=== PATIENT | female | born 1985 | race Caucasian/White ===

== ENCOUNTER 2018-10-04 11:02 | Outpatient (REF) | payer MEDICAID, SELFPAY ==
--- NOTE | 2018-10-04 10:30 | PAPFT_PTH ---
PATIENT: Wilfredo Niño LOC: DAVID U#:[id number] AGE/SX: 33/F ROOM: RE10/04/[address]: EDUAR Acosta : 1985 BED: DIS: 10/04/2018 SPEC #: [id number] RECD: 10/04/18 13:09 STATUS: PEDRO LUIS JAMES #: [id number] TEO: 10/04/18 10:[address]: Lanie Gates DEPT: [facility] Cytology RECD BY: Sheryl Nicolas ENTERED: 10/04/18 13:09 SP TYPE: PAPFT OTHR DR: Miseal Khan MD Tissues: 1 - CX/ENDOCX FOR PAP SMEARS Procedures: PAP THIN PREP/UVM Screening HPV DNA PROBE Comments: [id number]
[2018-10-05 13:07] LABS: Chlamydia Result Negative; GC Result Negative; Specimen Description CERVIX
== END 2018-10-04 11:22 ==
LOC: LBN 11:02
PROVIDERS: PCP Pediatrics; Visit Provider Nurse Practitioner Family
DX: Z11.3 Encounter for screening for infections with a predominantly sexual mode of transmission (principal); Z12.4 Encounter for screening for malignant neoplasm of cervix; Z11.51 Encounter for screening for human papillomavirus (HPV)
CPT/HCPCS: 87491; 87591; 88142; 87624

== ENCOUNTER 2020-03-25 15:12 | Outpatient (REF) | payer MEDICAID, SELFPAY ==
[2020-03-26 15:38] LABS: Chlamydia Result Negative (Negative); GC Result Negative (Negative)
== END 2020-03-25 15:32 ==
LOC: LBN 15:12
PROVIDERS: PCP Pediatrics; Visit Provider Nurse Practitioner Family
DX: Z11.3 Encounter for screening for infections with a predominantly sexual mode of transmission (principal)
CPT/HCPCS: 87491; 87591

== ENCOUNTER 2021-01-01 16:00 | Outpatient (REF) | payer MEDICAID, SELFPAY ==
--- NOTE | 2021-01-01 15:45 | VUL_PTH ---
PATIENT: Wilfredo Niño LOC: N U#:[id number] AGE/SX: 35/F ROOM: RE01/01/[address]: Lynn Cedeño DO : 1985 BED: DIS: 01/01/2021 SPEC #: [id number] RECD: 01/01/21 16:24 STATUS: PEDRO LUIS REFernando #: [id number] TEO: 01/01/21 15:[address]: Lynn Cedeño DEPT: Surgical Specimen RECD BY: Sheryl Nicolas Tissues: 1 - VULVA BIOPSY Procedures: GROSS AND MICRO LEVEL 4 SPECIAL STAIN 1 Comments: [id number]
== END 2021-01-01 16:01 | disposition home or self-care (01) ==
LOC: LBN 16:00
PROVIDERS: Visit Provider Obstetrics & Gynecology
DX: N90.3 Dysplasia of vulva, unspecified (principal); D28.0 Benign neoplasm of vulva
CPT/HCPCS: 88305; 88312

== ENCOUNTER 2021-01-23 02:50 | Outpatient (CLI) | payer MEDICAID, SELFPAY ==
[2021-01-23 08:01] LABS: Abs Immature Grans 0.02 10^3/uL (0.0-0.06); Absolute Basophil Count 0.05 10^3/uL (0.0-0.2); Absolute Eosinophil Count 0.06 10^3/uL (0.0-0.7); Absolute Lymphocyte Count 1.75 10^3/uL (1.2-3.4); Absolute Monocyte Count 0.45 10^3/uL (0.1-0.8); Absolute Neutrophil Count 3.25 10^3/uL (1.2-6.7); Basophils % 0.9; Eosinophils % 1.1; HGB 8.4 g/dL (11.2-15.7); Immature Grans % 0.4; Lymphocytes % 31.4; MCH 21.2 pg (27.0-33.0); MCV 73.2 fL (80-95); MPV 9.4 fL (8.0-11.0); Monocytes % 8.1; Neutrophils % 58.1; Nucleated RBC 0 %; Platelet Count 280 10^3/uL (130-400); RBC 3.96 10^6/uL (3.93-5.22); RDW 17.1 % (11.7-14.6); RDW-SD 45.3 fL; WBC 5.58 10^3/uL (4.4-10.8)
[2021-01-23 08:06] LABS: ESR 23 mm/hr (0-20)
[2021-01-23 08:21] LABS: Diff Comment RBC Morph Reviewed; Hypochromasia 2+; Microcytosis 2+
[2021-01-23 09:20] LABS: ALT 26 U/L (14-59); AST 22 U/L (15-37); Albumin 3.9 g/dL (3.4-5.0); Alkaline Phosphatase 46 U/L (46-116); Anion Gap 9.1 mmol/L (3-11); BUN 7 mg/dL (7-18); Bilirubin, Total 0.5 mg/dL (0.2-1.0); CO2 25.9 mmol/L (21.0-32.0); CREATININE 0.7 mg/dL (0.55-1.02); Calcium 8.8 mg/dL (8.5-10.1); Chloride 104 mmol/L (98-107); Glucose 84 mg/dL (74-106); Sodium 139 mmol/L (136-145); Total Protein 7.7 g/dL (6.4-8.2)
[2021-01-23 09:22] LABS: C-Reactive Protein < 0.05 mg/dL (0.0-0.3)
[2021-01-24 12:34] LABS: HSV Type 1 Ab, IgG Negative (Negative); HSV Type 2 Ab, IgG Negative (Negative)
[2021-01-25 09:54] LABS: HBs Antibody, Quant 3.5 mIU/mL (See Note); Hepatitis B Surface Ab Negative (See Note)
[2021-01-25 10:16] LABS: Hepatitis B Surface Ag Negative (Negative)
[2021-01-25 11:03] LABS: Hepatitis C Ab w Rflx HCV PCR Negative (Negative)
[2021-01-27 15:13] LABS: TB Interpretation Negative (Negative)
== END 2021-01-23 02:51 | disposition home or self-care (01) ==
LOC: LBO 02:50
PROVIDERS: Nurse Practitioner Adult Health; Visit Provider Obstetrics & Gynecology
DX: K60.1 Chronic anal fissure (principal); Z11.59 Encounter for screening for other viral diseases
CPT/HCPCS: 36415; 80053; 85652; 86706; 86803; 87340; 85025; 86140; 86480; 86695; 86696

== ENCOUNTER 2021-03-06 02:31 | Outpatient (CLI) | payer MEDICAID, SELFPAY ==
[2021-03-07 10:39] LABS: Hep B Core Antibody Negative (Negative)
[2021-03-12 16:25] LABS: 6-Methylmercaptopurine ribosid 6.88 nmol/mL/h (5.04-9.57)
== END 2021-03-06 02:32 | disposition home or self-care (01) ==
LOC: LBO 02:31
PROVIDERS: Visit Provider Internal Medicine Gastroenterology
DX: K50.118 Crohn's disease of large intestine with other complication (principal)
CPT/HCPCS: 36415; 82657; 86704

== ENCOUNTER 2021-05-02 01:29 | Outpatient (CLI) | payer MEDICAID, SELFPAY ==
--- NOTE | 2021-05-02 06:30 | DI.US_ITS ---
Exam(s) US PELVIS EXAM: US PELVIS CLINICAL HISTORY: check fibroids,D25.9. TECHNIQUE: Transabdominal pelvic ultrasound was performed using standard protocol. The patient elec tito to forego the transvaginal portion of the examination. FINDINGS: KIDNEYS: Kidneys are symmetric in size. No evidence of renal calculi. No evidence of hydronephrosis. No renal mass or cyst identified. UTERUS: Position: Anteverted. Size: 9.2 long by 8.2 AP by 8.8 transverse cm Endometrium: 0.8 cm. Normal for patient's menstrual status. Myometrium: 3 discrete intramural uterine fibroids are visualized. The largest is in the left aspect of the body and measures 2.5 x 5 x 5.6 cm. The smallest is in the fundus and measures 1.8 x 2.1 cm. There is a 3 x 3 cm fibroid in the right aspect of the uterine fundus. Cervix: Unremarkable. OVARIES: Right: 3.6 x 2.7 x 2 cm Cyst or mass: Small functional cysts are present. Left: 4.8 x 2.2 x 2 cm Cyst or mass: Small functional cysts are present. DOPPLER: Color: Symmetric and uniform flow to both ovaries. No hyperemia. Duplex: Normal ovarian arterial waveforms visualized. CUL-DE-SAC: Free fluid: None. Other: None. IMPRESSION: 1. Normal sonographic appearance of the kidneys. 2. Fibroid uterus. The largest measures 5.6 cm in maximum diameter. 3. Unremarkable bilateral ovaries. DATA REPOSITORY:
== END 2021-05-02 01:49 ==
PROVIDERS: Visit Provider Obstetrics & Gynecology
DX: D25.1 Intramural leiomyoma of uterus (principal)
CPT/HCPCS: 76856

== ENCOUNTER 2021-05-08 01:27 | Outpatient (RCR) | payer MEDICAID, SELFPAY ==
[2021-05-08] VITALS (7 sets, daily range): BP systolic 123–147; BP diastolic 76–89; PULSE 63–76; RESP 16–18; TEMP 36.6–37.1; O2SAT 100
[2021-05-08] MEDS: Loratidine 10 MG TAB PO (08:02)
[2021-05-08] MEDS: Acetaminophen 325 MG TAB PO (08:02)
[2021-05-08] MEDS: inFLIXimab 300 MG in Normal Saline 250 ML 125 MG IVPB (08:39)
[2021-05-08] MEDS: Normal Saline Flush 10 ML SYR IVP (08:39)
== END 2021-05-19 23:59 | disposition home or self-care (01) ==
LOC: INF 01:27
PROVIDERS: Visit Provider Internal Medicine
DX: K50.90 Crohn's disease, unspecified, without complications (principal)
CPT/HCPCS: 96365; 96366; 96413; 96415; J1745

== ENCOUNTER 2021-06-19 03:01 | Outpatient (RCR) | payer MEDICAID, SELFPAY ==
[2021-05-20 00:16] VITALS: BP 123/76; PULSE 68; RESP 16; TEMP 37.1
[2021-05-22] VITALS (8 sets, daily range): BP systolic 113–139; BP diastolic 67–84; PULSE 58–70; RESP 16; TEMP 36.3–37; O2SAT 99–100
[2021-05-22] MEDS: Loratidine 10 MG TAB PO (07:49)
[2021-05-22] MEDS: Normal Saline Flush 10 ML SYR IVP (07:50)
[2021-05-22] MEDS: Acetaminophen 325 MG TAB PO (07:50)
[2021-05-22] MEDS: inFLIXimab 300 MG in Normal Saline 250 ML 125 MG IVPB (08:08)
[2021-05-22 08:10] LABS: Abs Immature Grans 0.01 10^3/uL (0.0-0.06); Absolute Basophil Count 0.04 10^3/uL (0.0-0.2); Absolute Eosinophil Count 0.07 10^3/uL (0.0-0.7); Absolute Lymphocyte Count 1.84 10^3/uL (1.2-3.4); Absolute Monocyte Count 0.28 10^3/uL (0.1-0.8); Absolute Neutrophil Count 2.82 10^3/uL (1.2-6.7); Basophils % 0.8; Eosinophils % 1.4; HCT 35.7 % (36.0-46.0); HGB 11.1 g/dL (11.2-15.7); Immature Grans % 0.2; Lymphocytes % 36.4; MCH 28.8 pg (27.0-33.0); MCHC 31.1 % (32.0-36.0); MCV 92.5 fL (80-95); MPV 9.5 fL (8.0-11.0); Monocytes % 5.5; Neutrophils % 55.7; Nucleated RBC 0 %; Platelet Count 243 10^3/uL (130-400); RBC 3.86 10^6/uL (3.93-5.22); RDW-SD 43.2 fL; WBC 5.06 10^3/uL (4.4-10.8)
[2021-05-22 08:25] LABS: ALT 22 U/L (14-59); AST 21 U/L (15-37); Albumin 3.8 g/dL (3.4-5.0); Alkaline Phosphatase 36 U/L (46-116); Bilirubin, Direct 0.3 mg/dL (0.0-0.2); Bilirubin, Total 1.1 mg/dL (0.2-1.0); Total Protein 7.5 g/dL (6.4-8.2)
[2021-05-22 08:27] LABS: C-Reactive Protein < 0.05 mg/dL (0.0-0.3)
[2021-06-19] MEDS: Acetaminophen 325 MG TAB PO (08:00)
[2021-06-19] MEDS: Loratidine 10 MG TAB PO (08:01)
[2021-06-19] MEDS: Normal Saline Flush 10 ML SYR IVP (08:01)
[2021-06-19 08:15] VITALS: BP 124/81; PULSE 74; RESP 16; TEMP 37; O2SAT 100
[2021-06-19] MEDS: inFLIXimab 300 MG in Normal Saline 250 ML 125 MG IVPB (08:19)
[2021-06-19 08:40] VITALS: BP 120/78; PULSE 68; RESP 16; TEMP 36.8; O2SAT 99
[2021-06-19 08:58] VITALS: BP 125/76; PULSE 67; RESP 16; TEMP 36.6; O2SAT 100
[2021-06-19 09:12] VITALS: BP 130/82; PULSE 65; RESP 16; TEMP 36.7; O2SAT 100
[2021-06-19 09:44] VITALS: BP 118/67; PULSE 66; RESP 16; TEMP 36.7; O2SAT 100
[2021-06-19 10:16] VITALS: BP 121/73; PULSE 64; RESP 16; TEMP 36.7; O2SAT 97
== END 2021-06-19 23:59 | disposition home or self-care (01) ==
LOC: INF 03:01
PROVIDERS: Internal Medicine Gastroenterology; Visit Provider Internal Medicine
DX: K50.018 Crohn's disease of small intestine with other complication (principal); K50.119 Crohn's disease of large intestine with unspecified complications
CPT/HCPCS: 36415; 80076; 96365; 96366; 96413; 96415; 85025; 86140; J1745

== ENCOUNTER 2021-08-29 01:04 | Outpatient (RCR) | payer MEDICAID, SELFPAY ==
[2021-08-20 00:11] VITALS: BP 121/73; PULSE 64; RESP 16; TEMP 36.7
[2021-08-29] MEDS: Acetaminophen 325 MG TAB PO (08:40)
[2021-08-29] MEDS: Loratidine 10 MG TAB PO (08:40)
[2021-08-29 08:50] VITALS: BP 132/63; PULSE 66; RESP 14; TEMP 36.5; O2SAT 100
[2021-08-29 09:01] LABS: Abs Immature Grans 0.01 10^3/uL (0.0-0.06); Absolute Basophil Count 0.05 10^3/uL (0.0-0.2); Absolute Eosinophil Count 0.07 10^3/uL (0.0-0.7); Absolute Lymphocyte Count 1.03 10^3/uL (1.2-3.4); Absolute Monocyte Count 0.36 10^3/uL (0.1-0.8); Absolute Neutrophil Count 3.58 10^3/uL (1.2-6.7); Eosinophils % 1.4; HCT 31.4 % (36.0-46.0); Immature Grans % 0.2; Lymphocytes % 20.2; MCH 29.2 pg (27.0-33.0); MCHC 31.8 % (32.0-36.0); MCV 92 fL (80-95); MPV 9.5 fL (8.0-11.0); Monocytes % 7.1; Neutrophils % 70.1; Platelet Count 330 10^3/uL (130-400); RBC 3.43 10^6/uL (3.93-5.22); RDW 14.1 % (11.7-14.6); RDW-SD 46.8 fL
[2021-08-29 09:23] LABS: ALT 39 U/L (14-59); AST 47 U/L (15-37); Alkaline Phosphatase 42 U/L (46-116); Bilirubin, Direct 0.2 mg/dL (0.0-0.2); Bilirubin, Total 0.8 mg/dL (0.2-1.0); C-Reactive Protein 0.06 mg/dL (0.0-0.3); Total Protein 7.4 g/dL (6.4-8.2)
[2021-08-29] MEDS: inFLIXimab 300 MG in Normal Saline 250 ML 125 MG IVPB (09:30)
[2021-08-29 09:45] VITALS: BP 124/81; PULSE 69; RESP 16; TEMP 36.6; O2SAT 100
[2021-08-29] MEDS: Normal Saline Flush 10 ML SYR IVP (09:46)
[2021-08-29 10:05] VITALS: BP 121/76; PULSE 67; RESP 14; TEMP 36.5; O2SAT 100
[2021-08-29 10:15] VITALS: BP 120/73; PULSE 57; RESP 16; TEMP 36.5; O2SAT 100
[2021-08-29 10:30] VITALS: BP 134/80; PULSE 72; RESP 16; TEMP 36.8; O2SAT 99
[2021-08-29 11:00] VITALS: BP 128/80; PULSE 7; RESP 16; TEMP 36.6; O2SAT 99
== END 2021-09-18 23:59 | disposition home or self-care (01) ==
LOC: INF 01:04
PROVIDERS: Visit Provider Internal Medicine
DX: K50.018 Crohn's disease of small intestine with other complication (principal); K50.119 Crohn's disease of large intestine with unspecified complications
CPT/HCPCS: 36415; 80076; 96365; 96366; 96413; 96415; 85025; 86140; J1745

== ENCOUNTER 2021-09-25 04:14 | Outpatient (CLI) | payer MEDICAID, SELFPAY ==
[2021-09-25 10:14] LABS: Absolute Basophil Count 0.04 10^3/uL (0.0-0.2); Absolute Eosinophil Count 0.05 10^3/uL (0.0-0.7); Absolute Lymphocyte Count 1.64 10^3/uL (1.2-3.4); Absolute Monocyte Count 0.39 10^3/uL (0.1-0.8); Absolute Neutrophil Count 1.36 10^3/uL (1.2-6.7); Basophils % 1.1; Eosinophils % 1.4; HGB 11.2 g/dL (11.2-15.7); Lymphocytes % 47.1; MCH 29.2 pg (27.0-33.0); MCHC 32.9 % (32.0-36.0); MCV 89 fL (80-95); MPV 8.8 fL (8.0-11.0); Monocytes % 11.2; Neutrophils % 39.2; Platelet Count 317 10^3/uL (130-400); RBC 3.84 10^6/uL (3.93-5.22); RDW 13.5 % (11.7-14.6); RDW-SD 44.2 fL; WBC 3.48 10^3/uL (4.4-10.8)
[2021-09-25 10:34] LABS: ALT 28 U/L (14-59); AST 22 U/L (15-37); Albumin 3.9 g/dL (3.4-5.0); Alkaline Phosphatase 36 U/L (46-116); Bilirubin, Direct 0.2 mg/dL (0.0-0.2); Bilirubin, Total 0.5 mg/dL (0.2-1.0); Total Protein 7.5 g/dL (6.4-8.2)
[2021-09-25 10:35] LABS: C-Reactive Protein < 0.05 mg/dL (0.0-0.3)
[2021-09-25 10:44] LABS: Iron 23 ug/dL (50-170); Total Iron Binding Capacity 338 ug/dL (250-450); Transferrin Sat 7 % (15-50)
[2021-09-25 11:11] LABS: Ferritin 13 ng/mL (8-252); Vitamin B12 390 pg/mL (193-986)
[2021-09-27 23:50] LABS: Infliximab 33 mcg/mL (<=5.0)
== END 2021-09-25 04:15 | disposition home or self-care (01) ==
LOC: LBO 04:14
PROVIDERS: Visit Provider Internal Medicine Gastroenterology
DX: K50.018 Crohn's disease of small intestine with other complication (principal); K50.119 Crohn's disease of large intestine with unspecified complications; D64.9 Anemia, unspecified
CPT/HCPCS: 36415; 80076; 82397; 82657; 82607; 82728; 83540; 83550; 85025; 86140

== ENCOUNTER 2021-10-16 02:46 | Outpatient (RCR) | payer MEDICAID, SELFPAY ==
[2021-09-19 00:17] VITALS: BP 128/80; PULSE 7; RESP 16; TEMP 36.6
[2021-10-16] VITALS (7 sets, daily range): BP systolic 111–124; BP diastolic 69–78; PULSE 57–71; RESP 16; TEMP 36.5–36.8; O2SAT 100
[2021-10-16] MEDS: Acetaminophen 325 MG TAB 650 MG PO (08:12)
[2021-10-16] MEDS: diphenhydrAMINE 25 MG CAP PO (08:12)
[2021-10-16] MEDS: Normal Saline Flush 10 ML SYR IVP (08:43)
[2021-10-16] MEDS: inFLIXimab 600 MG in Normal Saline 250 ML 125 MG IVPB (08:43)
== END 2021-10-19 23:59 | disposition home or self-care (01) ==
LOC: INF 02:46
PROVIDERS: Visit Provider Internal Medicine
DX: K50.90 Crohn's disease, unspecified, without complications (principal)
CPT/HCPCS: 96365; 96366; 96413; 96415; J1745

== ENCOUNTER 2021-12-26 01:14 | Outpatient (RCR) | payer MEDICAID, SELFPAY ==
[2021-12-20 00:02] VITALS: BP 114/72; PULSE 62; RESP 16; TEMP 36.5
[2021-12-26] VITALS (7 sets, daily range): BP systolic 117–150; BP diastolic 70–88; PULSE 56–78; RESP 16; TEMP 36.5–36.8; O2SAT 99–100
[2021-12-26] MEDS: Acetaminophen 325 MG TAB PO (07:54)
[2021-12-26] MEDS: Loratidine 10 MG TAB PO (07:54)
[2021-12-26] MEDS: Normal Saline Flush 10 ML SYR IVP (07:55)
[2021-12-26 08:21] LABS: Abs Immature Grans 0.01 10^3/uL (0.0-0.06); Absolute Basophil Count 0.05 10^3/uL (0.0-0.2); Absolute Eosinophil Count 0.09 10^3/uL (0.0-0.7); Absolute Lymphocyte Count 1.49 10^3/uL (1.2-3.4); Absolute Monocyte Count 0.38 10^3/uL (0.1-0.8); Basophils % 1.3; Eosinophils % 2.4; HCT 35.7 % (36.0-46.0); HGB 11.2 g/dL (11.2-15.7); Immature Grans % 0.3; Lymphocytes % 40.1; MCHC 31.4 % (32.0-36.0); MCV 89 fL (80-95); MPV 10.5 fL (8.0-11.0); Monocytes % 10.2; Neutrophils % 45.7; Platelet Count 255 10^3/uL (130-400); RDW 16.2 % (11.7-14.6); RDW-SD 53.1 fL; WBC 3.72 10^3/uL (4.4-10.8)
[2021-12-26] MEDS: inFLIXimab 300 MG in Normal Saline 250 ML 125 MG IVPB (08:27)
[2021-12-26 08:39] LABS: ALT 35 U/L (14-59); AST 32 U/L (15-37); Albumin 4.4 g/dL (3.4-5.0); Alkaline Phosphatase 38 U/L (46-116); Bilirubin, Direct 0.2 mg/dL (0.0-0.2); Bilirubin, Total 0.9 mg/dL (0.2-1.0); C-Reactive Protein 0.06 mg/dL (0.0-0.3); Total Protein 8.1 g/dL (6.4-8.2)
== END 2022-01-19 23:59 | disposition home or self-care (01) ==
LOC: INF 01:14
PROVIDERS: Internal Medicine Gastroenterology; Visit Provider Internal Medicine
DX: K50.018 Crohn's disease of small intestine with other complication (principal); K50.119 Crohn's disease of large intestine with unspecified complications
CPT/HCPCS: 36415; 80076; 96365; 96366; 96413; 96415; 85025; 86140; J1745

== ENCOUNTER 2022-02-20 01:44 | Outpatient (RCR) | payer MEDICAID, SELFPAY ==
[2022-01-20 00:15] VITALS: BP 121/70; PULSE 66; RESP 16; TEMP 36.7
[2022-02-20] VITALS (7 sets, daily range): BP systolic 109–125; BP diastolic 67–80; PULSE 53–70; RESP 16; TEMP 36.9–37.6; O2SAT 100
[2022-02-20] MEDS: Acetaminophen 325 MG TAB PO (07:54)
[2022-02-20] MEDS: Loratidine 10 MG TAB PO (07:54)
[2022-02-20] MEDS: inFLIXimab 300 MG in Normal Saline 250 ML 125 MG IVPB (08:26)
[2022-02-20] MEDS: Normal Saline Flush 10 ML SYR IVP (08:26)
== END 2022-03-21 23:59 | disposition home or self-care (01) ==
LOC: INF 01:44
PROVIDERS: Visit Provider Family Medicine
DX: K50.90 Crohn's disease, unspecified, without complications (principal)
CPT/HCPCS: 96365; 96366; 96413; 96415; J1745

== ENCOUNTER 2022-04-17 01:00 | Outpatient (RCR) | payer MEDICAID, SELFPAY ==
[2022-03-22 00:01] VITALS: BP 122/76; PULSE 54; RESP 16; TEMP 37.3
[2022-04-17] MEDS: Normal Saline Flush 10 ML SYR IVP (08:04)
[2022-04-17] MEDS: Acetaminophen 325 MG TAB PO (08:04)
[2022-04-17] MEDS: Loratidine 10 MG TAB PO (08:04)
[2022-04-17 08:07] VITALS: BP 118/68; PULSE 56; RESP 17; TEMP 36.9; O2SAT 100
[2022-04-17] MEDS: inFLIXimab 300 MG in Normal Saline 250 ML 125 MG IVPB (08:23)
[2022-04-17 08:40] VITALS: BP 114/73; PULSE 58; RESP 17; TEMP 37; O2SAT 100
[2022-04-17 08:48] LABS: HCT 32.4 % (36.0-46.0); HGB 10.3 g/dL (11.2-15.7); MCH 27.5 pg (27.0-33.0); MCHC 31.8 % (32.0-36.0); MCV 86 fL (80-95); MPV 10.8 fL (8.0-11.0); Platelet Count 267 10^3/uL (130-400); RBC 3.75 10^6/uL (3.93-5.22); RDW-SD 40.7 fL; WBC 4.51 10^3/uL (4.4-10.8)
[2022-04-17 08:57] VITALS: BP 132/80; PULSE 54; RESP 16; TEMP 36.9; O2SAT 100
[2022-04-17 09:01] LABS: ALT 20 U/L (14-59); AST 26 U/L (15-37); Albumin 4.1 g/dL (3.4-5.0); Alkaline Phosphatase 37 U/L (46-116); Bilirubin, Direct 0.1 mg/dL (0.0-0.2); Bilirubin, Total 0.4 mg/dL (0.2-1.0); Total Protein 7.8 g/dL (6.4-8.2)
[2022-04-17 09:04] LABS: C-Reactive Protein < 0.05 mg/dL (0.0-0.3)
[2022-04-17 09:10] VITALS: BP 128/79; PULSE 58; RESP 16; TEMP 37.1; O2SAT 100
[2022-04-17 09:25] VITALS: BP 122/79; PULSE 56; RESP 16; TEMP 37.1; O2SAT 100
[2022-04-17 09:55] VITALS: BP 116/69; PULSE 56; RESP 16; TEMP 37; O2SAT 99
== END 2022-04-21 23:59 | disposition home or self-care (01) ==
LOC: INF 01:00
PROVIDERS: Visit Provider Family Medicine
DX: K50.90 Crohn's disease, unspecified, without complications (principal)
CPT/HCPCS: 36415; 80076; 85027; 96365; 96366; 96413; 96415; 86140; J1745

== ENCOUNTER 2022-06-12 01:54 | Outpatient (RCR) | payer MEDICAID, SELFPAY ==
[2022-04-22 00:03] VITALS: BP 116/69; PULSE 56; RESP 16; TEMP 37
[2022-06-12] VITALS (7 sets, daily range): BP systolic 119–133; BP diastolic 75–83; PULSE 61–79; RESP 16–17; TEMP 36.4–36.6; O2SAT 100
[2022-06-12] MEDS: Acetaminophen 325 MG TAB PO (08:05)
[2022-06-12] MEDS: Normal Saline Flush 10 ML SYR IVP (08:05)
[2022-06-12] MEDS: Loratidine 10 MG TAB PO (08:05)
[2022-06-12] MEDS: inFLIXimab 300 MG in Normal Saline 250 ML 125 MG IVPB (08:40)
[2022-06-12 09:01] LABS: Abs Immature Grans 0.01 10^3/uL (0.0-0.06); Absolute Basophil Count 0.07 10^3/uL (0.0-0.2); Absolute Eosinophil Count 0.41 10^3/uL (0.0-0.7); Absolute Lymphocyte Count 2.09 10^3/uL (1.2-3.4); Absolute Monocyte Count 0.36 10^3/uL (0.1-0.8); Absolute Neutrophil Count 1.65 10^3/uL (1.2-6.7); Basophils % 1.5; Eosinophils % 8.9; HCT 31.4 % (36.0-46.0); HGB 10.3 g/dL (11.2-15.7); Immature Grans % 0.2; Lymphocytes % 45.5; MCH 28.6 pg (27.0-33.0); MCHC 32.8 % (32.0-36.0); MCV 87 fL (80-95); Monocytes % 7.8; Neutrophils % 36.1; Platelet Count 323 10^3/uL (130-400); RDW 15.7 % (11.7-14.6); RDW-SD 50.4 fL; WBC 4.59 10^3/uL (4.4-10.8)
[2022-06-12 09:33] LABS: ALT 21 U/L (14-59); AST 27 U/L (15-37); Albumin 3.7 g/dL (3.4-5.0); Alkaline Phosphatase 49 U/L (46-116); Bilirubin, Direct 0.2 mg/dL (0.0-0.2); Bilirubin, Total 0.8 mg/dL (0.2-1.0); Total Protein 6.9 g/dL (6.4-8.2)
[2022-06-12 09:57] LABS: Iron 26 ug/dL (50-170); Total Iron Binding Capacity 334 ug/dL (250-450); Transferrin Sat 8 % (15-50)
[2022-06-12 10:01] LABS: Ferritin 15 ng/mL (8-252)
[2022-06-15 10:17] LABS: IgA 245 mg/dL (85-499)
[2022-06-15 13:34] LABS: Tissue Transglutaminase IgA <1.2 U/mL (<4.0)
[2022-06-15 14:07] LABS: TB Interpretation Negative (Negative); TB1 Ag minus Nil 0.01 IU/ml; TB2 Ag minus Nil 0.01 IU/mL
[2022-06-18 19:09] LABS: Infliximab 11 mcg/mL (<=5.0)
== END 2022-06-19 23:59 | disposition home or self-care (01) ==
LOC: INF 01:54
PROVIDERS: Visit Provider Family Medicine
DX: K50.119 Crohn's disease of large intestine with unspecified complications (principal); K50.018 Crohn's disease of small intestine with other complication; D50.0 Iron deficiency anemia secondary to blood loss (chronic)
CPT/HCPCS: 36415; 80076; 82397; 82784; 96365; 96366; 82728; 83516; 83540; 83550; 85025; 86140; 86480; J1745

== ENCOUNTER 2022-08-24 02:17 | Outpatient (CLI) | payer MEDICAID, SELFPAY ==
--- NOTE | 2022-08-24 07:45 | DI.US_ITS ---
Exam(s) US PELVIS TRANSVAGINAL EXAM: US PELVIS TRANSVAGINAL CLINICAL HISTORY: soft tissue mass, rlq abd mass, r19.03. TECHNIQUE: Transabdominal and transvaginal pelvic ultrasound was performed using standard protocol. US US PELVIS from 05/02/2021 FINDINGS: UTERUS: Position: Anteverted. Size: 14.2 long by 9.1 AP by 8.9 transverse cm Endometrium: 1.5 cm. Normal for patient's menstrual status. Myometrium: There are multiple uterine fibroids present. The largest measures 7.4 x 7.3 x 8.1 cm. T his compares to 7.5 x 5 x 5.6 cm. In the prior report, dated 05/02/2021, the measurement of the large st fibroid in the left should read 7.5 x 5 x 5.6 cm. Cervix: Unremarkable. OVARIES: Right: 3.6 x 2.1 x 3.1 cm Cyst or mass: No suspicious cystic or solid masses. Left: 6 x 3 x 3.6 cm Cyst or mass: No suspicious cystic or solid masses. DOPPLER: Color: Symmetric and uniform flow to both ovaries. CUL-DE-SAC: Free fluid: None. Other: None. IMPRESSION: 1. Enlarged fibroid uterus. Increase in size of the largest uterine fibroid which now measures 7.4 x 7.3 x 8.1 cm. This compares to 7.5 x 5 x 5.6 cm. 2. Unremarkable bilateral ovaries. DATA REPOSITORY:
== END 2022-08-24 02:37 ==
PROVIDERS: Visit Provider Obstetrics & Gynecology
DX: R19.03 Right lower quadrant abdominal swelling, mass and lump (principal); N85.2 Hypertrophy of uterus
CPT/HCPCS: 76830; 76856

== ENCOUNTER 2022-09-03 01:16 | Outpatient (CLI) | payer MEDICAID, SELFPAY ==
[2022-09-03 19:09] LABS: LH 5.1 mIU/mL (See Note)
== END 2022-09-03 01:17 | disposition home or self-care (01) ==
LOC: LBO 01:16
PROVIDERS: Visit Provider Advanced Practice Midwife
DX: D25.9 Leiomyoma of uterus, unspecified (principal)
CPT/HCPCS: 36415; 83001; 83002

== ENCOUNTER → 2022-12-21 03:18 | Outpatient (CLI) | payer MEDICAID, SELFPAY ==
--- NOTE | 2022-12-21 07:00 | DI.RAD_ITS ---
Exam(s) XR FOOT LT COMPLETE EXAM: XR FOOT LT COMPLETE CLINICAL HISTORY: Painful lt bunion,LT FOOT PAIN, M79.672. TECHNIQUE: 2D digital imaging was performed. COMPARISON: No exams were available for comparison FINDINGS: 3 views No evidence of acute fracture or diastasis the Lisfranc joint. There is hallux valgus. No obvious degenerative changes in the great toe metatarsophalangeal joint. The more medial of the 2 sesamoid bones subjacent to the great toe metatarsal head is bipartite. No osseous lesions nor erosions nor significant osseous findings in the mid and hindfoot. IMPRESSION: Hallux valgus. DATA REPOSITORY: RADIATION DOSE DELIVERED:
== END ==
PROVIDERS: Visit Provider Podiatrist
DX: M20.12 Hallux valgus (acquired), left foot (principal)
CPT/HCPCS: 73630

== ENCOUNTER → 2023-10-14 01:01 | Outpatient (CLI) | payer MEDICAID, SELFPAY ==
--- OUTSIDE RECORDS SUMMARY | 2023-10-14 01:03 | XMS_ITS | Encounter Summary ---
Author Organization [facility] Address [address] [place] [address] Care Team Providers Care Tool Profiling Machine Set Up Operator Name Role Phone Unknown, Provider Primary Care Provider Encounter Details Date Type Department Care Team (Late st Contact Info) Description 10/04/2018 Results Only [facility] [phone] Lanie Gates, [address] [place] [phone] Social History Tobacco Use Types Packs/Day Years Used Date Smoking Tobacco: Never Assessed Sex and Gender Information Value Date Recorded Sex Assigned at Not on file Gender Identity Not on file Sexual Orientation Not on file documented as of this encounter Plan of Treatment Not on file documented as of this encounter Procedures Procedure Name Priority Date/Time Associated Diagnosis Comments PAP TEST- RESULT ONLY Routine 10/04/2018 0:00 EDT documented in this encounter Results * PAP TEST- RESULT ONLY (10/04/2018 0:00 EDT) Pathology Report: CYTOPATHOLOGY REPORT Reports generated via electronic interface contain original data; however they are lacking the format of the original report. Caution should be taken when reading/interpreti ng unformatted reports. Name: ? RENAY JOE ? Accession #: ? [id number] ? : ? 1985 (Age: 33) ??F ?Collect Date: ? 10/04/2018 ? Location: ? [facility] ? Receive Date: ? 10/05/2018 ? Provider: LANIE GATES TANK TESTER Copy to: ? Final Report SPECIMEN ADEQUACY ? Satisfactory for Evaluation - transformation zone component present GENERAL CATEGORIZATION ? Negative for Intraepithelial Lesion or Malignancy ?? Last Menstrual Period: 09/26/18 Specimen/Source: ??Pap Test, Cervix, ThinPrep Imaging System with manual evaluation Document reviewed and electronically signed by: ? JOSE Vergara(ASCP) ? Report ??Date: 10/06/2018 12:07 HPV with Pap Test ? Date Ordered: ? 10/06/2018 ? Status: ?? Signed Out ?Date Complete: ? 10/07/2018 ? By: ??System Interface ? Date Reported: ? 10/07/2018 ? Interpretation RESULT: Negative for HPV. No E6 or E7 mRNA is detected from HPV types 16,18,31,33,35, 39,45,51,52,56,58, 59,66, and 68 by chair inspector mediated amplification. Comments Document reviewed and electronically signed by: ? System Interface ? Report date: 10/07/2018 By the signature above, the attending physician certifies that he/she has personally conducted a gross and/or microscopic examination of the described specimens and rendered or confirmed the above diagnosis. End of Report [facility] 10/04/2018 10/05/2018 Lanie Gates TANK TESTER PATHOLOGY ORDERABLES [facility] [address] [place] [address] documented in this encounter Visit Diagnoses Not on filedocumented in this encounter Care Teams Tool Profiling Machine Set Up Operator Relationship Specialty Start Date End Date Unknown, Provider, PCP - General 06/21/15 09/19/19 documented as of this encounter
--- OUTSIDE RECORDS SUMMARY | 2023-10-14 01:03 | XMS_ITS | Encounter Summary ---
Author Organization [facility] [place] [address] Care Team Providers Care Appraiser Personal Property Name Role Phone None Primary Care Provider Unavailabl e Encounter Details Date Type Department Care Team (Latest Contact Info) Description 05/18/2022 8:00 AM EST TH Visit (TeleHealth) [place] [phone] Damaris May MD [facility] [place] [address] Crohn's disease of perianal region with complication; Crohn's disease of small intestine with other complication; Iron deficiency anemia due to chronic blood loss Social History Tobacco Use Types Packs/Day Years Used Date Smoking Tobacco: Former Cigarettes Smokeless Tobacco: Never Alcohol Use Standard Drinks/Week Comments Yes 0 (1 standard drink = 0.6 oz pur e alcohol) 5-8 beers/week Sex and Gender Information Value Date Recorded Sex Assigned at Female 01/20/2021 12:59 PM EDT Gender Identity Female 01/20/2021 12:59 PM EDT Sexual Orientation Straight 01/20/2021 12 :59 PM EDT documented as of this encounter Patient Instructions * Patient Instructions* Damaris May MD - 05/18/2022 8:00 AM EST Recommend: In person visit with colorectal Dr. Damaris Trimble to re-assess perianal area Add 1 capful of Miralax daily and adjust as needed to keep stools very soft Avoid straining If bleeding or pain, start sitz baths Continue Remicade 300mg (5mg/kg) Q8 weeks ([facility]); if ongoing symptoms and lower drug levels, we could increase to 10 mg/kg or shorten the interval Consider adding topical tacrolimus to fissure if ongoing inflammation Check Remicade trough prior to next infusion given cessation of 6-MP and lower dose infusion. Obtain celiac serologies for EVELIN (TTG IgA/Iga), updated quantiferon, iron studies, routine labs - sent Terrie, do with Remicade trough prior to infusion. Sent to [facility] but let us know and we'll Colonoscopy to evaluate for mucosal healing of ileal disease - please call [phone] to schedule Continue to avoid smoking tobacco Follow-up with PCP about iron and ELIGIBILITY CLERK about fibroids [facility] recommendations Follow regularly with dermatology, use sunscreen and avoid sunburns Follow with ELIGIBILITY CLERK regularly for pap smears Follow-up: 6 months documented in this encounter Progress Notes * Damaris May MD - 05/18/2022 8:00 AM EST [facility] Section of Gastroenterology and Hepatology IBD Telemedicine Follow-Up Visit PCP: None Referring provider: Adia Nieves NP Colorectal: Damaris Trimble MD HPI This is a 37 y.o. female former smoker who is engaging in follow-up for Crohn's disease manifestingas severe perianal fissures with histologic inactive proctitis and mild ileal disease. Meds: Remicade 300mg Q8 weeks Primary concern: ok to continue Remicade off 6-MP? Patient Active Problem List Diagnosis Code ??? 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 Crohn's disease of perianal region with complication K50.119 ??? Crohn's disease of small intestine with other complication K50.018 ??? Dermatitis L30.9 ??? Abnormal LFTs R79.89 ??? Iron deficiency anemia due to chronic blood loss D50.0 ??? Fibroids D21.9 ??? Abnormal uterine bleeding (AUB) N93.9 Interval follow-up - [facility] Gastro Pre-Visit Questionnaire 05/18/2022 7:59 AM EST - Filed by Patient Number One Goal/Concern N/A IBD Dx Crohn's Disease Believe Will Benefit from Tx Change Yes Avg Liquid/Soft Stool per Day 0 Stool Frequency/Day Normal number of stools Abd Pain Severity/Day Mild Blood in Stool Blood less than 50% of the time ! BM with Blood Alone No Well-being Generally well ED Visit Due to IBD No Hospitalized for IBD No Current Prednisone Use No Current Opioid Use for IBD No Confidence Level to Manage IBD 7 Q - Dh Ibd Qorus Study Participation 05/18/2022 7:59 AM EST - Filed by Patient IBD Qorus Study Participant I'm interested, but I don't have time now IBD Qorus Provider Questionnaire Did you and your patient discuss your patient???s number one concern today? Yes How recently have you assessed for mucosal healing with endoscopy/imaging? More than 12 months and less than 3 years How recently have you assessed for mucosal healing with fecal calprotectin? Never performed / I don???t know At the most recent assessment, had your patient achieved steroid-free mucosal healing? To answer YES, your patient should either have a Harper endoscopic subscore of 0-1 for UC or no more than a few aphthous ulcers in the ileum and/or colon for CD. Yes Did you discuss steroid-free mucosal healing with your patient today? Yes When do you next plan to assess for mucosal healing with endoscopy/imaging? Within the next 6 months When do you next plan to assess for mucosal healing with fecal calprotectin? I don???t know at thistime Which medication(s) is your patient currently taking for their IBD? Other specified medication(s): Infliximab If your patient has NOT achieved steroid-free mucosal healing, are you making any treatment changestoday? Other specified treatment change(s): NOT RELEVANT - patient has mucosal healing and No treatment change - will decide based on next objective disease assessment (endoscopy, imaging, labs) What is your Provider Global Assessment (PGA) for this patient today? Mild Do you believe your patient is at high risk of going to the ED for their IBD within the next month?No Labs Apr 17 2022 Hgb 10.3, CRP normal, AST 26, ALT 20 Feels better off 6-MP (fewer side effects) - significant hair loss, bloating Fissures stable, feels partially healed Largest fissure feels 75% smaller than it was - some bleeding on occasion with a harder stool. Painonly 1-2x/wk with a BM if stool is a little harder from not drinking enough water Smaller fissures don't typically bother her Fissures and tags are problematic in terms of cleaning Trying to remember to take oral iron supplement Next infusion end of May Review of systems: 14-point review of systems reviewed and negative except as above. My review of the patients's history and testing (labs, endoscopies, imaging) is summarized below: Crohn's disease ?? Initial presentation: perianal pain, bleeding with anal fissure and skin tags for a year, given creams (diltiazem) ?? Flex sig 06/2020 chronic anal fissure and skin tags - diltiazem ointment x 3 weeks ?? Initially seen Dr. Damaris Trimble, underwent Anoscopy: Findings include: no evidence of proctitis. ??Multiple fissures - posterior, left anterior, right anterior.??Pathology showed epithelioid granulomas.? TX: Protopic ointment 0.1 %, to external anal fissure twice daily x 8 weeks (failed nifedipine) - unable to get this due to insurance ?? Colonoscopy done by me 01/2021 with prominent perianal skin tags, mild inflammation (congestion,erythema, erosion at the IC valve without stricture) with an area of normal mucosa followed by mildinflammation (congestion, erythema, aphthous ulcers for 5cm), normal colon except mild erythema in the distal rectum, path with mild chronic active ileitis and inactive chronic proctitis with normal colon biopsies. ?? MRI pelvis 02/27/2021 not noting any fistula but reporting a 5mm perianal cyst? ?? Baseline ESR 23 (normal < 20) ?? Perianal pain persists ?? Nifedipine BID - 2.5 weeks - has noticed some difference - less bleeding, frequently longer without bleeding. At the worst - anorectal bleeding would be oozing into her underwear - has not been like this in a couple of months; recommended continuing for 6 weeks total ?? Insurance required use of 6-MP and budesonide prior to infliximab approval; ?? Infliximab 300mg started 05/08/2021 (dose #2 May 23) along with low dose 6- MP (1/2 pill) ?? Perianal fissures - after Remicade induction, all improved - 1 closed, 1 healing, pain much improved; BM frequency also down from 6 to 3 per day with no blood ?? CRP (05/22/21) <0.05 ?? Labs 05/22/2021: WBC 5.1, Hgb 11.1 (note Hgb 01/23/2021 was 8.4), Plts 243, AST/ALT /, T bili 1.1, D bili 0.3, CRP < 0.05 ?? Labs 08/29/2021: WBC 5.1, Hgb 10.0, Plts 330, T bili 0.8, AST 47, ALT 39, CRP 0.06 ?? As of 09/09/2019, perianal area: Two largest fissures - one closed completely in the first month,the other one has not healed, scar tissue skin tag has grown and new skin tag in the fissure. Discomfort in the anorectal area with BMs only, 80% of the time there is bleeding regardless of stool consistency, but blood is typically just on the tissue paper rather than in the bowl and is a small amou nt, wipes softly/blots. Seems like there are some smaller fissures developing. Skin tags are reallyuncomfortable - intimacy, certain exercises like squats - really wants these to heal (look normal, feel normal). Most progress happened early on during induction. ?? Increased Remicade to 600mg (10 mg/kg) Q8 weeks starting with Oct 2021 infusion ?? Summer 2021 Wilfredo states she has been feeling better, bleeding has subsided and anal fissures are healing - the one fissure that healed in the Spring remains healed and the larger one has closed up somewhat ?? IFX 33 mid-cycle after 300mg ?? Repeat labs September 25 2021 - ALT 28, AST 22, ferritin 13, iron sat 7%, B12 390, IFX 33 - mid-cycle (4 week level), Hgb 11.2, Hct 34, WBC 3.5 ?? 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 Remicade to 10mg/kg Q8 weeks, got one dose in October 2021 of 600mg; declined to continue this dose moving forward as she felt really good for 2 weeks after her infusion (no bloating, heaviness, gut fullness) but then felt sicker (weak and fatigued) and was concerned - requested we dose-reduce back to 300mg 5 mg/kg which we did ?? MRI pelvis Jan 2022 no visible fistula - C/o vaginal discharge, yellow, with BMs which led to pelvic MRI; noted fibroids, pilonidal cyst or inclusion cyst at coccyx ?? She stopped 6-MP end of Feb 2022 thought it was causing hair loss Current Outpatient Medications: ??? inFLIXimab (Remicade) 100 mg Recon Soln, See Admin Instructions., Disp: , Rfl: ??? ergocalciferol, vitamin D2, (VITAMIN D ORAL), every 24 hours., Disp: , Rfl: No Known Allergies No past medical history on file. Past Surgical History: Procedure Laterality Date ??? PRO COLONOSCOPY, BIOPSY N/A 01/31/2021 COLONOSCOPY FLEXIBLE, WITH BX (WRVU 3.66) performed by Damaris May MD at [facility] ??? PRO COLONOSCOPY, DIAGNOSTIC N/A 01/31/2021 COLONOSCOPY, DIAGNOSTIC performed by Damaris May MD at [facility] Social History Socioeconomic History ??? Marital status: Single Spouse name: Not on file ??? Number of children: Not on file ??? Years of education: Not on file ??? Highest education level: Not on file Occupational History ??? Not on file Tobacco Use ??? Smoking status: Former Packs/day: 1.00 Types: Cigarettes ??? Smokeless tobacco: Never Vaping Use ??? Vaping Use: Never used Substance and Sexual Activity ??? Alcohol use: Yes Comment: 5-8 beers/week ??? Drug use: Yes Types: Marijuana Comment: once a month ??? Sexual activity: Not on file Other Topics Concern ??? Not on file Social History Narrative ??? Not on file Social Determinants of Health Financial Resource Strain: Not on file Food Insecurity: Not on file Transportation Needs: Not on file Physical Activity: Not on file Housing Stability: Not on file No family history on file. Physical Exam: No physical exam performed during this phone/telemedicine visit. PERTINENT LABS AND IMAGING: As noted above Impression: Wilfredo is a 37 y.o. female former smoker who is engaging in follow-up for Crohn's disease. Laurel of disease and symptoms are perianal fissures (+granulomas on biopsy) and recurrent (skin tags) without detectable fistula on MRI pelvis. 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 Small perianal cyst on MRI, doubt this would be an abscess given the absence of a fistula. She does have mild inflammatory ileal disease with IC valve involvement. Wilfredo feels she's tolerating this dose of Remicade well, and there has been significant improvement(last fall 50%, now 75% subjective healing); however, she is still bothered by skin tags and her larger fissure. She would like the tags removed if possible; I am concerned this could traumatize the area and not be beneficial for her. Unclear at this point if incomplete benefit is 2/2 to ongoing inflammation from Crohn's disease or rather repeated trauma from occasional hard stools; certainly thelatter is not helping healing. Recommend continuing Remicade monotherapy which she agrees has been beneficial; there is some increased risk of antibodies but our intention was at some point to withdra w 6-MP anyway - will obtain a drug level and try to optimize. Recommend: ?? In person visit with colorectal Dr. Damaris Trimble to re-assess perianal area ?? Add 1 capful of Miralax daily and adjust as needed to keep stools very soft ?? Avoid straining ?? If bleeding or pain, start sitz baths ?? Continue Remicade 300mg (5mg/kg) Q8 weeks ([facility]); if ongoing symptoms and lower drug levels, we could increase to 10 mg/kg or shorten the interval if Wilfredo is amenable. ?? Consider adding topical tacrolimus to fissure if ongoing inflammation ?? Check Remicade trough prior to next infusion given cessation of 6-MP and lower dose infusion - sent to [facility] ?? Obtain celiac serologies for EVELIN (TTG IgA/Iga), updated quantiferon, iron studies, routine labs - sent to [facility], do with Remicade trough prior to infusion ?? Colonoscopy to evaluate for mucosal healing of ileal disease - please call [phone] to schedule ?? Continue to avoid smoking tobacco ?? Follow-up with PCP about iron and ELIGIBILITY CLERK about fibroids [facility] recommendations ?? Follow regularly with dermatology, use sunscreen and avoid sunburns ?? Follow with ELIGIBILITY CLERK regularly for pap smears Follow-up: 6 months IBD Health Maintenance (updated periodically) (1) Colonoscopy / Colon cancer surveillance: -Colonic disease: histologic proctitis only (2) Tobacco use: former (3) Vaccinations: -Flu: Recommend yearly. -Pneumonia vaccine (PCV15 or PCV20) -HPV (under age 45yo): -Varicella exposure previously or vaccine: -MMR vaccine history: -Zoster: Adults with IBD over the age of 50 should consider vaccination against herpes zoster, including certain subgroups of immunosuppressed patients. -Hep A/B: Hep B surface Ag and Ab neg (low titer Ab) (4) Tuberculosis risk assessment: -Quantiferon: Neg 2020 -Additional risk factors: (5) Depression screen: Down, depressed, hopeless? Little interest in doing things? (6) Skin Health: -Personal hx of skin cancers: -Prior use of AZA, MTX or anti-TNF: Past 6-MP, current Anti-TNF -Dermatology: Will need follow-up moving forward (7) Bone Health Risk assessment -Age (M>50 or post-menopausal): 37 y.o. -Gender: F -Prednisone use: No - budesonide short course -Prior fracture: -Vitamin D: -Hypogonadism: -Bone mineral density screening exam (DEXA): Recommend at diagnosis and consider it every 2-3 years thereafter (8) Last pap smear if female: Women with IBD on immunosuppressive therapy should undergo annual cervical cancer screening. (9) Radiation exposure (CTs): (10) : Would like to in the near future (11) TPMT: 2020 normal The risks, benefits and alternatives were discussed with the patient who understands and agrees with above. The patient was located in [place] at the time of their visit. TIME SPENT WITH PATIENT Time spent face to face with patient on the day of the encounter: 25 minutes Time spent documenting after encounter on the day of the encounter: 8 minutes Total time day of encounter: 33 minutes Damaris May MD 05/18/22 Damaris May MD Medical Liaisonpolo coach Section of Gastroenterology and Hepatology [facility] [email or web address] (p) documented in this encounter Plan of Treatment Scheduled Procedures Name Priority Associated Diagnoses Date/Ti me COLONOSCOPY, DIAGNOSTIC (WRV U 3.26) Crohn's disease of small intestine with other complication documented as of this encounter Visit Diagnoses Diagnosis Crohn's disease of perianal region with complication Crohn's disease of small intestine with other complication Iron deficiency anemia due to chronic blood loss Iron deficiency anemia secondary to blood loss (chronic) documented in this encounter Care Teams Appraiser Personal Property Relationship Specialty Start Date End Date None None PCP - General 09/08/21 documented as of this encounter
--- OUTSIDE RECORDS SUMMARY | 2023-10-14 01:03 | XMS_ITS | Referral Summary ---
Author Organization [facility] Address [address] [place] [address] Care Team Providers Care Pumping Station Supervisor Name Role Phone None, Provider Primary Care Provider Unavailabl e Unknown, Provider MD Unavailable Social History Tobacco Use Types Packs/Day Years Used Date Smoking Tobacco: Never Assessed Interpersonal Safety Answer Date Record ed Physically Hurt Never 10/23/2019 Verbally Threaten Not on file 10/23/2019 Sex and Gender Information Value Date Recorded Sex Assigned at Not on file Gender Identity Not on file Sexual Orientation Not on file Plan of Treatment Not on file Procedures Procedure Name Priority Date/Time Associated Diagnosis Comments HEPATITIS C AB W REFLEX TO HCV RNA BY PCR Routine 01/23/2021 7:48 EDT from Last 3 Months or Most Recently Relevant to Health Maintenance Results * HEPATITIS C AB W REFLEX TO HCV RNA BY PCR (01/23/2021 7:48 EDT) Hep C Antibody Negative Negative 01/25/2021 10:58 EDT [facility] Blood VENOUS BLOOD / Unknown 01/23/2021 7:48 EDT 01/23/2021 16:28 EDT Provider Outr Resulting Lab CHEMISTRY & BLOOD GAS ORDERABLES [facility] [address] [place] [address] from Last 3 Months or Most Recently Relevant to Health Maintenance Care Teams Pumping Station Supervisor Relationship Specialty Start Date End Date None, Provider PCP - General 09/20/19 Unknown, Provider, 09/20/19
--- OUTSIDE RECORDS SUMMARY | 2023-10-14 01:03 | XMS_ITS | Encounter Summary ---
Author Organization [facility] Address [address] [place] [id number] Care Team Providers Care Product Safety Engineer Name Role Phone None, Provider Primary Care Provider Unavailabl e Unknown, Provider MD Unavailable [phone] Encounter Details Date Type Department Care Team (Late st Contact Info) Description 03/06/2021 Lab Requisition [facility] - [address] [id number] Outr Resulting Lab, Provider Social History Tobacco Use Types Packs/Day Years [...] Name Priority Date/Time Associated Diagnosis Comments HEPATITIS B CORE ANTIBODY (TOTAL) Routine 03/06/2021 11:50 EST documented in this encounter Results * HEPATITIS B CORE ANTIBODY (TOTAL) (03/06/2021 11:50 EST) Hepatitis B Core Ab, Total Negative Negative 03/07/2021 10:34 EST [facility] Blood VENOUS BLOOD / Unknown 03/06/2021 11:50 EST 03/06/2021 21:23 EST Provider Outr Resulting Lab CHEMISTRY & BLOOD GAS ORDERABLES [facility] [address] [place] [address] documented in this encounter Visit Diagnoses Not on filedocumented in this encounter Care Teams Product Safety Engineer Relationship Specialty Start Date End Date None, Provider PCP - General 09/20/19 Unknown, Provider, 09/20/19 documented as of this encounter
--- OUTSIDE RECORDS SUMMARY | 2023-10-14 01:03 | XMS_ITS | Encounter Summary ---
Author Organization [facility] [place] [address] Care Team Providers Care Gun Mechanic Name Role Phone None Primary Care Provider Unavailabl e Encounter Details Date Type Department Care Team (Late st Contact Info) Description 12/24/2022 Telephone [place] [address] Dionne June Social History Tobacco Use Types Packs/Day Years Used Date Smoking Tobacco: Former Cigarettes Q uit: 08/29/2012 Smokeless Tobacco: Never Alcohol Use Standard Drinks/Week Comments Yes 0 (1 standard drink = 0.6 oz pur e alcohol) 5-8 beers/week Sex and Gender Information Value Date Recorded Sex Assigned at Female 01/20/2021 12:59 PM EDT Gender Identity Female 01/20/2021 12:59 PM EDT Sexual Orientation Straight 01/20/2021 12 :59 PM EDT documented as of this encounter Plan of Treatment Scheduled Procedures Name Priority Associated Diagnoses Date/Ti me COLONOSCOPY, DIAGNOSTIC (WRV U 3.26) Crohn's disease of small intestine with other complication documented as of this encounter Visit Diagnoses Not on filedocumented in this encounter Care Teams Gun Mechanic Relationship Specialty Start Date End Date None None PCP - General 09/08/21 documented as of this encounter
--- OUTSIDE RECORDS SUMMARY | 2023-10-14 01:03 | XMS_ITS | Encounter Summary ---
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 Name Role Phone None Primary Care Provider Unavailabl e Reason for Visit * Auth/Cert (Routine) Specialty Diagnoses / Procedures Referred By Shalini t Referred To Contact Diagnoses Intramural and subserous leiomyoma of uterus INTRAMURAL AND SUBSEROUS LEIOMYOMA OF UTERUS Procedures PRO VASCULAR EMBOLIZATION OR OCCLUSION ORGAN TUMOR INFARCT ARTERIOGRAMS Keenan Hernandez, [facility] [place] [address] [facility] Referral ID Status Reason Start Date Expiration Date Visits Re quested Visits Authorized [id number] 1 1 Encounter Details Date Type Department Care Team (Latest Contact Info) Description 09/14/2022 1:54 PM EDT - 09/15/2022 11:02 AM EDT Hospital Encounter [place] [address] Keenan Hernandez DO [facility] [place] [address] Ernie Gregorio MD [facility] [address] Discharge Disposition: Home Social History Tobacco Use Types Packs/Day Years [...] PM EDT documented as of this encounter Last Filed Vital Signs Vital Sign Reading Time Taken Comments Blood Pressure 143/80 09/15/2022 7:24 AM EDT Pulse - - Temperature 37.3 ??C (99.1 ??F) 09/15/2022 7:24 AM ED T Respiratory Rate 16 09/15/2022 7:24 AM EDT Oxygen Saturation 97% 09/15/2022 7:24 AM EDT Inhaled Oxygen Concentration - - Weight - - Height - - Body Mass Index - - documented in this encounter Discharge Instructions * Patient Instructions* Damaris Escobar PA - 09/15/2022 9:43 AM EDT Please take the following medications as instructed: Doxycycline 100 mg- one pill twice a day. Be sure to take this with food as it may cause upset stomach, nausea and /or gas. This medication is to be taken for 5 days. Naproxen 500 mg- one pill every 12 hours around the clock for 2-3 days. Be sure to take this medication with food. After 2-3 days, you make take this medication as needed. Percocet 5/325mg 1-2 pills every 3-4 hours as needed for pain. Docusate Sodium 100 mg- one pill twice a day as needed for constipation. If your stools become loose, decrease to one pill a day or stop all together. You will only need to take this medication whiletaking Percocet, as it can be very constipating. Primary Reason for Hospitalization: Observation and pain control following uterine artery embolization. Primary Care Physician: None Special Instructions Driving: You have been given sedative and/or narcotic medicines and should not drive, sign legal documents or attempt any activity which require normal levels of alertness and coordination while taking the narcotics. You may resume these activities if you are not taking the narcotics. Shower/Bath: Showering is permitted 24 hours after the procedure, tub baths and whirlpools should be avoided for 72 hours. Activity Level: Avoid any heavy lifting for at least one week. Diet: Resume normal diet as soon as tolerated. Continue to drink plenty of fluids, and include fresh fruits and vegetables, and whole grains to help with constipation. Return to Work: You may return to work whenever you are able to tolerate it. Activity: Active sports activity should be avoided for at least one week. Sexual Activity: Sexual activity is permitted whenever comfortable. It is ok to wear tampons. Wound Care: Significant bruising may occur at the needle entry site and if present it will resolve in about a week. If it becomes reddened, sore, swollen or begins to drain, call us immediately. Please call us if you develop: Persistent and severe nausea, vomiting or abdominal pain Fever (greater than 101??F) and/or chills Vaginal discharge that has a foul smell or is a color other then red or brown. Difficulty with urination or bowel movements. FOLLOW-UP Appointments: We will call you on next week to see how you are feeling. We will schedule an appointment for you in the clinic in two months with Dr. Hernandez. If you do not hear from us in the next few weeks, please call our appointment laboratory secretary at [phone]. Our Phone Numbers: Interventional Radiology: [phone] After regular office hours, weekends or holidays, please call the [facility] main number at [phone],and ask for the doctor correspondence school instructor for Dr. Hernandez. documented in this encounter Medications at Time of Discharge Medication Sig Dispensed Refills Start Date End Date oxyCODONE (Roxicodone) 5 mg tablet Take 1 tablet by mouth every 4 hours as needed for Pain. 12 tablet 09/15/2022 multivitamin (THERAGRAN) Tablet Take 1 tablet by mouth daily. ergocalciferol, vitamin D2, (VITAMIN D ORAL) every 24 hours. documented as of this encounter Progress Notes * Carmen Wallis RN - 09/15/2022 10:28 AM EDT [facility] Short Stay Unit Discharge Note All relevant discharge milestones have been met by the patent. After Visit Summary and discharge teaching reviewed with the patient. IV access has been discontinued. All personal belongings have been returned to the patient/family upon their departure from the unit. Patient has been discharged to home The patient has been discharged without VNA services. * Damaris Escobar PA - 09/15/2022 9:44 AM EDT Inpatient - Discharge Summary Patient Name: Wilfredo Niño Patient Age: 37 y.o. Birthdate: 1985 Admit date: 09/14/2022 Discharge date and time: 09/15/2022 Attending Physician: Keenan Hernandez DO Code Status: Full Code ID: Wilfredo Niño is a 37 y.o. female w/ PMH of menorrhagia in the setting of a fibroid uterus admitted for observation and pain management status post bilateral uterine artery embolization. Past medical history is significant for Crohn's disease diagnosed a few years ago where she was also diagnosed with fibroids on a staging enterography. Follow-up Recommendations for Providers: N/A *PENDING LABS: none Discharge Diagnoses (Hospital Problems) and Secondary Diagnoses (Chronic Problems): Active Hospital Problems Diagnosis Fibroid uterus Resolved Hospital Problems No resolved problems to display. Active Non-Hospital Problems Diagnosis Dermatitis Photosensitive, 6-MP Abnormal LFTs Iron deficiency anemia due to chronic blood loss Likely 2/2 to uterine bleeding, fibroids Fibroids Abnormal uterine bleeding (AUB) Crohn's disease of perianal region with complication Crohn's disease of small intestine with other complication Chronic anal fissure Procedures: Bilateral uterine artery embolization History of Presentation (per 09/14/2022 Admission H&P): Wilfredo Niño is a 36 y.o. female presenting to IR for consultation at the request of Dr. Hardy regarding treatment options for menorrhagia in the setting of a fibroid uterus. Past medical history issignificant for Crohn's disease diagnosed a few years ago where she was also diagnosed with fibroids on a staging enterography. She reports periods have always been heavy but worse the last few years. First few days bleeds through an overnight pad in an hour. Changes multiple times per night. Has been taking iron pills because she is anemic. Hasn't tried anything for the bleeding. Is considering future but not sure (realisitc that I am 36 and that it may not be in the cards for me).Not planning in the next 6 months, but maybe in the future. Doesn't want a hysterectomy. Wants least surgery possible. Also doesn't want to take anymore medications because she is already on medications for crohn's. Also reports urinary frequency and constipation. No pain in the back or thighs. Hospital Course: Wilfredo Niño was admitted for observation to the Interventional Radiology Service on 09/14/2022 in stable condition following an uneventful bilateral uterine artery embolization under moderate sedation. The patient had an uneventful recovery and was subsequently transferred to the Short Stay Unit for overnight observation, monitoring for postprocedural complication and pain control. The patient had an uneventful overnight course. The barber catheter was removed and a voiding trial was passed. The patient tolerating meals, ambulating and not requiring IV analgesics for pain control. Important Studies and Lab Data: Labs: No results for input(s): WBC, HGB, HCT, PLATELET in the last 168 hours. No results for input(s): NA, K, CL, CO2, BUN, CREATININE, MAGNESIUM, PHOS in the last 168 hours. Invalid input(s): CALCIUM No results for input(s): BILITOT, BILIDIR, AST, ALT, ALKPHOS in the last 168 hours. No results for input(s): INR, PTT in the last 168 hours. Microbiology: N/A Pertinent radiology/diagnostic studies: No diagnostic studies. See RFA procedure note above for details on image guided intervention. Discharge Conditions/Prognosis: Upon discharge the pt is hemodynamically stable, fully ambulatory without requiring supplemental oxygen, afebrile and pain controlled with stable oral regimen. Discharge to: home without services Discharge Medications: Your Medications Continued medications, unchanged Dose Details multivitamin Tablet Commonly known as: THERAGRAN Take 1 tablet by mouth daily. 1 tablet Refills: 0 VITAMIN D ORAL every 24 hours. Refills: 0 Updated Allergies/ADRs: No Known Allergies Instructions Given to Patient at Discharge: Patient Instructions Please take the following medications as instructed: Doxycycline 100 mg- one pill twice a day. Be sure to take this with food as it may cause upset stomach, nausea and /or gas. This medication is to be taken for 5 days. Naproxen 500 mg- one pill every 12 hours around the clock for 2-3 days. Be sure to take this medication with food. After 2-3 days, you make take this medication as needed. Percocet 5/325mg 1-2 pills every 3-4 hours as needed for pain. Docusate Sodium 100 mg- one pill twice a day as needed for constipation. If your stools become loose, decrease to one pill a day or stop all together. You will only need to take this medication whiletaking Percocet, as it can be very constipating. Primary Reason for Hospitalization: Observation and pain control following uterine artery embolization. Primary Care Physician: None Special Instructions Driving: You have been given sedative and/or narcotic medicines and should not drive, sign legal documents or attempt any activity which require normal levels of alertness and coordination while taking the narcotics. You may resume these activities if you are not taking the narcotics. Shower/Bath: Showering is permitted 24 hours after the procedure, tub baths and whirlpools should be avoided for 72 hours. Activity Level: Avoid any heavy lifting for at least one week. Diet: Resume normal diet as soon as tolerated. Continue to drink plenty of fluids, and include fresh fruits and vegetables, and whole grains to help with constipation. Return to Work: You may return to work whenever you are able to tolerate it. Activity: Active sports activity should be avoided for at least one week. Sexual Activity: Sexual activity is permitted whenever comfortable. It is ok to wear tampons. Wound Care: Significant bruising may occur at the needle entry site and if present it will resolve in about a week. If it becomes reddened, sore, swollen or begins to drain, call us immediately. Please call us if you develop: Persistent and severe nausea, vomiting or abdominal pain Fever (greater than 101??F) and/or chills Vaginal discharge that has a foul smell or is a color other then red or brown. Difficulty with urination or bowel movements. FOLLOW-UP Appointments: We will call you on next week to see how you are feeling. We will schedule an appointment for you in the clinic in two months with Dr. Hernandez. If you do not hear from us in the next few weeks, please call our appointment laboratory secretary at [phone]. Our Phone Numbers: Interventional Radiology: [phone] After regular office hours, weekends or holidays, please call the [facility] main number at [phone],and ask for the doctor correspondence school instructor for Dr. Hernandez. General Instructions None Provider Contact Information: None None Phone: None Fax: None Discharge References/Attachments: Discharge References/Attachments None documented in this encounter Plan of Treatment Scheduled Procedures Name Priority Associated Diagnoses Date/Ti mi COLONOSCOPY, DIAGNOSTIC (WRV U 3.26) Crohn's disease of small intestine with other complication documented as of this encounter Visit Diagnoses Diagnosis Fibroid uterus- Primary Leiomyoma of uterus, unspecified documented in this encounter Admitting Diagnoses Diagnosis Fibroid uterus Leiomyoma of uterus, unspecified documented in this encounter Administered Medications Inactive Administered Medications - up to 3 most recent administrations Medication Order MAR Action Action Date Dose Rate Site doxycycline monohydrate (Monodox) capsule 100 mg 100 mg, Oral, 2 TIMES DAILY, First dose on Wed09/15/22 at 0800, Until Discontinued, Recovery (Recovery-Hospital Unit), Routine, Indication for (Active or Suspected): Prophylaxis Given 09/15/2022 8:13 AM EDT 100 mg HYDROmorphone (Dilaudid) (1 mg/mL) in sodium chloride 0.9% 50 mL BURRER MACHINE infusion syringe Intravenous, BURRER MACHINE ONLY, Starting on Wed09/14/22 at 1445, Until Wed09/15/22 at 1302, Recovery (Recovery-Hospital Unit) Rate/Dose Verify 09/14/2022 2:45 PM EDT ketorolac (Toradol) (15 mg/mL) injection 15 mg 15 mg, Intravenous, EVERY 6 HOURS PRN, Starting on Wed09/14/22 at 1355, Until Wed09/15/22 at 1302, Pain, MODERATE pain (4-6), Avoid if CrCl less than 50 mL/min. Do not administer with other NSAIDS For pain not relieved by oral analgesics or in patients unable to take oral analgesics., Recovery (Recovery-Hospital Unit), Routine ketorolac (Toradol) (15 mg/mL) injection 15 mg 15 mg, Intramuscular, EVERY 6 HOURS PRN, Starting on Wed09/14/22 at 1355, Until Wed09/15/22 at 1302, Pain, MODERATE Pain (4-6), Avoid if CrCl less than 50 mL/min. Do not administer with other NSAIDS. For pain not relieved by oral analgesics or in patients unable to take oral analgesics., Recovery (Recovery-Hospital Unit), Routine Given 09/14/2022 10:55 PM EDT 15 mg ondansetron (pf) (Zofran) (2 mg/mL) injection 4-8 mg 4-8 mg, Intravenous, EVERY 8 HOURS PRN, Starting on Wed09/14/22 at 1355, Until Wed09/15/22 at 1302, Nausea, Start with 4mg and if ineffective in 30 minutes, give an additional 4mg If multiple antiemetics are ordered, give ondansetron first., Recovery (Recovery-Hospital Unit) Given 09/14/2022 10:56 PM EDT 4 mg ondansetron (Zofran) tablet 4-8 mg 4-8 mg, Oral, EVERY 8 HOURS PRN, Starting on Wed09/14/22 at 1355, Until Wed09/15/22 at 1302, Nausea, Vomiting, If multiple antiemetics are ordered, use ondansetron first. PO Preferred. If patient unable to take PO, may give IV if ordered. Start with 4mg and if ineffective in 45 minutes, give an additional 4mg. If unable to take PO, may give IV., Recovery (Recovery-Hospital Unit), Routine oxyCODONE (Roxicodone) tablet 10-15 mg 10-15 mg, Oral, EVERY 4 HOURS PRN, Starting on Wed09/15/22 at 0812, Until Wed09/15/22 at 1302, Pain, severe pain (7-10), Initial dose 10mg. If pain control not adequate in 60 minutes, give additional 5mg., Routine Given 09/15/2022 8:32 AM EDT 10 mg oxyCODONE (Roxicodone) tablet 5-10 mg 5-10 mg, Oral, EVERY 4 HOURS PRN, Starting on Wed09/15/22 at 0812, Until Wed09/15/22 at 1302, Pain, moderate pain (4-6), Initial dose 5mg. If pain control not adequate in 60 minutes, give additional 5mg., Routine prochlorperazine (Compazine) (5 mg/mL) injection 10 mg 10 mg, Intravenous, EVERY 6 HOURS PRN, Starting on Wed09/14/22 at 1355, Until Wed09/15/22 at 1302, Nausea, Nausea/Vomiting, If multiple antiemetics are ordered, use ondansetron first. If ondansetron ineffective use prochlorperazine. Only give IV if unable to take PO, Recovery (Recovery-Hospital Unit), Routine prochlorperazine (Compazine) tablet 10 mg 10 mg, Oral, EVERY 6 HOURS PRN, Starting on Wed09/14/22 at 1355, Until Wed09/15/22 at 1302, Nausea, Nausea/Vomiting, If multiple antiemetics are ordered, use ondansetron first. If ondansetron ineffective use prochlorperazine. PO Preferred. If patient unable to take PO, may give IV if ordered., Recovery (Recovery-Hospital Unit), Routine sodium chloride 0.9 % (flush) (BD PosiFlush Normal Saline 0.9) flush 5 mL 5 mL, Intravenous, 2 TIMES DAILY, First dose on Wed09/14/22 at 1445, Until Discontinued, Recovery (Recovery-Hospital Unit), Routine Given 09/15/2022 8:14 AM EDT 5 mLs sodium chloride 0.9% infusion 1,000 mL, at 100 mL/hr, Intravenous, CONTINUOUS, Starting on Wed09/14/22 at 1445, Until Wed09/15/22 at 1302, Recovery (Recovery-Hospital Unit) Continued Bag 09/14/2022 2:45 PM EDT 1,000 mLs 100 mL/hr documented in this encounter Active and Recently Administered Medications Times are shown in EDT. Scheduled Medication Order 09/13/2022 09/14/2022 09/15/2022 doxycycline monohydrate (Monodox) capsule 100 mg 100 mg, Oral, 2 TIMES DAILY, First dose on Wed09/15/22 at 0800, Until Discontinued, Recovery (Recovery-Hospital Unit), Routine, Indication for (Active or Suspected): Prophylaxis 0813 (Given - Provid er: Carmen Wallis RN) BURRER MACHINE Shift Total Intravenous, 2 Times Daily- BURRER MACHINE Shift Total, First dose on Wed09/14/22 at 1800, Until Discontinued, Recovery (Recovery-Hospital Unit) 1800 (Verified - Provider: Carmen Wallis RN) 0600 (Verified - Provider: Kristy López RN) polyethylene glycoL (Miralax) packet 17 g 17 g, Oral, DAILY, First dose on Wed09/15/22 at 0900, Until Discontinued, Administer if no bowel movement within 48 hours to achieve: (1) One bowel movement at least every 48 hours, AND (2) without straining. If multiple PRN bowel medications ordered, start with polyethylene glycoL, then lactulose, then oral bisacodyL, then bisacodyL suppository, then magnesium citrate, then tap water enema. Multiple medications may be given concomitantly for constipation., Recovery (Recovery-Hospital Unit), Routine 0900 (Not Given - Provider: Carmen Wallis RN - Reason: See comment) sodium chloride 0.9 % (flush) (BD PosiFlush Normal Saline 0.9) flush 5 mL 5 mL, Intravenous, 2 TIMES DAILY, First dose on Wed09/14/22 at 1445, Until Discontinued, Recovery (Recovery-Hospital Unit), Routine 1445 (Not Given - Provider: Carmen Wallis RN - Reason: See comment)2100 (Not Given - Provider: Kristy López RN - Reason: Medication not available) 0814 (Given - Provider: Carmen Wallis RN) Continuous Medication Order 09/13/2022 09/14/2022 09/15/2022 HYDROmorphone (Dilaudid) (1 mg/mL) in sodium chloride 0.9% 50 mL BURRER MACHINE infusion syringe Intravenous, BURRER MACHINE ONLY, Starting on Wed09/14/22 at 1445, Until Wed09/15/22 at 1302, Recovery (Recovery-Hospital Unit) 1445 (Rate/Dose Verify - Provider: Carmen Wallis RN) 1302 (Due: Stopped) sodium chloride 0.9% infusion 1,000 mL, at 100 mL/hr, Intravenous, CONTINUOUS, Starting on Wed09/14/22 at 1445, Until Wed09/15/22 at 1302, Recovery (Recovery-Hospital Unit) 1445 (Continued Bag - Provider: Carmen Wallis RN) 1302 (Due: Stopped) PRN Medication Order 09/13/2022 09/14/2022 09/15/2022 acetaminophen (Tylenol) tablet 1,000 mg 1,000 mg, Oral, EVERY 6 HOURS PRN, Starting on Wed09/14/22 at 1355, Until Wed09/15/22 at 1302, Pain, for MILD pain (1-3), Maximum dose of acetaminophen is 4,000 mg from all sources in 24 hours. When ordered for pain, acetaminophen should be given even when other ordered pain medications are indicated. , Recovery (Recovery-Hospital Unit), Routine calcium carbonate (TUMS) chewable tablet 500-1,000 mg 500-1,000 mg, Oral, EVERY 4 HOURS PRN, Starting on Wed09/14/22 at 1355, Until Wed09/15/22 at 1302, Heartburn, Give 500 mg (1 tablet) for mild to moderate heartburn. Give 1,000 mg (2 tablets) for severe heartburn., Recovery (Recovery-Hospital Unit), Routine diphenhydrAMINE (Benadryl) (50 mg/mL) injection 25 mg 25 mg, Intravenous, EVERY 30 MIN PRN, 2 doses, Starting on Wed09/14/22 at 1355, Until Wed09/15/22 at 1302, Itching, Per BURRER MACHINE order., Recovery (Recovery-Hospital Unit), Routine ketorolac (Toradol) (15 mg/mL) injection 15 mg(Linked Group 1) 15 mg, Intravenous, EVERY 6 HOURS PRN, Starting on Wed09/14/22 at 1355, Until Wed09/15/22 at 1302, Pain, MODERATE pain (4-6), Avoid if CrCl less than 50 mL/min. Do not administer with other NSAIDS For pain not relieved by oral analgesics or in patients unable to take oral analgesics., Recovery (Recovery-Hospital Unit), Routine 2255 (See Alternative - Provider: Kristy López RN) ketorolac (Toradol) (15 mg/mL) injection 15 mg(Linked Group 1) 15 mg, Intramuscular, EVERY 6 HOURS PRN, Starting on Wed09/14/22 at 1355, Until Wed09/15/22 at 1302, Pain, MODERATE Pain (4-6), Avoid if CrCl less than 50 mL/min. Do not administer with other NSAIDS. For pain not relieved by oral analgesics or in patients unable to take oral analgesics., Recovery (Recovery-Hospital Unit), Routine 2254 (Given - Provider: Kristy López RN) lidocaine (Xylocaine) 1% (10 mg/mL) injection 3 mg 3 mg (0.3 mL), Subcutaneous, ONCE PRN, 1 dose, Starting on Wed09/14/22 at 1355, Until Wed09/15/22 at 1302, for discomfort with PIV insertion, Recovery (Recovery-Hospital Unit), Routine melatonin tablet 6 mg 6 mg, Oral, NIGHTLY PRN, Starting on Wed09/14/22 at 1355, Until Wed09/15/22 at 1302, As a sleep aid., Recovery (Recovery-Hospital Unit), Routine naloxone (Narcan) (0.4 mg/mL) injection 0.2 mg 0.2 mg, Intravenous, EVERY 1 MIN PRN, Starting on Wed09/14/22 at 1355, Until Wed09/15/22 at 1302, Opioid Reversal, If respiratory rate less than 6 OR the patient is unable to arouse OR SpO2 is declining, Give for respiratory rate of less than or equal to 6 and patient is heavily sedated or unarousable. May repeat every 60 seconds to increase respiratory rate. DO NOT exceed 2 mg total dose., Recovery (Recovery-Hospital Unit), Routine naloxone (Narcan) (0.4 mg/mL) injection 0.2 mg 0.2 mg, Intravenous, EVERY 1 MIN PRN, Starting on Wed09/14/22 at 1355, Until Wed09/15/22 at 1302, Opioid Reversal, May repeat every 60 seconds to increase respiratory rate. DO NOT exceed 2 mg total dose. Per BURRER MACHINE order., Recovery (Recovery-Hospital Unit), Routine ondansetron (pf) (Zofran) (2 mg/mL) injection 4-8 mg(Linked Group 2) 4-8 mg, Intravenous, EVERY 8 HOURS PRN, Starting on Wed09/14/22 at 1355, Until Wed09/15/22 at 1302, Nausea, Start with 4mg and if ineffective in 30 minutes, give an additional 4mg If multiple antiemetics are ordered, give ondansetron first., Recovery (Recovery-Hospital Unit) 2255 (Given - Provider: Kristy López RN) ondansetron (Zofran) tablet 4-8 mg(Linked Group 2) 4-8 mg, Oral, EVERY 8 HOURS PRN, Starting on Wed09/14/22 at 1355, Until Wed09/15/22 at 1302, Nausea, Vomiting, If multiple antiemetics are ordered, use ondansetron first. PO Preferred. If patient unable to take PO, may give IV if ordered. Start with 4mg and if ineffective in 45 minutes, give an additional 4mg. If unable to take PO, may give IV., Recovery (Recovery-Hospital Unit), Routine 2255 (See Alternative - Provider: Kristy López RN) oxyCODONE (Roxicodone) tablet 10-15 mg(Linked Group 3) 10-15 mg, Oral, EVERY 4 HOURS PRN, Starting on Wed09/15/22 at 0812, Until Wed09/15/22 at 1302, Pain, severe pain (7-10), Initial dose 10mg. If pain control not adequate in 60 minutes, give additional 5mg., Routine 831 (Given - Provid er: Kandice Galindo LPN) oxyCODONE (Roxicodone) tablet 5-10 mg(Linked Group 3) 5-10 mg, Oral, EVERY 4 HOURS PRN, Starting on Wed09/15/22 at 0812, Until Wed09/15/22 at 1302, Pain, moderate pain (4-6), Initial dose 5mg. If pain control not adequate in 60 minutes, give additional 5mg., Routine 0832 (See Alternativ e - Provider: Kandice Galindo LPN) BURRER MACHINE mccrary Intravenous, CONTINUOUS PRN, Starting on Wed09/14/22 at 1355, Until Wed09/15/22 at 1302, Needed for nurse BURRER MACHINE pump access., Recovery (Recovery-Hospital Unit) prochlorperazine (Compazine) (5 mg/mL) injection 10 mg(Linked Group 4) 10 mg, Intravenous, EVERY 6 HOURS PRN, Starting on Wed09/14/22 at 1355, Until Wed09/15/22 at 1302, Nausea, Nausea/Vomiting, If multiple antiemetics are ordered, use ondansetron first. If ondansetron ineffective use prochlorperazine. Only give IV if unable to take PO, Recovery (Recovery-Hospital Unit), Routine prochlorperazine (Compazine) (5 mg/mL) injection 5 mg 5 mg, Intravenous, EVERY 30 MIN PRN, 2 doses, Starting on Wed09/14/22 at 1355, Until Wed09/15/22 at 1302, Nausea, May repeat in 30 minutes if no relief from previous dose. HOLD if patient is sedated. Maximum dose is 40 mg in 24 hours. If multiple antiemetics are ordered, use ondansetron first, prochlorperazine second. Per BURRER MACHINE order., Recovery (Recovery[facility]Hospital Unit), Routine prochlorperazine (Compazine) tablet 10 mg(Linked Group 4) 10 mg, Oral, EVERY 6 HOURS PRN, Starting on Wed09/14/22 at 1355, Until Wed09/15/22 at 1302, Nausea, Nausea/Vomiting, If multiple antiemetics are ordered, use ondansetron first. If ondansetron ineffective use prochlorperazine. PO Preferred. If patient unable to take PO, may give IV if ordered., Recovery (Recovery-Hospital Unit), Routine sodium chloride 0.9 % (flush) (BD PosiFlush Normal Saline 0.9) flush 5-20 mL 5-20 mL, Intravenous, EVERY 1 MIN PRN, Starting on Wed09/14/22 at 1355, Until Wed09/15/22 at 1302, flush, Flush pertains to all indwelling lines. Flush per protocol found in the job aid using the link provided on this medication record., Recovery ([facility]ospital Unit), Routine Linked Groups Order Group 1: ketorolac (Toradol) (15 mg/mL) injection 15 mgJump to med 15 mg, Intravenous, EVERY 6 HOURS PRN, Starting on Wed09/14/22 at 1355, Until Wed09/15/22 at 1302, Pain, MODERATE pain (4-6), Avoid if CrCl less than 50 mL/min. Do not administer with other NSAIDS For pain not relieved by oral analgesics or in patients unable to take oral analgesics., Recovery ([facility]ospital Unit), Routine Or ketorolac (Toradol) (15 mg/mL) injection 15 mgJump to med 15 mg, Intramuscular, EVERY 6 HOURS PRN, Starting on Wed09/14/22 at 1355, Until Wed09/15/22 at 1302, Pain, MODERATE Pain (4-6), Avoid if CrCl less than 50 mL/min. Do not administer with other NSAIDS. For pain not relieved by oral analgesics or in patients unable to take oral analgesics., Recovery ([facility]ospital [facility]), Routine Group 2: ondansetron (Zofran) tablet 4-8 mgJump to med 4-8 mg, Oral, EVERY 8 HOURS PRN, Starting on Wed09/14/22 at 1355, Until Wed09/15/22 at 1302, Nausea, Vomiting, If multiple antiemetics are ordered, use ondansetron first. PO Preferred. If patient unable to take PO, may give IV if ordered. Start with 4mg and if ineffective in 45 minutes, give an additional 4mg. If unable to take PO, may give IV., Recovery ([facility]ospital Unit), Routine Or ondansetron (pf) (Zofran) (2 mg/mL) injection 4-8 mgJump to med 4-8 mg, Intravenous, EVERY 8 HOURS PRN, Starting on Wed09/14/22 at 1355, Until Wed09/15/22 at 1302, Nausea, Start with 4mg and if ineffective in 30 minutes, give an additional 4mg If multiple antiemetics are ordered, give ondansetron first., Recovery (Recovery[facility]Hospital Unit) Group 3: oxyCODONE (Roxicodone) tablet 5-10 mgJump to med 5-10 mg, Oral, EVERY 4 HOURS PRN, Starting on Wed09/15/22 at 0812, Until Wed09/15/22 at 1302, Pain, moderate pain (4-6), Initial dose 5mg. If pain control not adequate in 60 minutes, give additional 5mg., Routine Or oxyCODONE (Roxicodone) tablet 10-15 mgJump to med 10-15 mg, Oral, EVERY 4 HOURS PRN, Starting on Wed09/15/22 at 0812, Until Wed09/15/22 at 1302, Pain, severe pain (7-10), Initial dose 10mg. If pain control not adequate in 60 minutes, give additional 5mg., Routine Group 4: prochlorperazine (Compazine) tablet 10 mgJump to med 10 mg, Oral, EVERY 6 HOURS PRN, Starting on Wed09/14/22 at 1355, Until Wed09/15/22 at 1302, Nausea, Nausea/Vomiting, If multiple antiemetics are ordered, use ondansetron first. If ondansetron ineffective use prochlorperazine. PO Preferred. If patient unable to take PO, may give IV if ordered., Recovery (Recovery- Hospital Unit), Routine Or prochlorperazine (Compazine) (5 mg/mL) injection 10 mgJump to med 10 mg, Intravenous, EVERY 6 HOURS PRN, Starting on Wed09/14/22 at 1355, Until Wed09/15/22 at 1302, Nausea, Nausea/Vomiting, If multiple antiemetics are ordered, use ondansetron first. If ondansetron ineffective use prochlorperazine. Only give IV if unable to take PO, Recovery (Recovery[facility]Hospital Unit), Routine documented in this encounter Care Teams Red Hat Linux Engineer Relationship Specialty Start Date End Date None None PCP - General 09/08/21 documented as of this encounter
--- OUTSIDE RECORDS SUMMARY | 2023-10-14 01:03 | XMS_ITS | Encounter Summary ---
Author Organization [facility] Address [address] [place] [address] Care Team Providers Care Recruiting Internship Name Role Phone None, Provider Primary Care Provider Unavailabl e Unknown, Provider MD Unavailable Encounter Details Date Type Department Care Team (Late st Contact Info) Description 06/12/2022 Lab Requisition [facility] Pathology & Laboratory Medicine - [address] [phone] Outr Resulting Lab, Provider Social History Tobacco [...] Procedure Name Priority Date/Time Associated Diagnosis Comments IGA Routine 06/12/2022 8:22 EDT documented in this encounter Results * IGA (06/12/2022 8:22 EDT) IgA 245 85 - 499 mg/dL 06/15/2022 10:13 EDT [facility] Blood VENOUS BLOOD / Unknown 06/12/2022 8:22 EDT 06/12/2022 18:43 EDT Provider Outr Resulting Lab CHEMISTRY & BLOOD GAS ORDERABLES [facility] [address] [place] [address] documented in this encounter Visit Diagnoses Not on filedocumented in this encounter Care Teams Recruiting Internship Relationship Specialty Start Date End Date None, Provider PCP - General 09/20/19 Unknown, Provider, 09/20/19 documented as of this encounter
--- OUTSIDE RECORDS SUMMARY | 2023-10-14 01:03 | XMS_ITS | Encounter Summary ---
Author Organization [facility] [place] [address] Care Team Providers Care Fiber Machine Tender Name Role Phone None Primary Care Provider Unavailabl e Encounter Details Date Type Department Care Team (Late st Contact Info) Description 08/06/2022 Telephone [place] [phone] Irene Landis RN Social History Tobacco Use Types Packs/Day Years [...] PM EDT documented as of this encounter Miscellaneous Notes * Telephone Encounter - Irene Landis RN - 08/07/2022 2:14 PM EDT The following communicated to Wilfredo via portal and asked her to keep us posted on what she decides. I understand her concerns and need for this procedure for her fibroids to go well. I certainly wantus all to be on the same page. I think the main thing to be concerned about is the risk of infection, but she will be covered with antibiotics. There is a very good study of nearly 1000 patients on medications like Remicade that looked at the risk of post-operative infections following abdominal surgeries. This is called the YVROSE study (https://www.gastrojournal.org/article/Z9749-9738(79)69108-6/fulltext). This found NO increased risk of infections in people on medications like Remicade leading up to intra-abdominal surgery. While different from an embolization, these are major intra-abdominal surgeries and I think this is very reassuring data. It would be very helpful to have input from interventional radiology and/or OB and I would encourage her to reach out to them. I will send them a note. Some procedures can be done without holding infusions at all, and instead timing it so that the procedure is done when the medication level is at a lower point (such as 6 weeks after a dose). If infusions are held that's not unreasonable either but it's really important to minimize disruptions in treatment that could lead to worsening symptoms or antibodies. Usually at most it would be 4-6 weeks (an extra 2 weeks before/2 weeks after sort of thing). If she can pin down a date that would be helpful. * Telephone Encounter - Irene Landis RN - 08/06/2022 11:27 AM EDT Received VM from [facility] infusion that Wilfredo is due for her infusion tomorrow and she cancelled this and said she is not rescheduling infusions until she talks with her doctors. TC to Wilfredo she states that she has been working with many providers and currently is getting set up to have an UAE for large uterine fibroids with our IR next month (not scheduled yet) She states that she has to get labs and testing done with [facility] as there is a risk for early menopause for this. Additionally she has not heard from [facility] and left a VM a few days ago regarding appointment/evaluation. D/W Wilfredo that it would be better for her to get her infusion now, since her procedure is not scheduled and we could d/w Dr. May for post infusion instructions related to her healing. Wilfredo feels that being on Remicade every scrape feels hard to heal and she does not want to have complications following this due to her infusions. Reviewed concerns that delaying places her at higher risk of antibody development. Wilfredo states she has a lot going on between her uterus and her crohns and many different providers that she currently wants to get through dealing with the fibroid issue. Will d/w Dr. May. documented in this encounter Plan of Treatment Scheduled Procedures Name Priority Associated Diagnoses Date/Ti me COLONOSCOPY, DIAGNOSTIC (WRV U 3.26) Crohn's disease of small intestine with other complication documented as of this encounter Visit Diagnoses Not on filedocumented in this encounter Care Teams Fiber Machine Tender Relationship Specialty Start Date End Date None None PCP - General 09/08/21 documented as of this encounter
--- OUTSIDE RECORDS SUMMARY | 2023-10-14 01:03 | XMS_ITS | Encounter Summary ---
Author Organization [facility] Address [address] [place] [address] Care Team Providers Care Survey Technician Name Role Phone None, Provider Primary Care Provider Unavailabl e Unknown, Provider MD Unavailable Encounter Details Date Type Department Care Team (Late st Contact Info) Description 06/13/2022 Lab Requisition [facility] Pathology & Laboratory Medicine - [address] [phone] Outr Resulting Lab, Provider Social History Tobacco [...] Procedure Name Priority Date/Time Associated Diagnosis Comments QUANTIFERON MITOGEN (PERFORMABLE) Today 06/12/2022 8:22 EDT QUANTIFERON TB2 (PERFORMABLE) Today 06/12/2022 8:22 EDT QUANTIFERON TB1 (PERFORMABLE) Today 06/12/2022 8:22 EDT QUANTIFERON NIL (PERFORMABLE) Today 06/12/2022 8:22 EDT QUANTIFERON INTERPRETATION (PERFORMABLE) Today 06/12/2022 8:22 EDT QUANTIFERON TB GOLD PLUS Routine 06/12/2022 8:22 EDT documented in this encounter Results * QUANTIFERON INTERPRETATION (PERFORMABLE) (06/12/2022 8:22 EDT) Quantiferon Interpretation Negative Negative 06/15/2022 14:03 EDT [facility] Comment:No interferon-gamma response to M. tuberculosis antigens was detected. ??Infection with M. tuberculosis is unlikely. A single negative result does not exclude infection with M. tuberculosis. ??In patients at high risk for M. tuberculosis infection, a second test should be considered. TB1 Ag minus Nil 0.01 IU/ml 06/16/19 14:03 EDT [facility] TB2 Ag minus Nil 0.01 IU/mL 06/16/19 14:03 EDT [facility] Blood VENOUS BLOOD / Unknown 06/12/2022 8:22 EDT 06/15/2022 13:32 EDT Narrative [facility] - 06/15/2022 14:03 EDT Results were obtained with the [employer] QuantiFERON-TB Gold Plus CLIA. New platform in use 11/27/2020 Provider Outr Resulting Lab IMMUNOLOGY A ND SEROLOGY ORDERABLES Performing Organization Address City/[facility] Co de Phone Number [facility] [address] [place] [address] * QUANTIFERON MITOGEN (PERFORMABLE) (06/12/2022 8:22 EDT) Blood VENOUS BLOOD / Unknown 06/12/2022 8:22 EDT 06/13/2022 22:06 EDT Provider Outr Resulting Lab IMMUNOLOGY A ND SEROLOGY ORDERABLES Performing Organization Address City/[facility]/ZIP Co de Phone Number [facility] [address] [place] [address] * QUANTIFERON TB2 (PERFORMABLE) (06/12/2022 8:22 EDT) Blood VENOUS BLOOD / Unknown 06/12/2022 8:22 EDT 06/13/2022 22:06 EDT Provider Outr Resulting Lab IMMUNOLOGY A ND SEROLOGY ORDERABLES Performing Organization Address City/[facility]/ZIP Co de Phone Number [facility] [address] [place] [address] * QUANTIFERON TB1 (PERFORMABLE) (06/12/2022 8:22 EDT) Blood VENOUS BLOOD / Unknown 06/12/2022 8:22 EDT 06/13/2022 22:06 EDT Provider Outr Resulting Lab IMMUNOLOGY A ND SEROLOGY ORDERABLES Performing Organization Address [facility] de Phone Number [facility] [address] [place] [address] * QUANTIFERON NIL (PERFORMABLE) (06/12/2022 8:22 EDT) Blood VENOUS BLOOD / Unknown 06/12/2022 8:22 EDT 06/13/2022 22:06 EDT Provider Outr Resulting Lab IMMUNOLOGY A ND SEROLOGY ORDERABLES Performing Organization Address [facility] Co de Phone Number [facility] [address] [place] [address] documented in this encounter Visit Diagnoses Not on filedocumented in this encounter Care Teams Survey Technician Relationship Specialty Start Date End Date None, Provider PCP - General 09/20/19 Unknown, Provider, 09/20/19 documented as of this encounter
--- OUTSIDE RECORDS SUMMARY | 2023-10-14 01:03 | XMS_ITS | Encounter Summary ---
Author Organization [facility] Address [address] [place] [address] Care Team Providers Care Sign Carpenter Name Role Phone None, Provider Primary Care Provider Unavailabl e Unknown, Provider MD Unavailable Encounter Details Date Type Department Care Team (Late st Contact Info) Description 10/04/2019 Lab Requisition [facility] Pathology & Laboratory Medicine - [address] [phone] Topher Valentin, [address] [place], [place] [id number] Neoplasm of unspecified behavior of bone, soft tissue, and skin Social History Tobacco Use Types Packs/Day Years Used Date Smoking Tobacco: Never Assessed Sex and Gender Information Value Date Recorded Sex Assigned at Not on file Gender Identity Not on file Sexual Orientation Not on file documented as of this encounter Plan of Treatment Not on file documented as of this encounter Procedures Procedure Name Priority Date/Time Associated Diagnosis Comments SURGICAL PATHOLOGY Today 10/03/2019 10 :00 EDT Neoplasm of unspecified behavior of bone, soft tissue, and skin documented in this encounter Results * SURGICAL PATHOLOGY (10/03/2019 10:00 EDT) Final Diagnosis A. SKIN OF LIP, RIGHT LOWER, SHAVE BIOPSY: - Melanocytic nevus, intradermal type. 10/05/2019 9:[address] [facility] at 0950 Attestation By the signature below, the attending physician certifies that they have 1) personally conducted a gross and/or microscopic examination of the described specimen(s), and/or personally interpreted the results of laboratory testing of the described specimen(s), and 2) personally rendered or confirmed the above diagnosis. 10/05/2019 9:[address] [facility] at 0950 Microscopic Description Sections are of a papule with mild epidermal hyperplasia and hyperkeratosis. There is a proliferation of melanocytes within the dermis. The proliferation consists of nests, cords, and strands that diminish in size with descent into the dermis. The melanocytes are slightly enlarged but generally have round-oval nuclei and a moderate amount of cytoplasm. The melanocytes show regional branch manager maturation. 10/05/2019 9:[address] [facility] Clinical History Nevus 10/05/2019 9:[address] [facility] Gross Description A. Received in formalin labelled with proper patient identification (initials T, S) and right lower lip is a dome-shaped shave biopsy of dark brown rubbery skin (0.4 x 0.3 x 0.2 cm). The margin is inked blue. The tissue is bisected and entirely submitted in A1. Yi Denzer 10/04/2019 16:12 10/05/2019 9:[address] [facility] Scanned Images 10/05/2019 9:[address] [facility] Tissue ENTIRE LIP / Unknown 10/03/2019 10:00 EDT 10/04/2019 15:59 EDT Topher Valentin DO PATHOLOGY ORDER SAMREEN [facility] [address] [place] [address] documented in this encounter Visit Diagnoses Diagnosis Neoplasm of unspecified behavior of bone, soft tissue, and skin documented in this encounter Care Teams Sign Carpenter Relationship Specialty Start Date End Date None, Provider PCP - General 09/20/19 Unknown, Provider, 09/20/19 documented as of this encounter
--- OUTSIDE RECORDS SUMMARY | 2023-10-14 01:03 | XMS_ITS | Clinical Summary ---
Author Organization [facility] Address [address] [place] [address] Care Team Providers Care General I Farmworker Name Role Phone None, Provider Primary Care [...] Orientation Not on file Plan of Treatment Health Maintenance Due Date Last Done Comments Hepatitis B Vaccine (1 of 3 - 19+ 3-dose series) 05/04 COVID-19 Vaccine ( season) 2022 Hepatitis C Screen Completed 01/23/2021 Procedures Procedure Name Priority Date/Time Associated Diagnosis Comments HEPATITIS C AB W REFLEX TO HCV RNA BY PCR Routine 01/23/2021 7:48 EDT from Last 3 Months or Most Recently Relevant to Health Maintenance Results * HEPATITIS C AB W REFLEX TO HCV RNA BY PCR (01/23/2021 7:48 EDT) Hep C Antibody Negative Negative 01/25/2021 10:[address] [facility] Blood VENOUS BLOOD / Unknown 01/23/2021 7:48 EDT 01/23/2021 16:28 EDT Provider Outr Resulting Lab CHEMISTRY & BLOOD GAS ORDERABLES [facility] [address] [place] [address] from Last 3 Months or Most Recently Relevant to Health Maintenance Care Teams General I Farmworker Relationship Specialty Start Date End Date None, Provider PCP - General 09/20/19 Unknown, Provider, 09/20/19
--- OUTSIDE RECORDS SUMMARY | 2023-10-14 01:03 | XMS_ITS | Encounter Summary ---
Author Organization [facility] Address [address] [place] [address] Care Team Providers Care Potato Chip Maker Name Role Phone None, Provider Primary Care Provider Unavailabl e Unknown, Provider MD Unavailable Encounter Details Date Type Department Care Team (Late st Contact Info) Description 01/23/2021 Lab Requisition [facility] Pathology & Laboratory Medicine - [address] [phone] Outr Resulting Lab, Provider Social History Tobacco [...] RNA BY PCR Routine 01/23/2021 7:48 EDT HEPATITIS B SURFACE ANTIBODY Routine 01/23/2021 7:48 EDT HEPATITIS B SURFACE ANTIGEN Routine 01/23/2021 7:48 EDT documented in this encounter Results * HEPATITIS B SURFACE ANTIBODY (01/23/2021 7:48 EDT) Hep B Surface Ab, Quantitative 3.5 See Note mIU/mL 01/25/2021 9:50 EDT [facility] Comment: Reference Range for Hep B Surface Ab, Quant: Positive: >= 10.0 mIU/mL Negative: ??< 10.0 mIU/mL Patient is presumed to not be immune to infection with Hepatitis B Virus. Hep B Surface Ab, Qualitative Negative See Note 01/25/2021 9:50 EDT [facility] Comment: Reference Range for Hep B Surface Ab, Qual: Unvaccinated: ??Negative Vaccinated: ??Positive Blood VENOUS BLOOD / Unknown 01/23/2021 7:48 EDT 01/23/2021 16:28 EDT Provider Outr Resulting Lab CHEMISTRY & BLOOD GAS ORDERABLES [facility] [address] [place] [address] * HEPATITIS B SURFACE ANTIGEN (01/23/2021 7:48 EDT) Hep B Surface Ag Negative Negative 01/25/2021 10:11 EDT [facility] Blood VENOUS BLOOD / Unknown 01/23/2021 7:48 EDT 01/23/2021 16:28 EDT Provider Outr Resulting Lab CHEMISTRY & BLOOD GAS ORDERABLES Performing Organization Address City/[facility]/ZIP Co de Phone Number [facility] [address] [place] [id number] * HEPATITIS C AB W REFLEX TO HCV RNA BY PCR (01/23/2021 7:48 EDT) Hep C Antibody Negative Negative 01/25/2021 10:58 EDT [facility] Blood VENOUS BLOOD / Unknown 01/23/2021 7:48 EDT 01/23/2021 16:28 EDT Provider Outr Resulting Lab CHEMISTRY & BLOOD GAS ORDERABLES Performing Organization Address City/[facility]/ZIP Co de Phone Number [facility] [address] [place] [address] documented in this encounter Visit Diagnoses Not on filedocumented in this encounter Care Teams Potato Chip Maker Relationship Specialty Start Date End Date None, Provider PCP - General 09/20/19 Unknown, Provider, 09/20/19 documented as of this encounter
--- OUTSIDE RECORDS SUMMARY | 2023-10-14 01:03 | XMS_ITS | Encounter Summary ---
Author Organization [facility] [place] [address] Care Team Providers Care Interactive Account Manager Name Role Phone None Primary Care Provider Unavailabl e Encounter Details Date Type Department Care Team (Late st Contact Info) Description 08/24/2022 Ancillary Procedure [place] [address] Keenan Hernandez, [facility] [place] [address] Social History Tobacco Use Types Packs/Day Years [...] other complication documented as of this encounter Procedures Procedure Name Priority Date/Time Associated Diagnosis Comments FILM LIBRARY STORAGE ONLY ULTRASOUND STUDY Routine 08/24/2022 12:00 AM EDT documented in this encounter Results * Film Library- Storage Only Ultrasound Study (08/24/2022 12:00 AM EDT) Narrative [facility] - 09/01/2022 10:50 AM EDT This exam is auto-finalizing. It's purpose is for storage only. Keenan Hernandez DO IMG FILM LIBRARY ORD ERABLES [facility] [place], [place] documented in this encounter Visit Diagnoses Not on filedocumented in this encounter Care Teams Interactive Account Manager Relationship Specialty Start Date End Date None None PCP - General 09/08/21 documented as of this encounter
--- OUTSIDE RECORDS SUMMARY | 2023-10-14 01:03 | XMS_ITS | Encounter Summary ---
Author Organization [facility] Address [address] [place] [address] Care Team Providers Care Operator Cavity Pump Name Role Phone None, Provider Primary Care Provider Unavailabl e Unknown, Provider MD Unavailable Encounter Details Date Type Department Care Team (Late st Contact Info) Description 03/25/2020 Lab Requisition [facility] Pathology & Laboratory Medicine - [address] [phone] Outr Resulting Lab, Provider Social History Tobacco [...] Procedure Name Priority Date/Time Associated Diagnosis Comments CHLAMYDIA/N. GONORRHOEAE AMPLIFIED NUCLEIC ACID Routine 03/25/2020 10:15 EST documented in this encounter Results * CHLAMYDIA/N. GONORRHOEAE AMPLIFIED RNA (03/25/2020 10:15 EST) Neisseria gonorrhoeae Result Negative Negative 03/26/2020 15:33 EST [facility] Chlamydia trachomatis Result Negative Negative 03/26/2020 15:33 EST [facility] Swab ENTIRE ENDOCERVIX / Unknown 03/25/2020 10:15 EST 03/25/2020 22:31 EST Provider Outr Resulting Lab MICROBIOLOGY - GENERAL ORDERABLES [facility] [address] [place] [address] documented in this encounter Visit Diagnoses Not on filedocumented in this encounter Care Teams Operator Cavity Pump Relationship Specialty Start Date End Date None, Provider PCP - General 09/20/19 Unknown, Provider, 09/20/19 documented as of this encounter
--- OUTSIDE RECORDS SUMMARY | 2023-10-14 01:03 | XMS_ITS | Encounter Summary ---
Author Organization [facility] Address [address] [place] [address] Care Team Providers Care Aircraft Captain Name Role Phone None, Provider Primary Care Provider Unavailabl e Unknown, Provider MD Unavailable Encounter Details Date Type Department Care Team (Late st Contact Info) Description 01/01/2021 Lab Requisition [facility] Pathology & Laboratory Medicine - [address] [address] Lynn Cedeño [address] [place] [address] [facility] [place] [address] Encounter for other general examination Social History Tobacco Use Types Packs/Day Years [...] Date/Time Associated Diagnosis Comments SURGICAL PATHOLOGY Today 01/01/2021 15 :45 EDT Encounter for other general examination documented in this encounter Results * SURGICAL PATHOLOGY (01/01/2021 15:45 EDT) Note to Patient The following pathology results have been interpreted by your pathologist and may be available to you before your health provider has had the opportunity to review them. Please allow time for your provider to receive these results and explore management options, if applicable. 01/03/2021 11:06 EDT [facility] Final Diagnosis A. VULVA, 7 O'CLOCK, BIOPSY: - Epithelial hyperplasia with focal papillomatosis, edema, and mild chronic inflammation. See comment. 01/03/2021 11:06 [facility] Diagnosis Comment Multiple sections of the biopsy were reviewed. The histologic features are relatively nonspecific but could represent changes secondary to irritation. Namely, there is epithelial hyperplasia and edema with a mild, nonspecific chronic inflammatory infiltrate. Although there is a focal area of papillomatosis, no definitive viral (HPV) cytopathic changes are seen. The epithelium has reactive changes but no appreciable atypia. There is no interface alteration to suggest lichen planus or lichen sclerosus. No fungal organisms are identified. 01/03/2021 11:06 [facility] Attestation By the signature below, the attending physician certifies that they have 1) personally conducted a gross and/or microscopic examination of the described specimen(s), and/or personally interpreted the results of laboratory testing of the described specimen(s), and 2) personally rendered or confirmed the above diagnosis. 01/03/2021 11:06 [facility] at 1106 Microscopic Description Sections consist of a portion of squamous mucosa. The mucosa has areas of hyperplasia and, at the edge, papillomatosis. The epithelium shows mild reactive changes but matures and in order early fashion. There is mild exocytosis of lymphocytes no significant spongiosis or interface alteration. The underlying tissues are edematous and have a patchy, sparse lymphocytic infiltrate with occasional plasma cells. Deeper sections show similar features. No fungal organisms are identified on sections prepared with PAS-diastase stain. 01/03/2021 11:06 [facility] Clinical History Vulvar lesion 01/03/2021 11:06 [facility] Gross Description A. Received in formalin labelled with proper patient identification (initials T, S) and vulvar Bx 7 o'clock is a dull morrissey-brown portion of tissue, 0.3 x 0.2 x 0.2 cm having a focally verrucous surface. Entirely submitted intact in A1. MIGUEL HACKETT(ASCP) 01/02/2021 7:30 01/03/2021 11:06 [facility] Performing Lab [facility] 01/03/2021 11:06 [facility] Scanned Images 01/03/2021 11:06 EDT [facility] Tissue ENTIRE VULVA / Unknown 01/01/2021 15:45 EDT 01/01/2021 23:08 EDT Lynn Cedeño PATHOLOGY ORDERABLES [facility] [address] [place] [address] documented in this encounter Visit Diagnoses Diagnosis Encounter for other general examination documented in this encounter Care Teams Aircraft Captain Relationship Specialty Start Date End Date None, Provider PCP - General 09/20/19 Unknown, Provider, 09/20/19 documented as of this encounter
--- OUTSIDE RECORDS SUMMARY | 2023-10-14 01:03 | XMS_ITS | Encounter Summary ---
Author Organization [facility] Address [address] [place] [address] Care Team Providers Care Svp Chief Marketing Officer Name Role Phone Unknown, Provider Primary Care Provider [phone] Encounter Details Date Type Department Care Team (Late st Contact Info) Description 06/20/2015 Results Only [facility] [phone] Carmen Sheets MD [address] [place] [address] [address] [place], [place] [id number] Social History Tobacco Use Types Packs/Day Years [...] Diagnosis Comments PAP TEST- RESULT ONLY Routine 06/20/2015 0:00 EDT documented in this encounter Results * PAP TEST- RESULT ONLY (06/20/2015 0:00 EDT) Pathology Report: CYTOPATHOLOGY REPORT Reports generated via electronic interface contain original data; however they are lacking the format of the original report. Caution should be taken when reading/interpreti ng unformatted reports. Name: ? JOE NIÑO ? Accession #: ? [id number] ? : ? 1985 (Age: 30) ??F ?Collect Date: ? 06/20/2015 ? Location: ? [facility] ? Receive Date: ? 06/21/2015 ? Provider: CARMEN SHEETS MD Copy to: JC CHARLES MD ? Final Report SPECIMEN ADEQUACY ? Satisfactory for Evaluation - transformation zone component present GENERAL CATEGORIZATION ? Negative for Intraepithelial Lesion or Malignancy ?? 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 Katharine Adler [facility](ASCP) ? Report ??Date: 06/27/2015 13:07 HPV with Pap Test ? Date Ordered: ? 06/27/2015 ? Status: ?? Signed Out ?Date Complete: ? 07/01/2015 ? By: ??System Interface ? Date Reported: ? 07/01/2015 ? Interpretation RESULT: Negative for HPV. No E6 or E7 mRNA is detected from HPV types 16,18,31,33,35, 39,45,51,52,56,58, 59,66, and 68 by html developer mediated amplification. Comments Document reviewed and electronically signed by: ? System Interface ? Report date: 07/01/2015 By the signature above, the attending physician certifies that he/she has personally conducted a gross and/or microscopic examination of the described specimens and rendered or confirmed the above diagnosis. End of Report [facility] 06/20/2015 06/21/2015 Carmen Sheets MD PATHOLOGY ORDERABLES [facility] [address] [place] [address] documented in this encounter Visit Diagnoses Not on filedocumented in this encounter Care Teams Svp Chief Marketing Officer Relationship Specialty Start Date End Date Unknown, Provider, PCP - General 06/21/15 09/19/19 documented as of this encounter
--- OUTSIDE RECORDS SUMMARY | 2023-10-14 01:03 | XMS_ITS | Encounter Summary ---
Author Organization [facility] [place] [address] [place] [address] Care Team Providers Care Power Switchboard Operator Name Role Phone None Primary Care Provider Unavailabl e Encounter Details Date Type Department Care Team (Late st Contact Info) Description 03/17/2022 Telephone Obstetrics [place] [phone] Sophie Elizalde RN Social History Tobacco Use Types Packs/Day [...] encounter Miscellaneous Notes * Telephone Encounter - Sophie Elizalde RN - 03/17/2022 2:13 PM EST Returning TC to Wilfredo Renay 36 y.o. to discuss her appointment questions. Wilfredo has known uterine fibroids (reports MRIs completed here at [facility] and U/S from her local [facility] office) and is wondering ifour office completes UFE. Discussed with Dr. Hardy who states that [facility] completes UAE instead of UFEs. This would be completed in radiology and patient would need to be referred there for this. Patient is interested in discussing this further with [facility] care team here and discuss side effects/risks.After meeting she will decide on whether to continue to Radiology referral. * Telephone Encounter - Sophie Elizalde RN - 03/17/2022 2:13 PM EST ----- Message from Princess Morrow sent at 03/17/2022 1:24 PM EST ----- Regarding: Procedure Caller's name: Wilfredo Niño Call back #: [phone] Patient's provider/team: Dr Hardy Reason for call: would like to discuss a certain procedure and if we do not do them she does not want to keep appt on 03/31? documented in this encounter Plan of Treatment Scheduled Procedures Name Priority Associated Diagnoses Date/Ti me COLONOSCOPY, DIAGNOSTIC (WRV U 3.26) Crohn's disease of small intestine with other complication documented as of this encounter Visit Diagnoses Not on filedocumented in this encounter Care Teams Power Switchboard Operator Relationship Specialty Start Date End Date None None PCP - General 09/08/21 documented as of this encounter
--- OUTSIDE RECORDS SUMMARY | 2023-10-14 01:03 | XMS_ITS | Encounter Summary ---
Author Organization [facility] [place] [address] Care Team Providers Care Visual Merchandising Assistant Name Role Phone None Primary Care Provider Unavailabl e Reason for Visit * Consultation (Routine) - Closed Specialty Diagnoses / Procedures Referred By Contac t Referred To Contact Interventional Radiology Diagnoses Abnormal uterine bleeding Intramural leiomyoma of uterus Chronic pelvic pain in female Sil Hardy MD [facility] [address] OBSTETRICS [place] [address] [facility] [address] [place] [address] Referral ID Status Reason Start Date Expiration Date V isits Requested Visits Authorized [id number] Closed Specialty Service Requested 04/16/2022 04/16/2023 1 1 Encounter Details Date Type Department Care Team (Latest Contact Info) Description 04/16/2022 3:45 PM EST TH Visit (TeleHealth) [place] [address] Keenan Hernandez DO [facility] [place] [address] Intramural and subserous leiomyoma of uterus; Menorrhagia with irregular cycle; Acute pelvic pain, female; Chronic pelvic pain in female; Urinary frequency; Constipation, unspecified constipation type Social History Tobacco Use Types Packs/Day Years [...] as of this encounter Miscellaneous Notes * Consult Note - Keenan Hernandez, DO - 04/16/2022 3:45 PM EST Images from the original note were not included. INTERVENTIONAL RADIOLOGY FOCUSED CONSULTATION, H&P and PRE-PROCEDURE NOTE: PCP: None Referring Provider: Lorin Hardy MD Procedure Indication: Menorrhagia. Fibroid Uterus. Procedure Request: Procedure request received through the Interventional Radiology eDH order queue. Presenting Diagnosis/ Complaint: Wilfredo Niño is a 36 y.o. female presenting to IR for consultationat the request of Dr. Hardy regarding treatment options for menorrhagia in the setting of a fibroid uterus. Past medical history is significant for Crohn's [...] that I am 36 and that it m ay not be in the cards for me). Not planning in the next 6 months, but maybe in the future. Doesn't want a hysterectomy. Wants least surgery possible. Also doesn't want to take anymore medications because she is already on medications for crohn's. Also reports urinary frequency and constipation. No pain in the back or thighs. [place] [facility] Antiplatelets: None. Anticoagulants: None. Recent Laboratories: ??? None in our system ??? Getting Laboratories Before Procedure: No. Allergies: None. Past Medical/Surgical History: Patient Active Problem List Diagnosis Code ??? 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 Crohn's disease of perianal region with complication K50.119 ??? Crohn's disease of small intestine with other complication K50.018 No past medical history on file. Past Surgical History: Procedure Laterality Date ??? PRO COLONOSCOPY, BIOPSY N/A 01/31/2021 COLONOSCOPY FLEXIBLE, WITH BX (WRVU 3.66) performed by Damaris May MD at [facility] ??? PRO COLONOSCOPY, DIAGNOSTIC N/A 01/31/2021 COLONOSCOPY, DIAGNOSTIC performed by Damaris May MD at [facility] Medications: Current Outpatient Medications on File Prior to Visit Medication Sig Dispense Refill ??? mercaptopurine (Purinethol) 50 mg tablet TAKE ONE-HALF TABLET BY MOUTH EVERY DAY FOR CROHNS DISEASE Indications: Crohn's disease 45 tablet 3 ??? [DISCONTINUED] lidocaine/hydrocortisone ac (lidocaine HCl-hydrocortison ac) 2 %-2 % (7 gram) Kit Place 1 Application rectally 2 times daily as needed (perianal pain). Apply pea sized amount to affected perianal area twice daily as needed x 4 weeks (Patient not taking: Reported on 09/08/2021) 1 kit 0 ??? [DISCONTINUED] NIFEdipine, Bulk, Powder 0.2% in aquaphor or plastibase. Apply pea size amount twice daily x 6 weeks (Patient not taking: Reported on 09/08/2021) 100 g 1 ??? [DISCONTINUED] tacrolimus (Protopic) 0.1 % Ointment Apply to external anal fissure twice daily x 8 weeks (Patient not taking: No sig reported) 60 g 0 No current facility-administered medications on file prior to visit. Allergies: Patient has no known allergies. Social History and Habits: Social History Socioeconomic History ??? Marital status: [...] on file Housing Stability: Not on file Significant Family History: No family history on file. Pertinent ROS: as per HPI Labs: Imaging: Physical Exam: Pending (to be performed in angio the day of procedure) ASA: Pending (to be assessed in angio the day of procedure) Mallampati Class: Pending (to be assessed in angio the day of procedure) Discussion: I went over uterine artery embolization with Ms. Niño. I first pointed out to her that uterine artery embolization is not universally successful. I quoted her a success rate likely in the 80-90???sfor bleeding related symptoms and in the 60-80???s for bulk related symptoms. I also quoted her a rate of premature menopause of between 5-10% post embolization and discussed the risk of non target embolization. We went over the potential for infection post procedure. I explained post embolization syndrome, which can mimic infection, but is expected in the days immediately post procedure. I noted that we cover patients during that time with antibiotics. I pointed out the potential for passage of sloughed fibroid material and the possibility of material being trapped within the uterine cavity and requiring a D&C for removal. We did not discuss; however, I do not routinely obtain imaging post procedure unless it would help her make a decision. If the embolization were to be effective then additional imaging would contribute nothing. If the embolization were not effective then she would need to decide on surgery vs repeat embolization. In that situation I would obtain an enhanced MR to see if there were fibroids that might be targets for repeat embolization. I described the procedure, the typical overnight admission and the likely discharge the following day. I did note that we have had patients who have been admitted for a longer period of time and I advised her that she would probably want to plan for at least a week off from work. At the conclusion of our discussion, Ms Niño felt that her questions had been answered and she would like to think about uterine artery embolization. Assessment: 36 y.o. female with menorrhagia, urinary frequency, and constipation associated with a fibroid uterus. Reviewed with Attending: Dr. Hernandez Plan: Patient has evaluation at [facility] regarding myoectomy. Patient will call with decision regarding UAE. She can also call for any further questions or concerns. 04/16/2022 documented in this encounter Plan of Treatment Scheduled Procedures Name Priority Associated Diagnoses Date/Ti me COLONOSCOPY, DIAGNOSTIC (WRV U 3.26) Crohn's disease of small intestine with other complication Scheduled Referrals Name Type Priority Associated Diagnoses Order Schedule Referral to Interventional Radiology (Primary Care Use Only) Outpatient Referral Routine Abnormal uterine bleeding Intramural leiomyoma of uterus Chronic pelvic pain in female Ordered: 04/16/2022 documented as of this encounter Visit Diagnoses Diagnosis Intramural and subserous leiomyoma of uterus Menorrhagia with irregular cycle Excessive or frequent menstruation Acute pelvic pain, female Unspecified symptom associated with female genital organs Chronic pelvic pain in female Unspecified symptom associated with female genital organs Urinary frequency Constipation, unspecified constipation type documented in this encounter Care Teams Visual Merchandising Assistant Relationship Specialty Start Date End Date None None PCP - General 09/08/21 documented as of this encounter
--- OUTSIDE RECORDS SUMMARY | 2023-10-14 01:03 | XMS_ITS | Encounter Summary ---
Author Organization [facility] Address [address] [place] [address] Care Team Providers Care Rotary Adjuster Name Role Phone None, Provider Primary Care Provider Unavailabl e Unknown, Provider MD Unavailable Encounter Details Date Type Department Care Team (Late st Contact Info) Description 06/12/2022 Lab Requisition [facility] Pathology & Laboratory Medicine - [address] [phone] Outr Resulting Lab, Provider Social History Tobacco [...] Procedure Name Priority Date/Time Associated Diagnosis Comments TISSUE TRANSGLUTAMINASE ANTIBODY, IGA Routine 06/12/2022 8:22 EDT documented in this encounter Results * TISSUE TRANSGLUTAMINASE AB, IGA (06/12/2022 8:22 EDT) Tissue Transglutaminase Antibody IGA <1.2 <4.0 U/mL 06/15/2022 13:28 EDT [facility] Comment: A negative result may be due to IgA deficiency and does not rule out celiac disease. ? Negative: ??<4.0 U/mL ? Weak Positive: ??4.0 - 10.0 U/mL ? Positive: ??>10.0 U/mL Results were obtained with the [employer] QUANTA Lite R h-tTG IgA JANELLE assay on the [employer] DSX. Blood VENOUS BLOOD / Unknown 06/12/2022 8:22 EDT 06/12/2022 18:51 EDT Provider Outr Resulting Lab IMMUNOLOGY A ND SEROLOGY ORDERABLES Performing Organization Address City/State/[facility] Co de Phone Number [facility] [address] [place] [address] documented in this encounter Visit Diagnoses Not on filedocumented in this encounter Care Teams Rotary Adjuster Relationship Specialty Start Date End Date None, Provider PCP - General 09/20/19 Unknown, Provider, 09/20/19 documented as of this encounter
--- OUTSIDE RECORDS SUMMARY | 2023-10-14 01:03 | XMS_ITS | Clinical Summary ---
Author Organization [facility] Address [facility] [place] [address] Care Team Providers Care Chief Fishery Division Name Role Phone None Primary Care Provider Unavailabl e Allergies No known active allergies Medications Medication Sig Dispensed Refills Start Date End Date Status ergocalciferol, vitamin D2, (VITAMIN D ORAL) every 24 hours. Active multivitamin (THERAGRAN) Tablet Take 1 tablet by mouth daily. Active oxyCODONE (Roxicodone) 5 mg tablet Take 1 tablet by mouth every 4 hours as needed for Pain. 12 tablet 09/15/2022 Active oxyCODONE (Roxicodone) 5 mg tablet Take 1 tablet by mouth every 4 hours as needed for Pain. 10 tablet 09/16/2022 Active Active Problems Problem Noted Date Diagnosed Date Fibroid uterus 09/14/2022 Dermatitis 05/17/2022 Overview (05/17/2022): Photosensitive, 6-MP Abnormal LFTs 05/17/2022 Iron deficiency anemia due to chronic blood loss 05/17/2022 Overview (05/17/2022): Likely 2/2 to uterine bleeding, fibroids Fibroids 05/17/2022 Abnormal uterine bleeding (AUB) 05/17/2022 Crohn's disease of perianal region with complica tion 09/08/2021 Crohn's disease of small intestine with other co mplication 09/08/2021 Chronic anal fissure 11/29/2020 Social History Tobacco Use Types Packs/Day Years Used Date Smoking Tobacco: Former Cigarettes Q uit: 08/29/2012 Smokeless Tobacco: Never Tobacco Cessation:Counseling Given: Not Answered Alcohol Use Standard Drinks/Week Comments Yes 0 (1 standard drink = 0.6 oz pur e alcohol) 5-8 beers/week Sex and Gender Information Value Date Recorded Sex Assigned at Female 01/20/2021 12:59 PM EDT Gender Identity Female 01/20/2021 12:59 PM EDT Sexual Orientation Straight 01/20/2021 12 :59 PM EDT Last Filed Vital Signs Vital Sign Reading Time Taken Comments Blood Pressure 143/80 09/15/2022 7:24 AM EDT Pulse 89 09/14/2022 11:05 AM EDT Temperature 37.3 ??C (99.1 ??F) 09/15/2022 7:24 AM ED T Respiratory Rate 16 09/15/2022 7:24 AM EDT Oxygen Saturation 97% 09/15/2022 7:24 AM EDT Inhaled Oxygen Concentration - - Weight 66.5 kg (146 lb 9.7 oz) 09/14/2022 7:16 A M EDT Height 162.6 cm (5' 4) 01/07/2022 12:14 PM EDT Body Mass Index 25.16 01/07/2022 12:14 PM EDT Plan of Treatment Scheduled Procedures Name Priority Associated Diagnoses Date/Ti me COLONOSCOPY, DIAGNOSTIC (WRV U 3.26) Crohn's disease of small intestine with other complication Health Maintenance Due Date Last Done Comments HIV screen 2003 Hepatitis C Screening 2003 Hepatitis B vaccine (0-59 yrs) (1) 2004 Tdap adult 2004 Tetanus vaccine 2004 HPV test 2015 PAP Smear 2015 Covid-19 Vaccine (2022- season) 2022 Influenza (Flu) vaccine (1 o f 1 - Influenza standard series) 11/21/2023 Advance Directives * Attempt Cardiopulmonary Resuscitation - Inpatient (Latest Code Status on File) Date Activated Date Inactivated Comments 09/14/2022 8:18 AM 09/15/2022 1:02 PM Question Answer Comments Code Status decision made by: Patient Care Teams Chief Fishery Division Relationship Specialty Start Date End Date None None PCP - General 09/08/21
--- OUTSIDE RECORDS SUMMARY | 2023-10-14 01:03 | XMS_ITS | Encounter Summary ---
[facility] Organization [facility] [place] [address] Care Team Providers Care Asphalt Blender Name Role Phone None Primary Care Provider Unavailabl e Reason for Visit * Auth/Cert (Routine) Specialty Diagnoses / Procedures Referred By Shalini t Referred To Contact Diagnoses Intramural and subserous leiomyoma of uterus INTRAMURAL AND SUBSEROUS LEIOMYOMA OF UTERUS Procedures PRO VASCULAR EMBOLIZATION OR OCCLUSION ORGAN TUMOR INFARCT ARTERIOGRAMS Keenan Hernandez [facility] [place] [place] [address] [facility] Referral ID Status Reason Start Date Expiration Date Visits Re quested Visits Authorized [id number] 1 1 Encounter Details Date Type Department Care Team (Late st Contact Info) Description 09/14/2022 8:30 AM EDT - 09/14/2022 11:10 [place] [address] Keenan Hernandez [facility] [place] [place] [address] ARTERIOGRAMS Social History Tobacco Use Types Packs/Day Years [...] PM EDT documented as of this encounter Discharge Instructions * Patient Instructions* [...] next few weeks, please call our appointment private secretary at [phone]. Our Phone Numbers: Interventional Radiology: [phone] After regular office hours, weekends or holidays, please call the [facility] main number at [phone],and ask for the doctor applications sales representative for Dr. Hernandez. documented in this encounter [...] Wallis RN - 09/15/2022 10:28 AM EDT [facility] Short Stay Unit Discharge Note All relevant [...] next few weeks, please call our appointment private secretary at [phone]. Our Phone Numbers: Interventional Radiology: [phone] After regular office hours, weekends or holidays, please call the [facility] main number at [phone],and ask for the doctor applications sales representative for Dr. Hernandez. General Instructions None Provider Contact Information: None None Phone: None Fax: None Discharge References/Attachments: Discharge References/Attachments None documented in this encounter Plan of Treatment Scheduled Procedures Name Priority Associated Diagnoses Date/Ti me COLONOSCOPY, DIAGNOSTIC (WRV U 3.26) Crohn's disease of small intestine with other complication documented as of this encounter Visit Diagnoses Not on filedocumented in this encounter Admitting Diagnoses Diagnosis Fibroid [...] mg/mL) in sodium chloride 0.9% 50 mL EGG SMELLER infusion syringe Intravenous, EGG SMELLER ONLY, Starting on Wed09/14/22 at 1445, Until [...] Routine, Indication for (Active or Suspected): Prophylaxis 812 (Given - Provid er: Carmen Wallis RN) EGG SMELLER Shift Total Intravenous, 2 Times Daily- EGG SMELLER Shift Total, First dose on Wed09/14/22 at [...] mg/mL) in sodium chloride 0.9% 50 mL EGG SMELLER infusion syringe Intravenous, EGG SMELLER ONLY, Starting on Wed09/14/22 at 1445, Until [...] 1355, Until Wed09/15/22 at 1302, Itching, Per EGG SMELLER order., Recovery (Recovery-Hospital Unit), Routine ketorolac (Toradol) [...] NOT exceed 2 mg total dose. Per EGG SMELLER order., Recovery (Recovery-Hospital Unit), Routine ondansetron (pf) (Zofran) (2 mg/mL) injection 4-8 mg(Linked Group 2) 4-8 mg, Intravenous, EVERY 8 HOURS PRN, Starting on Wed09/14/22 at 1355, Until Wed09/15/22 at 1302, Nausea, Start with 4mg and if ineffective in 30 minutes, give an additional 4mg If multiple antiemetics are ordered, give ondansetron first., Recovery (Recovery-Hospital Unit) 2255 (Given - Provider: Kristy López, RN) ondansetron (Zofran) tablet 4-8 mg(Linked Group [...] 60 minutes, give additional 5mg., Routine 0832 (Given - Provid er: Kandice Galindo LPN) oxyCODONE (Roxicodone) tablet 5-10 mg(Linked Group 3) 5-10 mg, Oral, EVERY 4 HOURS PRN, Starting on Wed09/15/22 at 0812, Until Wed09/15/22 at 1302, Pain, moderate pain (4-6), Initial dose 5mg. If pain control not adequate in 60 minutes, give additional 5mg., Routine 0832 (See Alternativ e - Provider: Kandice Galindo LPN) EGG SMELLER mccrary Intravenous, CONTINUOUS PRN, Starting on Wed09/14/22 at 1355, Until Wed09/15/22 at 1302, Needed for nurse EGG SMELLER pump access., Recovery (Recovery-Hospital Unit) prochlorperazine (Compazine) [...] ordered, use ondansetron first, prochlorperazine second. Per EGG SMELLER order., Recovery (Recovery-Hospital Unit), Routine prochlorperazine (Compazine) [...] Routine documented in this encounter Care Teams Asphalt Blender Relationship Specialty Start Date End Date None None PCP - General 09/08/21 documented as of this encounter
--- OUTSIDE RECORDS SUMMARY | 2023-10-14 01:03 | XMS_ITS | Encounter Summary ---
Author Organization [facility] Address [address] [place] [address] Care Team Providers Care Food Stand Manager Name Role Phone None, Provider Primary Care Provider Unavailabl e Unknown, Provider MD Unavailable Encounter Details Date Type Department Care Team (Late st Contact Info) Description 01/24/2021 Lab Requisition [facility] Pathology & Laboratory Medicine - [address] [phone] Outr Resulting Lab, Provider Social History Tobacco [...] Associated Diagnosis Comments QUANTIFERON MITOGEN (PERFORMABLE) Today 01/23/2021 7:48 EDT QUANTIFERON TB2 (PERFORMABLE) Today 01/23/2021 7:48 EDT QUANTIFERON TB1 (PERFORMABLE) Today 01/23/2021 7:48 EDT QUANTIFERON NIL (PERFORMABLE) Today 01/23/2021 7:48 EDT QUANTIFERON INTERPRETATION (PERFORMABLE) Today 01/23/2021 7:48 EDT QUANTIFERON TB GOLD PLUS Routine 01/23/2021 7:48 EDT documented in this encounter Results * QUANTIFERON INTERPRETATION (PERFORMABLE) (01/23/2021 7:48 EDT) Quantiferon Interpretation Negative Negative 01/27/2021 15:07 EST [facility] Comment:No interferon-gamma response to M. tuberculosis antigens was detected. ??Infection with M. tuberculosis is unlikely. A single negative result does not exclude infection with M. tuberculosis. ??In patients at high risk for M. tuberculosis infection, a second test should be considered. TB1 Ag minus Nil 0.00 IU/ml 01/28/20 15:07 EST [facility] TB2 Ag minus Nil 0.00 IU/mL 01/28/20 15:07 EST [facility] Blood VENOUS BLOOD / Unknown 01/23/2021 7:48 EDT 01/27/2021 14:56 EST Narrative [facility] - 01/27/2021 15:07 EST Results were obtained with the [employer] QuantiFERON-TB Gold Plus CLIA. New platform in use 11/27/2020 Provider Outr Resulting Lab IMMUNOLOGY A ND SEROLOGY ORDERABLES Performing Organization Address [facility] Co de Phone Number [facility] [address] [place] [phone] * QUANTIFERON MITOGEN (PERFORMABLE) (01/23/2021 7:48 EDT) Blood VENOUS BLOOD / Unknown 01/23/2021 7:48 EDT 01/24/2021 16:13 EDT Provider Outr Resulting Lab IMMUNOLOGY A ND SEROLOGY ORDERABLES Performing Organization Address City/[facility]/ZIP Co de Phone Number [facility] [address] [place] [phone] * QUANTIFERON TB2 (PERFORMABLE) (01/23/2021 7:48 EDT) Blood VENOUS BLOOD / Unknown 01/23/2021 7:48 EDT 01/24/2021 16:13 EDT Provider Outr Resulting Lab IMMUNOLOGY A ND SEROLOGY ORDERABLES Performing Organization Address [facility] Co de Phone Number [facility] [address] [place] [phone] * QUANTIFERON TB1 (PERFORMABLE) (01/23/2021 7:48 EDT) Blood VENOUS BLOOD / Unknown 01/23/2021 7:48 EDT 01/24/2021 16:13 EDT Provider Outr Resulting Lab IMMUNOLOGY A ND SEROLOGY ORDERABLES Performing Organization Address [facility] de Phone Number [facility] [address] [place] [address] * QUANTIFERON NIL (PERFORMABLE) (01/23/2021 7:48 EDT) Blood VENOUS BLOOD / Unknown 01/23/2021 7:48 EDT 01/24/2021 16:13 EDT Provider Outr Resulting Lab IMMUNOLOGY A ND SEROLOGY ORDERABLES Performing Organization Address [facility] de Phone Number [facility] [address] [place] [address] documented in this encounter Visit Diagnoses Not on filedocumented in this encounter Care Teams Food Stand Manager Relationship Specialty Start Date End Date None, Provider PCP - General 09/20/19 Unknown, Provider, 09/20/19 documented as of this encounter
--- OUTSIDE RECORDS SUMMARY | 2023-10-14 01:03 | XMS_ITS | Encounter Summary ---
Author Organization [facility] [place] [address] Care Team Providers Care Wallpaperer Helper Name Role Phone None Primary Care Provider Unavailabl e Encounter Details Date Type Department Care Team (Latest Contact Info) Description 01/20/2022 Travel Social History Tobacco Use Types Packs/Day Years [...] on filedocumented in this encounter Care Teams Wallpaperer Helper Relationship Specialty Start Date End Date None None PCP - General 09/08/21 documented as of this encounter
--- OUTSIDE RECORDS SUMMARY | 2023-10-14 01:03 | XMS_ITS | Encounter Summary ---
[facility] [place] [address] Care Team Providers Care Master Cook Name Role Phone None Primary Care Provider Unavailabl e Reason for Referral * Diagnostic Test (Routine) - Closed Specialty Diagnoses / Procedures Referred By Shalini mark Referred To Contact Radiology Diagnoses Intramural and subserous leiomyoma of uterus Menorrhagia with irregular cycle Acute pelvic pain, female Chronic pelvic pain in female Urinary frequency Constipation, unspecified constipation type Procedures IR Arteriogram/Embolization - Uterine Artery Keenan Hernandez, [facility] [place] [address] [place] [address] Referral ID Status Reason Start Date Expiration Date V isits Requested Visits Authorized [id number] Closed Specialty Service Requested 09/03/2022 03/05/2024 1 1 Encounter Details Date Type Department Care Team (Latest Contact Info) Description 09/03/2022 1:15 PM EDT TH Visit (TeleHealth) [place] [address] Keenan Hernandez [facility] [place] [address] Intramural and subserous leiomyoma of [...] PM EDT documented as of this encounter Progress Notes * Keenan Hernandez DO - 09/03/2022 1:15 PM EDT INTERVENTIONAL RADIOLOGY Brief Progress Note Please see initial consultation of 04/16/22 for details. In the interm, the patient has met with gynecology surgery at [facility] and discussed both hysterectomy and myomectomy as treatment options. She is looking to avoid surgery. As far as symptoms go, there has been no significant change in her menorrhagia, urinary frequency, and constipation. No new symptoms. Still requiring iron pills for anemia. Patient had a repeat pelvic ultrasound personally reviewed by me which showed mild enlargement of some of the fibroids, but no other new findings. She would like to move forward with Uterine Artery Embolization. Assessment: 37 y.o. female with symptomatic uterine fibroids. Plan: Planned procedure: Uterine Artery Embolization Labs to be performed day of procedure: None Sedation Methold: Moderate Sedation Prophylactic antibiotic : Ancef Contrast: Yes Additional medications for procedure: Per Uterine Artery Protocol Planned access site: Left Radial versus Right MEDIA JOB TITLES Position: Supine Consent: Pending documented in this encounter Plan of Treatment Scheduled Procedures Name Priority Associated Diagnoses Date/Ti me COLONOSCOPY, DIAGNOSTIC (WRV U 3.26) Crohn's disease of small intestine with other complication documented as of this encounter Results * IR Arteriogram/Embolization - Uterine Artery (09/14/2022 11:10 AM EDT) Anatomical Region Laterality Modality X-Ray Angiograph y Narrative 09/14/2022 11:55 AM EDT INTERVENTIONAL RADIOLOGY PROCEDURE NOTE Procedure: Bilateral Uterine Artery Embolization Indication for Procedure: ?? 36 y.o. female with menorrhagia, urinary frequency, and constipation associated with a fibroid uterus. Consent: After discussing the risks (including infection, hemorrhage, damage to surrounding structures, respiratory depression, non-target embolization, premature menopause) and benefits, the patient consented to the procedure. Method of Sedation: ??Due to the painful nature of the procedure, patient received split doses of intravenous fentanyl and versed from the IR nurse while pulse, pressure, and oxygen saturation were continuously monitored. 1% lidocaine was used for local analgesia. Technique: Prior to beginning the procedure, a standard time out Moment of Truth was performed to confirm all mccrary aspects (including the patient's identity, informed consent, medical record number, allergies, planned procedure and laterality if appropriate) all of which were correct. The patient was positioned supine on the procedure table. Maximum sterile barrier technique was used through out the procedure. After sterile preparation, and localization with fluoroscopy, the left radial artery was identified with sonography. ??Local anesthesia was obtained with 1% lidocaine injected subcutaneously via a 25-gauge needle. ??Under real-time sonographic guidance, a 21-gauge needle was advanced into the artery. ??An 0.018 guide wire was advanced. ??The needle was removed and over the wire a 5-Fr sheath was advanced. A hemodiluted mixture of Heparin, Nitroglycerine, and Verapamil were slowly infused through the sheath. ?? The remainder of the procedure was performed under fluoroscopic guidance. ?? Using a 1.5mm-J guide and a 5-Fr Sunitha catheter, access was obtained to the descending thoracic aorta and subsequently exchanged for a 5-Fr faith catheter advanced, use to then select the right internal iliac artery and contrast study performed. ?? Coaxially, a 3 Fr catheter was advanced over a .018 inch guidewire to select the right uterine artery, confirmed with angiography. ??Embolization was performed with two vials of 400 micron Embozene particles, and one half vial of 500 micron Embozene particles. ??Repeat contrast study was performed. The 3 Fr catheter was removed. The 5-Fr catheter was then used to select the left common iliac artery and subsequently the left internal iliac artery selected and a contrast study was performed. ??The 3 Fr catheter was then advanced over a .018 inch angled glide wire into the left uterine artery. ??Angiography was performed. ??Embolization was then performed with one vial of 400 micron Embozene particles and 0.5 vials of 500 micron Embozene particles. ??Repeat angiography was performed of the left uterine artery. The 5-Fr catheter was then retracted into the aorta and an aortogram was obtained. All catheters and wires were removed. Hemostasis was obtained with placement of a TR band. Medications: Lidocaine 1% <10 mL SQ, Versed 6 mg IV, Fentanyl ??300 mcg IV, Dexamethasone 10 mg IV, Reglan 5 mg IV, Toradol 30 mg, Verapamil 3 mg intra-arterial, Nitroglycerine 200 mcg intra-arterial, Heparin 3000 Units intra-arterial. Antibiotic Prophylaxis: Cefazolin 2 g IV Contrast: 110 mL Omnipaque 350, intra-arterial. ?? Fluoroscopy Time: ??26.7 minutes EBL: 50 cc Complications: ??No immediate Findings: Left radial artery widely patent measuring approximately 2 mm in diameter, Barbeau type A. Bilateral tortuous uterine arteries supplying an enlarged uterus with several masses corresponding to fibroid uterus. ??Both arteries embolized to 5-beats of stasis with particles, as detailed above. ?? No arterial supply to the uterus on aortogram; neither ovarian artery identified. Impression: Successful bilateral uterine artery embolization. Galley Worker(s): Resident/Fellow: Durga Arriaza MD Attending: Dr. Hernandez I, Dr. Hernandez, was present throughout the procedure. I was present during the intraservice time as documented by the IR Nurse. ?? Keenan Hernandez DO IMG IR ORDERABLES documented in this encounter Visit Diagnoses Diagnosis Intramural and subserous leiomyoma of uterus Menorrhagia with irregular cycle Excessive or frequent menstruation Acute pelvic pain, female Unspecified symptom associated with female genital organs Chronic pelvic pain in female Unspecified symptom associated with female genital organs Urinary frequency Constipation, unspecified constipation type Intramural and subserous leiomyoma of uterus Menorrhagia with irregular cycle Excessive or frequent menstruation Acute pelvic pain, female Unspecified symptom associated with female genital organs Chronic pelvic pain in female Unspecified symptom associated with female genital organs Urinary frequency Constipation, unspecified constipation type documented in this encounter Care Teams Master Cook Relationship Specialty Start Date End Date None None PCP - General 09/08/21 documented as of this encounter
--- OUTSIDE RECORDS SUMMARY | 2023-10-14 01:03 | XMS_ITS | Encounter Summary ---
[place] [address] Care Team Providers Care Proposal Director Name Role Phone None Primary Care Provider Unavailabl e Reason for Referral * Diagnostic Test (Routine) - Closed Specialty Diagnoses / Procedures Referred By Contac t Referred To Contact Radiology Diagnoses Intramural and subserous leiomyoma of uterus Menorrhagia with irregular cycle Acute pelvic pain, female Chronic pelvic pain in female Urinary frequency Constipation, unspecified constipation type Procedures IR Arteriogram/Embolization - Uterine Artery Keenan Hernandez, [facility] [place] [place] [address] [place] [address] Referral ID Status Reason Start Date Expiration Date V isits Requested Visits Authorized [id number] Closed Specialty Service Requested 09/03/2022 03/05/2024 1 1 Reason for Visit * Auth/Cert (Routine) Specialty Diagnoses / Procedures Referred By Contac t Referred To Contact Diagnoses Intramural and subserous leiomyoma of uterus INTRAMURAL AND SUBSEROUS LEIOMYOMA OF UTERUS Procedures PRO VASCULAR EMBOLIZATION OR OCCLUSION ORGAN TUMOR INFARCT ARTERIOGRAMS Keenan Hernandez [facility] [place] [address] [place] [address] [facility] Referral ID Status Reason Start Date Expiration Date Visits Re quested Visits Authorized [id number] 1 1 Encounter Details Date Type Department Care Team (Latest Contact Info) Description 09/14/2022 7:07 AM EDT - 09/14/2022 1:53 PM EDT Hospital Encounter [place] [address] Keenan Hernandez, [facility] [place] [place] [address] Intramural and subserous leiomyoma of uterus; Menorrhagia with irregular cycle; Acute pelvic pain, female; Chronic pelvic pain in female; Urinary frequency; Constipation, unspecified constipation type Discharge Disposition: Home Social History Tobacco Use [...] Sign Reading Time Taken Comments Blood Pressure 131/78 09/14/2022 1:30 PM EDT Pulse 89 09/14/2022 11:05 AM EDT Temperature 36.5 ??C (97.7 ??F) 09/14/2022 11:05 AM E DT Respiratory Rate 16 09/14/2022 1:30 PM EDT Oxygen Saturation 94% 09/14/2022 1:30 PM EDT Inhaled Oxygen Concentration - - Weight 66.5 kg (146 lb 9.7 oz) 09/14/2022 7:16 A M EDT Height - - Body Mass Index 25.16 01/07/2022 12:14 PM EDT documented in this encounter Discharge Instructions * Discharge Instructions* Alyce Huynh RN - 09/14/2022 9:50 AM EDT Radial Artery Instructions Procedure: Uterine Artery Embolization Puncture Site: left wrist Date: September 14, 2022 1. At home we advise you to rest quietly in bed or on the couch until the next morning. You may getup and walk around but keep your activity to a minimum. DO NOT USE WRIST OF AFFECTED SIDE TO PUSH YOURSELF UP IN BED OR CHAIR TO SHIFT POSITION FOR 12 HOURS POST PROCEDURE. 2. Resume your previous diet. Drink 6-8 ounces of fluid per hour for the next 8 hours. Avoid alcoholic or caffeinated beverages for 24 hours. If you are a diabetic and take Metformin or Janumet or the combination med's that include Metformin, DO NOT take for 2 days after the procedure. 3. Avoid strenuous activity for the next 48 hours, particularly in the next 24 hours. Do not lift anything for the next 48 hours or engage in any sports activity for 48 hours. You may engage in sexual activity after 48 hours. Problems to watch for: 1. If you develop bleeding at the puncture site, put direct pressure on the site for 15 minutes andcall your doctor. Call for help. If the bleeding persists, reapply firm pressure, call 911 for an ambulance and go to your local Emergency Department. 2. If you notice a sudden change in the feeling (numbness, tingling and/or pain) of your hand on the side of the puncture call your doctor. 3. You may develop a bruise and swelling at the catheter insertion site. If you develop a bulge, you may have bleeding inside. Contact your doctor or the Radiology/Vascular Department here. Report signs of infection (redness, swelling, discharge, soreness, or fever) to your doctor. 4. Leave the bandage on for 24-48 hours. A little spot of blood at the catheter insertion site is normal. A small lump or bruise under the skin is normal. They generally disappear in 3-4 days. You may shower the following day after the procedure. You should NOT swim or tub bathe for 48 hours. 5. Expect some mild tenderness over the catheter insertion area. You will notice this after the local anesthetic wears off. This should improve during the 24-48 hours after the procedure. Take tylenol if needed. Contact your doctor is the discomfort worsens. 6. Watch for signs for infection at the catheter site for the first few days at home. Signs include: Redness, swelling with increased soreness, yellow, green or brown fowl smelling drainage. If you think you may have these symptoms, take your temperature, then call your doctor. 7. You have received medication during your procedure to help lessen anxiety and keep you comfortable and which affects judgement and reaction time. We recommend that you do not drive, operate equipment, sign any important documents, or smoke unattended for 24 hours following your procedure. Because of the sedation please be careful on stairs, as you may be unsteady on your feet. You may return to work with the above restrictions on . The limb where the catheter was inserted should look and feel normal in color, sensation, and temperature. If your arm/hand becomes cool, pale, blue or changing color with numbess and tingling, CALL YOUR DOCTOR. If you have any questions or concerns, please call Interventional Radiology Department at until 6pm. After 6pm, or on weekends or hoildays, ralph and ask for the Radiologyresident promotions coordinator. OR Peripheral IV site -- slight redness, or tenderness is normal, you can use a warm compress. If tenderness and redness increases or foul drainage occurs, please contact your M. D. Revised 01/05/19 documented in this encounter Medications at Time of Discharge Medication Sig Dispensed Refills Start Date End Date oxyCODONE (Roxicodone) 5 mg tablet Take 1 tablet by mouth every 4 hours as needed for Pain. 12 tablet 09/15/2022 multivitamin (THERAGRAN) Tablet Take 1 tablet by mouth daily. ergocalciferol, vitamin D2, (VITAMIN D ORAL) every 24 hours. oxyCODONE (Roxicodone) 5 mg tablet Take 1 tablet by mouth every 4 hours as needed for Pain. 12 tablet 09/15/2022 09/15/2022 documented as of this encounter Progress Notes * Vesna Simms RN - 09/09/2022 12:31 PM EDT [facility]GIO NURSING DATABASE Name: Wilrfedo Niño Date of : 1985 AGE: 37 y.o. Address: [address] [place] [phone] (home) Mobile: Telephone Information: Referring Provider: Keenan Hernandez REASON FOR VISIT: Order Questions Answers Where will study be performed? [facility] Radiology [120] Reason for exam and clinical history: Menorrhagia. anemia. Urinary Frequency. Constipation. Enlarged, Fibroid UTerus. Is the patient ? No Is the patient on anticoagulant / antiplatelet therapy ? 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 In post: LOBBYIST Dilaudid 0.2 Q10min, additional Dilaudid 0.6mg IV, Zofran 4mg, Toradol 15mg IV 0905 to procedure room IR 2 via stretcher. Onto table supine. All monitors, O2, safety strap in place. SCD's on as ordered. Meds per protocol. Arterial Puncture Post Procedure Time of Arterial Puncture: 937 Site: left wrist Closure device used: TR Band Time sheath removed: 1056 Time of hemostasis: 1058 Hematoma present?: No 1145 Removed 2mL 1155 Removed 2mL 1205 Removed 2mL 1215 Removed 2mL 1225 Removed 2mL 1235 Removed 2mL (0 left) 1245 Removed TR Band documented in this encounter H&P Notes * Durga Arriaza MD - 09/14/2022 7:48 AM EDT INTERVENTIONAL RADIOLOGY FOCUSED H&P: Procedure: Update to H&P: The patient's history and physical exam have been reviewed and completed. There has been NO interval change from that of the pre-procedural note done within the last 30 days. There is NO change in the procedural plan. Physical Exam: Cardiovascular: Regular, Normal Pulmonary: Breath sounds clear to auscultation Meds: Current medications reviewed. No medications held. Labs: No new relevant labs. The planned procedure (and sedation plan if appropriate) , its benefits and risks, and alternativeswere discussed with the patient. The patient consented to the procedure. PRE-SEDATION ASSESSMENT: Sedation Plan: moderate (conscious sedation) ASA: 1: Normally healthy patient Mallampati: II: tonsillar pillars are blocked by the tongue Confirm NPO status: Yes History of anesthetic complications: No Current medications reviewed: Yes Allergies reviewed: Yes Source Note - Keenan Hernandez DO - 09/03/2022 1:15 PM EDT INTERVENTIONAL RADIOLOGY Brief Progress Note Please see initial consultation of 04/16/22 for details. In the interm, the patient has met with gynecology surgery at [facility] and discussed both hysterectomy and myomectomy as [...] Planned access site: Left Radial versus Right BUS MECHANIC Position: Supine Consent: Pending documented in this encounter Plan of Treatment Scheduled Procedures Name Priority Associated Diagnoses Date/Ti ms COLONOSCOPY, DIAGNOSTIC (WRV U 3.26) Crohn's disease of small intestine with other complication documented as of this encounter Procedures Procedure Name Priority Date/Time Associated Diagnosis Comments IR ARTERIOGRAM/EMBOLI ZATION- UTERINE ARTERY Routine 09/14/2022 11:10 AM EDT Intramural and subserous leiomyoma of uterus Menorrhagia with irregular cycle Acute pelvic pain, female Chronic pelvic pain in female Urinary frequency Constipation, unspecified constipation type POCT URINE Routine 09/14/2022 7:30 AM EDT documented in this encounter Results * IR Arteriogram/Embolization - [...] identified. Impression: Successful bilateral uterine artery embolization. Mechanic Assistant(s): Resident/Fellow: Durga Arriaza MD Attending: Dr. David Vaughn, Dr. Hernandez, was present throughout the procedure. I was present during the intraservice time as documented by the IR Nurse. ?? Keenan Hernandez DO IMG IR ORDERABLES * POCT urine (09/14/2022 7:30 AM EDT) POC Urine HCG Negative POC Control Internal Controls Acceptable 09/14/2022 7:30 AM EDT Keenan Hernandez DO POINT OF CARE TEST O RDERABLES documented in this encounter Visit Diagnoses Diagnosis Intramural and subserous leiomyoma of uterus Menorrhagia with irregular cycle Excessive or frequent menstruation Acute pelvic pain, female Unspecified symptom associated with female genital organs Chronic pelvic pain in female Unspecified symptom associated with female genital organs Urinary frequency Constipation, unspecified constipation type documented in this encounter Administered Medications Inactive Administered Medications - up to 3 most recent administrations Medication Order MAR Action Action Date Dose Rate Site acetaminophen (Tylenol) tablet 975 mg 975 mg, Oral, ONCE, 1 dose, On Wed09/14/22 at 0745, Maximum dose of acetaminophen is 4,000 mg from all sources in 24 hours. When ordered for pain, acetaminophen should be given even when other ordered pain medications are indicated. , Angio/IR (Day of Procedure), Routine Given 09/14/2022 8:16 AM EDT 975 mg ceFAZolin (Ancef) 2 g vial attach to sodium chloride 0.9% 100 mL Mini-Bag Plus 2 g, Intravenous, ONCE, 1 dose, On Wed09/14/22 at 0745, Administer over 30 Minutes, Redose every 4 hours if CrCl is greater than 20 mL/min. Redose every 8 hours if CrCl is less than 20 mL/min., Angio/IR (Day of Procedure), Indication for (Active or Suspected): Prophylaxis New Bag 09/14/2022 9:08 AM EDT 2 g 200 mL/ hr dexAMETHasone (PF) (Decadron) (10 mg/mL) injection 10 mg 10 mg, Intravenous, ONCE, 1 dose, On Wed09/14/22 at 0745, Angio/IR (Day of Procedure) Given 09/14/2022 9:22 AM EDT 10 mg fentaNYL (pf) (50 mcg/mL) multi-dose injection 25-50 mcg 25-50 mcg, Intravenous, EVERY 3 MIN PRN, Starting on Wed09/14/22 at 0728, Until Wed09/15/22 at 0234, Pain, per unit protocol, For use in Interventional Radiology (IR) only for procedural sedation with direct provider supervision and verbal order. - Start dose: 50 mcg (reduce dose to 25 mcg if history of sedation sensitivity). - Titration dose: 25-50 mcg IV, (based on patient response) every 3 minutes PRN to maintain procedural pain less than 2 per Pain Scale. Maximum dose: 50 mcg/dose, 250 mcg/hour, Angio/IR (Intra-Procedure), Routine Given 09/14/2022 10:54 AM EDT 25 mcg Given 09/14/2022 10:49 AM EDT 25 mcg Given 09/14/2022 10:37 AM EDT 25 mcg heparin (porcine) (1,000 units/mL) injection 3,000 Units 3,000 Units, Intra-arterial, ONCE, 1 dose, On Wed09/14/22 at 0745, For radial artery access. For use in Interventional Radiology (IR) only for procedure with direct provider supervision and verbal order., Angio/IR (Intra-Procedure), Routine Given 09/14/2022 9:40 AM EDT 3,000 Units 20-Other (document in comment section) HYDROmorphone (Dilaudid) (1 mg/mL) in sodium chloride 0.9% 50 mL LOBBYIST infusion syringe Intravenous, LOBBYIST ONLY, Starting on Wed09/14/22 at 0745, Until Wed09/15/22 at 0234, Angio/IR (Day of Procedure) New Syringe/Cartridg e 09/14/2022 11:05 AM EDT HYDROmorphone (Dilaudid) (1 mg/mL) injection syringe 0.6 mg 0.6 mg, Intravenous, ONCE, 1 dose, On Wed09/14/22 at 1130, Routine Given 09/14/2022 11:15 AM EDT 0.6 mg iohexoL (Omnipaque) (350 mg/mL) solution 1-400 mL 1-400 mL, Intra-arterial, ONCE, 1 dose, On Wed09/14/22 at 0745, For intra-procedural use by proceduralist., Angio/IR (Intra-Procedure), Routine Given 09/14/2022 7:45 AM EDT 110 mLs ketorolac (Toradol) (30 mg/mL) injection 15 mg 15 mg, Intravenous, ONCE, 1 dose, On Wed09/14/22 at 1215, Routine Given 09/14/2022 12:15 PM EDT 15 mg ketorolac (Toradol) (30 mg/mL) injection 30 mg 30 mg, Intravenous, ONCE, 1 dose, On Wed09/14/22 at 0745, Angio/IR (Day of Procedure), Routine Given 09/14/2022 9:22 AM EDT 30 mg lidocaine (Xylocaine) 1% (10 mg/mL) injection 10 mg 10 mg, Subcutaneous, ONCE, 1 dose, On Wed09/14/22 at 0745, For use in Interventional Radiology (IR) only for procedure with direct provider supervision and verbal order., Angio/IR (Intra-Procedure), Routine Given 09/14/2022 9:37 AM EDT 2 mg 20-Other (document in comment section) metoclopramide (Reglan) (5 mg/mL) injection 10 mg 10 mg, Intravenous, ONCE, 1 dose, On Wed09/14/22 at 0745, Doses greater than 10mg should be diluted into 50ml NS., Angio/IR (Day of Procedure) Given 09/14/2022 9:12 AM EDT 10 mg midazolam (pf) (Versed) (1 mg/mL) multi-dose injection 0.5-1 mg 0.5-1 mg, Intravenous, EVERY 3 MIN PRN, Starting on Wed09/14/22 at 0728, Until Wed09/15/22 at 0234, Sedation, For use in Interventional Radiology (IR) only for procedural sedation with direct provider supervision and verbal order. - Start dose: 1 mg (Reduce dose to 0.5 mg if history of sedation sensitivity). - Titration dose: 0.5 mg - 1 mg (based on patient response) every 3 minutes PRN to obtain RASS score of -3. Maximum dose: 1 mg/dose, 5 mg/hour., Angio/IR (Intra-Procedure), Routine Given 09/14/2022 10:54 AM EDT 0.5 mg Given 09/14/2022 10:49 AM EDT 0.5 mg Given 09/14/2022 10:37 AM EDT 0.5 mg nitroGLYcerin 100 mcg/mL intracoronary dilution 200 mcg 200 mcg, Intra-arterial, ONCE, 1 dose, On Wed09/14/22 at 0745, For radial artery access. For use in Interventional Radiology (IR) only for procedure with direct provider supervision and verbal order., Angio/IR (Intra-Procedure), Routine Given 09/14/2022 9:40 AM EDT 200 mcg 20-Other (document i n comment section) ondansetron (pf) (Zofran) (2 mg/mL) injection 4 mg 4 mg, Intravenous, ONCE PRN, 1 dose, Starting on Wed09/14/22 at 0728, Until Wed09/14/22 at 1118, Nausea, May repeat 4 mg dose 15 minutes after first dose, for unrelieved nausea, for a total of 2 doses., Angio/IR (Intra-Procedure) Given 09/14/2022 11:18 AM EDT 4 mg sodium chloride 0.9 % (flush) (BD PosiFlush Normal Saline 0.9) flush 5 mL 5 mL, Intravenous, 2 TIMES DAILY, First dose on Wed09/14/22 at 0900, Until Discontinued, Angio/IR (Day of Procedure), Routine Given 09/14/2022 8:54 PM EDT 5 mLs Given 09/14/2022 9:00 AM EDT 5 mLs sodium chloride 0.9 % (flush) (BD PosiFlush Normal Saline 0.9) flush 5-20 mL 5-20 mL, Intravenous, EVERY 1 MIN PRN, Starting on Wed09/14/22 at 0728, Until Wed09/15/22 at 0234, flush, Flush pertains to all indwelling lines. Flush per protocol found in the job aid using the link provided on this medication record., Angio/IR (Day of Procedure), Routine Given 09/14/2022 9:24 PM EDT 5 mLs verapamiL (Isoptin) (2.5 mg/mL) injection 2.5 mg 2.5 mg, Intra-arterial, ONCE, 1 dose, On Wed09/14/22 at 0745, Administer over 2 Minutes, For radial artery access. For use in Interventional Radiology (IR) only for procedure with direct provider supervision and verbal order., Angio/IR (Intra-Procedure) Given 09/14/2022 9:40 AM EDT 2.5 mg 30 mL/hr 20-Other (document in comment section) documented in this encounter Care Teams Proposal Director Relationship Specialty Start Date End Date None None PCP - General 09/08/21 documented as of this encounter
--- OUTSIDE RECORDS SUMMARY | 2023-10-14 01:03 | XMS_ITS | Encounter Summary ---
[place] [address] Care Team Providers Care Hvac Sheet Metal Installer Helper Name Role Phone None Primary Care Provider Unavailabl e Reason for Referral * Diagnostic Test (Routine) - Closed Specialty Diagnoses / Procedures Referred By Contac t Referred To Contact Radiology Diagnoses Crohn's disease of perianal region with complication Procedures MRI Pelvis Soft Tissue (GI DISPATCHER RADIO) wwDamaris Stephens MD [facility] [place] [address] [place] [address] Referral ID Status Reason Start Date Expiration Date V isits Requested Visits Authorized [id number] Closed Specialty Service Requested 01/07/2022 07/09/2023 1 1 Reason for Visit * Diagnostic Test (Routine) - Closed Specialty Diagnoses / Procedures Referred By Contac t Referred To Contact Radiology Diagnoses Crohn's disease of perianal region with complication Procedures MRI Pelvis Soft Tissue (GI DISPATCHER RADIO) Damaris Green MD [facility] [place] [address] [place] [address] Referral ID Status Reason Start Date Expiration Date V isits Requested Visits Authorized [id number] Closed Specialty Service Requested 01/07/2022 07/09/2023 1 1 Encounter Details Date Type Department Care Team (Latest Contact Info) Description 01/22/2022 5:40 AM EDT - 01/22/2022 11:59 PM EDT Hospital Encounter MRI at [facility] [place] [address] Damaris May MD [facility] [place] [address] Crohn's disease of perianal region with complication Discharge Disposition: Home Social History Tobacco Use [...] PM EDT documented as of this encounter Medications at Time of Discharge Medication Sig Dispensed Refills Start Date End Date mercaptopurine (Purinethol) 50 mg tabletIndications:Master Data Analyst hn's disease TAKE ONE-HALF TABLET BY MOUTH EVERY DAY FOR CROHNS DISEASE Indications: Crohn's disease 45 tablet 3 08/26/2021 05/17/2022 lidocaine/hydrocortis one ac (lidocaine HCl-hydrocortison ac) 2 %-2 % (7 gram) Kit Place 1 Application rectally 2 times daily as needed (perianal pain). Apply pea sized amount to affected perianal area twice daily as needed x 4 weeks 1 kit 02/20/2021 04/16/2022 NIFEdipine, Bulk, Powder 0.2% in aquaphor or plastibase. Apply pea size amount twice daily x 6 weeks 100 g 1 02/06/2021 04/16/2022 tacrolimus (Protopic) 0.1 % Ointment Apply to external anal fissure twice daily x 8 weeks 60 g 02/06/2021 04/16/2022 documented as of this encounter Progress Notes * Damaris May MD - 01/22/2022 11:59 PM EDT MRI pelvis jan 2022 no visible fistula documented in this encounter Plan of Treatment Scheduled Procedures Name Priority Associated Diagnoses Date/Ti me COLONOSCOPY, DIAGNOSTIC (WRV U 3.26) Crohn's disease of small intestine with other complication documented as of this encounter Procedures Procedure Name Priority Date/Time Associated Diagnosis Comments MRI PELVIS SOFT TISSUE (GI DISPATCHER RADIO) WWO CONTRAST Routine 01/22/2022 6:57 AM EDT Crohn's disease of perianal region with complication documented in this encounter Results * MRI Pelvis Soft Tissue (GI DISPATCHER RADIO) wwo Contrast (01/22/2022 6:57 AM EDT) Anatomical Region Laterality Modality Pelvis Magnetic Resonan ce Impressions 01/22/2022 10:57 AM EDT 1. ??No anal or rectovaginal fistula. 2. ??Multi fibroid uterus with interval enlargement of the multiple intramural fibroids involving the posterior wall. I have personally reviewed the image(s) and the resident's interpretation and agree with the findings, Vikas August MD at 01/22/2022 10:57 AM Thank you for letting us participate in the care of this patient. ??If you are a health care provider and have any questions regarding this report, please contact the number below. ??For patients who have questions please contact the health career technical counselor that requested your imaging first. ? Narrative 01/22/2022 10:57 AM EDT EXAMINATION: MRI PELVIS SOFT TISSUE (GI DISPATCHER RADIO) WWO CONTRAST CLINICAL HISTORY: perianal Crohn's disease. fullness around vagina on DISPATCHER RADIO exam and discharge with BMs, concern for fistula to vagina please evaluate TECHNIQUE: Multisequence, multiplanar noncontrast MRI of the pelvis was performed prior to and following the intravenous administration of 13ml Dotarem. COMPARISON: MRI 02/27/2021 FINDINGS: Anal fistula: None. Ischioanal fossa: Normal signal; no fluid collection. Peritoneum: Trace physiologic free fluid. No loculated collection. Lymph nodes: No adenopathy. GI tract: No bowel wall thickening or dilatation. No adjacent inflammation. Reproductive structures: Again noted is a multifibroid uterus with multiple T2 hypointense enhancing intramural fibroids. The dominant lesions are located along the posterior wall and fundus and has intervally increased in size compared to 2020. The largest fibroid now measures 6.5 cm compared to 5.7 cm previously. Normal right ovary. The left ovary is partially visualized and unremarkable. Osseous structures: Normal marrow signal. Unchanged cyst at the tip of the coccyx, possible inclusion or pilonidal cyst that is likely noncontributory to the patient's symptoms. Procedure Note Vikas August MD - 01/22/2022 EXAMINATION: MRI PELVIS SOFT TISSUE (GI DISPATCHER RADIO) WWO CONTRAST CLINICAL HISTORY: perianal Crohn's disease. fullness around vagina on GYNexam and discharge with BMs, concern for fistula to vagina please evaluate TECHNIQUE: Multisequence, multiplanar noncontrast MRI of the pelvis was performed prior to and following the intravenous administration of 13mlDotarem. COMPARISON: MRI 02/27/2021 FINDINGS: Anal fistula: None. Ischioanal fossa: Normal signal; no fluid collection. Peritoneum: Trace physiologic free fluid. No loculated collection. Lymph nodes: No adenopathy. GI tract: No bowel wall thickening or dilatation. No adjacentinflammation. Reproductive structures: Again noted is a multifibroid uterus withmultiple T2 hypointense enhancing intramural fibroids. The dominant lesions arelocated along the posterior wall and fundus and has intervally increased in size compared to 2020. The largest fibroid now measures 6.5 cm compared to 5.7cm previously. Normal right ovary. The left ovary is partially visualizedand unremarkable. Osseous structures: Normal marrow signal. Unchanged cyst at the tip ofthe coccyx, possible inclusion or pilonidal cyst that is likelynoncontributory to the patient's symptoms. IMPRESSION 1. No anal or rectovaginal fistula. 2. Multi fibroid uterus with interval enlargement of the multipleintramural fibroids involving the posterior wall. I have personally reviewed the image(s) and the resident's interpretationand agree with the findings, Vikas August MD at 01/22/2022 10:57 AM Thank you for letting us participate in the care of this patient. If youare a health care provider and have any questions regarding this report,please contact the number below. For patients who have questions please contactthe health career technical counselor that requested your imaging first. Damaris May MD IMG MRI ORDERABLES documented in this encounter Visit Diagnoses Diagnosis Crohn's disease of perianal region with complication documented in this encounter Administered Medications Inactive Administered Medications - up to 3 most recent administrations Medication Order MAR Action Action Date Dose Rate Site gadoterate meglumine (Dotarem) (0.5 mMol/mL) injection solution 0-100 mL 0-100 mL, Intravenous, ONCE PRN, 1 dose, Starting on Veronica 01/22/22 at 0644, Until Veronica 01/22/22 at 0644, Per Protocol, Radiology Contrast, Routine Given 01/22/2022 6:44 AM EDT 13 mLs documented in this encounter Care Teams Hvac Sheet Metal Installer Helper Relationship Specialty Start Date End Date None None PCP - General 09/08/21 documented as of this encounter
--- OUTSIDE RECORDS SUMMARY | 2023-10-14 01:03 | XMS_ITS | Encounter Summary ---
Author Organization [facility] [place] [address] Care Team Providers Care Distribution Systems Serviceperson Name Role Phone None Primary Care Provider Unavailabl e Reason for Visit * Reason Onset Date Comments Abdominal Pain 09/16/2022 Encounter Details Date Type Department Care Team (Late st Contact Info) Description 09/16/2022 Telephone [place] [phone] Kulwant Mcgrath MD [facility] [place] [address] Abdominal Pain Social History Tobacco Use Types Packs/Day Years [...] encounter Miscellaneous Notes * Telephone Encounter - Kulwant Mcgrath MD - 09/16/2022 8:05 AM EDT Received page at [phone] 09/16/22 Returned call to pt and her mother. Pt was discharged yesterday (09/15/22) after uterine artery embolization on Wednesday (09/14/22). Pt had pain well controlled with oral meds at the hospital, but since discharge pt feels her abdominal pain is not controlled with oral oxycodone. She is take 5 mg every 3-4 hours. No fevers or chills. Pt has not been taking anything but the oxycodone. She does have tylenol at home and no contraindications for taking it. We discussed taking 1000 mg of tylenol every 8 hours on top of the oxycodone. This may help control her pain. Recommended reaching out to IR if thepain is not well controlled or any change in symptoms. Pt and her mother agreed to think plan. Christina Simpson MD PGY-3 Pager #[phone] Department of Radiology [facility] 09/16/2022 documented in this encounter Plan of Treatment Scheduled Procedures Name Priority Associated Diagnoses Date/Ti me COLONOSCOPY, DIAGNOSTIC (WRV U 3.26) Crohn's disease of small intestine with other complication documented as of this encounter Visit Diagnoses Not on filedocumented in this encounter Care Teams Distribution Systems Serviceperson Relationship Specialty Start Date End Date None None PCP - General 09/08/21 documented as of this encounter
--- OUTSIDE RECORDS SUMMARY | 2023-10-14 01:03 | XMS_ITS | Encounter Summary ---
Author Organization [facility] [facility] [place] [address] Care Team Providers Care Frame Repairer Name Role Phone None Primary Care Provider Unavailabl e Reason for Referral * Consultation (Routine) - Closed Specialty Diagnoses / Procedures Referred By Contac t Referred To Contact Interventional Radiology Diagnoses Abnormal uterine bleeding Intramural leiomyoma of uterus Chronic pelvic pain in female Sil Hardy MD [facility] [address] OBSTET[place] [address] [facility] Interv Rad [address] [place] [address] Referral ID Status Reason Start Date Expiration Date V isits Requested Visits Authorized [id number] Closed Specialty Service Requested 04/16/2022 04/16/2023 1 1 Reason for Visit * Consultation (Routine) - Closed Specialty Diagnoses / Procedures Referred By Contac t Referred To Contact Obstetrics and Gynecology Diagnoses Uterine leiomyoma, unspecified location Crohn's disease with complication, unspecified gastrointestinal tract location Lynn Cedeño, [address] [place] [address] [facility] Medical Program Specialist [address] [place] [address] Referral ID Status Reason Start Date Expiration Date V isits Requested Visits Authorized [id number] Closed Consult, Test & Treat PCP Updated and/or Approved 02/20/2022 02/20/2023 6 6 Encounter Details Date Type Department Care Team (Late st Contact Info) Description 04/16/2022 8:00 AM EST TH Visit (TeleHealth) Obstetrics [place] [address] Sil Hardy MD [facility] [address] OBSTETRICS [place] [address] Intramural leiomyoma of uterus (Primary Dx); Abnormal uterine bleeding; Chronic pelvic pain in female Social History Tobacco Use Types Packs/Day Years [...] as of this encounter Patient Instructions * Attachments The following attachments cannot be sent through Care Everywhere. * Uterine Fibroid Embolization: Pre-op ([place]) documented in this encounter Progress Notes * Nilda Almanza CCMA - 04/16/2022 8:00 AM EST _x___ Patient not reached - left message 04/10/22 ____Patient reached and the following information was reviewed/obtained per protocol. ___Confirmed patient name and date of ___Confirmed tele med appt (Virtual visit) is downloaded and functioning ___Confirmed location of patient- TeleVisit is taking place in [place]__ [place]__ If not on [facility], working on signing up for my Confirmed has completed any pre-visit questionnaires If has not received required previsit questionnaires, send via [facility] ___Reviewed medications, allergies, pharmacy, pain/depression, education ___Documented height/weight/LMP Other information or concerns: * Sil Hardy MD - 04/16/2022 8:00 AM EST Department of Obstetrics and Gynecology Sil Hardy MD Referring Provider: Lynn Cedeño DO [address] [place] [address] [place] [address] MANAGER OF EMPLOYEE RELATIONS Telehealth New Patient Visit Reason for Visit: Wilfredo is a 36 y.o. pre-menopausal female who presents for a new patient visit with the following complaints/concerns: fibroids, abnormal uterine bleeding painful periods History of Present Illness: She reports periods have always been heavy but worse the last few years. First few days bleeds through an overnight pad in an hour. Changes multiple times per night. Has been taking iron pills because she is anemic. Hasn't tried anything for the bleeding. Does have vulvar crohn's for which she is on remicade. When she had an MRI done they found fibroids. Is considering future but not sure. Not planning in the next 6 months, but maybe next year. Doesn't want a hysterectomy. Wants least surgery possible. Also doesn't want to take anymore medications because she is already on medications for crohn's. One TAB. No surgeries in the past. No fistulas on MRI from crohn's. Occasional bleeding from Crohn's, does have chalo-anal but no fistulas or specific treatments for Crohn's complications. Does note vaginal discharge. No new partners. Has discharge after her period - no odor - lasts for 2 days. Clear to yellow, just for 2 days after her period. Patient Active Problem List Diagnosis Date Noted ??? Crohn's disease of perianal region with complication 09/08/2021 ??? Crohn's disease of small intestine with other complication 09/08/2021 ??? 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 Past Surgical History: Procedure Laterality Date ??? PRO COLONOSCOPY, BIOPSY N/A 01/31/2021 COLONOSCOPY FLEXIBLE, WITH BX (WRVU 3.66) performed by Damaris May MD at [facility] ENDOSCOPY ??? PRO COLONOSCOPY, DIAGNOSTIC N/A 01/31/2021 COLONOSCOPY, DIAGNOSTIC performed by Damaris May MD at [facility] ENDOSCOPY No family history on file. OB History No obstetric history on file. Current Outpatient Medications Medication Sig Dispense Refill ??? mercaptopurine (Purinethol) 50 mg tablet TAKE ONE-HALF TABLET BY MOUTH EVERY DAY FOR CROHNS DISEASE Indications: Crohn's disease 45 tablet 3 ??? lidocaine/hydrocortisone ac (lidocaine HCl-hydrocortison ac) 2 %-2 % (7 gram) Kit Place 1 Application rectally 2 times daily as needed (perianal pain). Apply pea sized amount to affected perianalarea twice daily as needed x 4 weeks (Patient not taking: Reported on 09/08/2021) 1 kit 0 ??? NIFEdipine, Bulk, Powder 0.2% in aquaphor or plastibase. Apply pea size amount twice daily x 6 weeks (Patient not taking: Reported on 09/08/2021) 100 g 1 ??? tacrolimus (Protopic) 0.1 % Ointment Apply to external anal fissure twice daily x 8 weeks (Patient not taking: No sig reported) 60 g 0 No current facility-administered medications for this visit. No Known Allergies Physical Exam Last Set of Vitals: There were no vitals taken for this visit. Physical Exam: Not done, telehealth Imaging MRI pelvis 01/22/22: FINDINGS: Anal fistula: None. Ischioanal fossa: Normal signal; no fluid collection. Peritoneum: Trace physiologic free fluid. No loculated collection. ?? Lymph nodes: No adenopathy. GI tract: No [...] left ovary is partially visualized and unremarkable. ?? Osseous structures: Normal marrow signal. Unchanged cyst at the tip of the coccyx, possible inclusion or pilonidal cyst that is likely noncontributory to the patient's symptoms. ?? IMPRESSION ?? 1. No anal or rectovaginal fistula. 2. Multi fibroid uterus with interval enlargement of the multiple intramural fibroids involving the posterior wall. Pelvic ultrasound 05/02/21: Uterus anteverted 9.2 x 8.2 x 8.8cm, endometrium 0.8cm Three fibroids, largest left body 2.5 x 5 x 5.6cm. Smaller in fundus 1.8 x 2.1cm. there is a 3 x 3cm fibroid in the right aspect of the uterine fundus. Normal R and L ovaries Assessment/Plan: Wilfredo is a 36 y.o. pre-menopausal female who presents for a new patient visit with the following complaints/concerns: abnormal uterine bleeding, pelvic pain and fibroids. - We reviewed the treatment options for fibroids/abnormal uterine bleeding including scheduled ibuprofen, TXA, OCP's, POP's, IUD, nexplanon, depo, lupron, hysteroscopic myomectomy, laparoscopic/open myomectomy, UAE/UFE, radiofrequency ablation and hysterectomy. She declines any additional medications. We reviewed that after a myomectomy, would likely need to wait a year before getting . We reviewed that there is not a lot of evidence about the safety of after UAE/UFE, but there have been cases of successful and it is no longer considered a contraindication by all radiologists. We reviewed that is contraindicated after radiofrequency ablation. After our d iscussion, she desires referral to IR to further discuss UAE/UFE. She will also call [facility] to see about the possibility of a robotic or laparoscopic myomectomy. I provided care to the patient today via telehealth TO. The patient voiced an understanding of thereason and intent of the visit and consented to having their visit completed over telehealth. The patient was counseled about limitations of telehealth visits compared to in person visits for some diagnoses and indications. Patient physically in MD at time of this visit. I spent 50 minutes on this visit including time with the patient and pre-/post-visit planning for the management of MANAGER OF EMPLOYEE RELATIONS care. Sil Hardy MD documented in this encounter Plan of Treatment [...] of this encounter Visit Diagnoses Diagnosis Intramural leiomyoma of uterus- Primary Abnormal uterine bleeding Unspecified disorder of menstruation and other abnormal bleeding from female genital tract Chronic pelvic pain in female Unspecified symptom associated with female genital organs documented in this encounter Care Teams Frame Repairer Relationship Specialty Start Date End Date None None PCP - General 09/08/21 documented as of this encounter
--- OUTSIDE RECORDS SUMMARY | 2023-10-14 01:03 | XMS_ITS | Encounter Summary ---
Author Organization [facility] Address [address] [place] [address] Care Team Providers Care Curtain Worker Name Role Phone None, Provider Primary Care Provider Unavailabl e Unknown, Provider MD Unavailable Encounter Details Date Type Department Care Team (Late st Contact Info) Description 09/03/2022 Lab Requisition [facility] Medicine - [address] [address] Outr Resulting Lab, Provider Social History Tobacco [...] Procedure Name Priority Date/Time Associated Diagnosis Comments LH Routine 09/03/2022 11:17 EDT FSH Routine 09/03/2022 11:17 EDT documented in this encounter Results * LH (09/03/2022 11:17 EDT) Luteinizing Hormone 5.1 See Note mIU/mL 09/03/2022 19:04 EDT [facility] Comment: NOTE: Female Reference Ranges: Pre-Pubertal: ?<6.0 mIU/mL Menstruating: Follicular Phase(-12 to -4 days: ??1.9 - 12.5 mIU/mL Midcycle(-3 to +2 days): ?8.7 - 76.3 mIU/mL Luteal Phase(+4 to +12 days): ? 0.5 - 16.9 mIU/mL Post Menopausal: 15.9 - 54.0 mIU/mL Blood VENOUS BLOOD / Unknown 09/03/2022 11:17 EDT 09/03/2022 18:07 EDT Provider Outr Resulting Lab CHEMISTRY & BLOOD GAS ORDERABLES [facility] [address] [place] [address] * FSH (09/03/2022 11:17 EDT) [facility] FSH 7.0 See Note mIU/mL 09/03/2022 19:04 EDT [facility] Blood VENOUS BLOOD / Unknown 09/03/2022 11:17 EDT 09/03/2022 18:07 EDT Narrative [facility] - 09/03/2022 19:04 EDT NOTE: Female FSH Reference Ranges (Menstruating): PHYSIOLOGICAL STATUS ? REFERENCE RANGE ? Follicular (-12 to -4 days): ?? 2.5 - 10.2 mIU/mL Midcycle (-3 to +2 days): ?3.4 - 33.4 mIU/mL Luteal (+4 to +12 days): ? 1.5 - 9.1 mIU/mL Postmenopausal: ?23.0 - 116.3 mIU/mL Reference Ranges for pediatric non-menstruating female patients have not been established. Provider Outr Resulting Lab CHEMISTRY & BLOOD GAS ORDERABLES [facility] [address] [place] [address] documented in this encounter Visit Diagnoses Not on filedocumented in this encounter Care Teams Curtain Worker Relationship Specialty Start Date End Date None, Provider PCP - General 09/20/19 Unknown, Provider, 09/20/19 documented as of this encounter
--- OUTSIDE RECORDS SUMMARY | 2023-10-14 01:03 | XMS_ITS | Encounter Summary ---
Author Organization [facility] [place] [address] Care Team Providers Care Transit Bus Driver Name Role Phone None Primary Care Provider Unavailabl e Encounter Details Date Type Department Care Team (Late st Contact Info) Description 04/13/2022 Telephone [place] [phone] Sarbjit Morales RN Social History Tobacco Use Types Packs/Day [...] encounter Miscellaneous Notes * Telephone Encounter - Sarbjit Morales RN - 04/13/2022 3:00 PM EST Wilfredo calls Stopped 6MP the last week of February. Had been losing a lot of hair for some time and thought it might be caused by 6MP since hair loss began around the time she started 6MP. Hasn't noticed a difference yet. Has not discuss hair loss with PCP or dermatology yet. Wants to be sure it's safe for her to continue Remicade even if off 6MP. Wonders if she should still do stool calprotectin, IgA, and TTG testing. Also notes she is going to be scheduled for surgery for a uterine fibroid. Advised her please get infusion and labs as planned. Safe to get even though not on 6MP. She can discuss at upcoming visit with Dr. May on 05/18/22 The patient indicates understanding of these issues and agrees with the plan. documented in this encounter Plan of Treatment Scheduled Procedures Name Priority Associated Diagnoses Date/Ti me COLONOSCOPY, DIAGNOSTIC (WRV U 3.26) Crohn's disease of small intestine with other complication documented as of this encounter Visit Diagnoses Not on filedocumented in this encounter Care Teams Transit Bus Driver Relationship Specialty Start Date End Date None None PCP - General 09/08/21 documented as of this encounter
--- OUTSIDE RECORDS SUMMARY | 2023-10-14 01:03 | XMS_ITS | Encounter Summary ---
Author Organization [facility] [place] [address] Care Team Providers Care Zig Zag Stitcher Name Role Phone None Primary Care Provider Ladan e Encounter Details Date Type Department Care Team (Late st Contact Info) Description 09/16/2022 [place] [id number] Damaris Escobar PA [facility] [place] [address] Social History Tobacco Use Types Packs/Day Years [...] of this encounter Progress Notes * Damaris Escobar PA - 09/16/2022 10:10 AM EDT RADIOLOGY TELEPHONE NOTE Patient: Wilfredo Niño : 1985 Person Placing Call: Patient Person Receiving Call: MIGUEL Robles Date of call: 09/16/2022 Time of call: 10:20AM Recent Procedure: Bilateral uterine artery embolization (09/14) Reason for call: Pain not relieved by oxycodone (See Dr. Simpson's note from earlier this morning) Patient reports she tried taking extra strength Tylenol in addition to the 5mg oxycodone this morning and her pain improved slightly, but not completely. She described the pain as crampy lower abdominal pain and consistent throughout the day, worse atnight. Patient was originally prescribed 12 tablets of 5mg oxycodone (2 day's worth) but only has 4tablets left. She took 10mg last night to help her sleep. She has requested a few more tablets to get her through the next few days. Additionally, her antibiotics were sent to the wrong pharmacy, so the Doxycycline was sent to her preferred pharmacy today, with instructions to start taking today, for a total of 5 days. She denies any nausea, vomiting, fever, chills, or any other concerning symptoms. Assessment: Expected post procedural pain from bilateral UAE Plan/Instructions: -Patient was instructed to continue taking 1000mg Tylenol every 6-8 hours PRN (not to exceed 4000mgin a 24 hour period) in addition to the oxycodone 5mg every 4 hours PRN. -An extra 10 tablets of Oxycodone was prescribed and sent to preferred Pharmacy. -Can also try warm compress at night to help relieve abdominal pain. -Patient was instructed to call us back if pain does not improve with current regimen by Wednesday. -She was in agreement with above plan and knows to call IR with any new symptoms or concerns, or ifshe develops worsening pain despite making the above changes. Damaris Escobar PA-C Interventional Radiology documented in this encounter Plan of Treatment Scheduled Procedures Name Priority Associated Diagnoses Date/Ti me COLONOSCOPY, DIAGNOSTIC (WRV U 3.26) Crohn's disease of small intestine with other complication documented as of this encounter Visit Diagnoses Not on filedocumented in this encounter Care Teams Zig Zag Stitcher Relationship Specialty Start Date End Date None None PCP - General 09/08/21 documented as of this encounter
--- OUTSIDE RECORDS SUMMARY | 2023-10-14 01:03 | XMS_ITS | Encounter Summary ---
Author Organization [facility] [place] [address] Care Team Providers Care Account Auditor Name Role Phone None Primary Care Provider Unavailabl e Encounter Details Date Type Department Care Team (Latest Contact Info) Description 01/22/2022 Travel Social History Tobacco Use Types Packs/Day [...] on filedocumented in this encounter Care Teams Account Auditor Relationship Specialty Start Date End Date None None PCP - General 09/08/21 documented as of this encounter
--- OUTSIDE RECORDS SUMMARY | 2023-10-14 01:03 | XMS_ITS | Encounter Summary ---
Author Organization [facility] Address [address] [place] [address] Care Team Providers Care Commutator Undercutter Name Role Phone None, Provider Primary Care Provider Unavailabl e Unknown, Provider MD Unavailable Encounter Details Date Type Department Care Team (Late st Contact Info) Description 01/23/2021 Lab Requisition [facility] Pathology & Laboratory Medicine - [address] [id number] Outr Resulting Lab, Provider Social History Tobacco [...] Procedure Name Priority Date/Time Associated Diagnosis Comments HERPES SIMPLEX VIRUS (HSV) TYPE 1 & 2 AB, IGG Routine 01/23/2021 7:48 EDT documented in this encounter Results * HERPES SIMPLEX VIRUS (HSV) TYPE 1 & 2 AB, IGG (01/23/2021 7:48 EDT) HSV Type 1 Ab, IgG Negative Negative 01/24/2021 12:29 EDT [facility] Comment: No detectable antibodies to HSV 1 were found. A negative result generally indicates that the patient has not been infected, but does not always rule out acute HSV infection. If clinical exposure to HSV is suspected despite a negative finding a second sample should be collected and tested no less than 4-6 weeks later. HSV Type 2 Ab, IgG Negative Negative 01/24/2021 12:29 EDT [facility] Comment: No detectable antibodies to HSV 2 were found. A negative result generally indicates that the patient has not been infected, but does not always rule out acute HSV infection. If clinical exposure to HSV is suspected despite a negative finding a second sample should be collected and tested no less than 4-6 weeks later. Blood VENOUS BLOOD / Unknown 01/23/2021 7:48 EDT 01/23/2021 16:19 EDT Provider Outr Resulting Lab IMMUNOLOGY A ND SEROLOGY ORDERABLES [facility] [address] [place] [address] documented in this encounter Visit Diagnoses Not on filedocumented in this encounter Care Teams Commutator Undercutter Relationship Specialty Start Date End Date None, Provider PCP - General 09/20/19 Unknown, Provider, 09/20/19 documented as of this encounter
--- OUTSIDE RECORDS SUMMARY | 2023-10-14 01:03 | XMS_ITS | Encounter Summary ---
Author Organization [facility] [place] [address] Care Team Providers Care Fitness/Wellness Director Name Role Phone None Primary Care Provider Unavailabl e Encounter Details Date Type Department Care Team (Latest Contact Info) Description 09/14/2022 Travel Social History Tobacco Use Types Packs/Day [...] on filedocumented in this encounter Care Teams Fitness/Wellness Director Relationship Specialty Start Date End Date None None PCP - General 09/08/21 documented as of this encounter
--- OUTSIDE RECORDS SUMMARY | 2023-10-14 01:03 | XMS_ITS | Encounter Summary ---
[place] [address] Care Team Providers Care Fabric Worker Foreman Name Role Phone None Primary Care Provider Unavailabl e Reason for Referral * Consultation (Routine) - Closed Specialty Diagnoses / Procedures Referred By Contashley t Referred To Contact Obstetrics and Gynecology Diagnoses Uterine leiomyoma, unspecified location Crohn's disease with complication, unspecified gastrointestinal tract location Lynn Cedeño DO [address] [place] [address] [place] [address] [facility] Pneumatic Tool Repairer [address] [place] [address] Referral ID Status Reason Start Date Expiration Date V isits Requested Visits Authorized [id number] Closed Consult, Test & Treat PCP Updated and/or Approved 02/20/2022 02/20/2023 6 6 Encounter Details Date Type Department Care Team (Latest Contact Info) Description 02/20/2022 Transcribe Orders eDH Incoming Referrals [phone] Lynn Cedeño DO [address] [facility] [address] [place] [id number] Uterine leiomyoma, unspecified location; Crohn's disease with complication, unspecified gastrointestinal tract location Social History Tobacco Use Types Packs/Day Years [...] Scheduled Referrals Name Type Priority Associated Diagnoses Orde r Schedule Referral to Ob-Refrigerator Cabinetmaker Outpatient Referral Routine Uterine leiomyoma, unspecified location Crohn's disease with complication, unspecified gastrointestinal tract location Ordered: 02/20/2022 documented as of this encounter Visit Diagnoses Diagnosis Uterine leiomyoma, unspecified location Crohn's disease with complication, unspecified gastrointestinal tract location documented in this encounter Care Teams Fabric Worker Foreman Relationship Specialty Start Date End Date None None PCP - General 09/08/21 documented as of this encounter
--- OUTSIDE RECORDS SUMMARY | 2023-10-14 01:03 | XMS_ITS | Continuity of Care Document ---
Author Organization [facility] Address [address] [place] [address] Encounter [facility] NBR [id number] Date(s): 10/06/22 - 10/06/22 [facility] [address], [place] [address] Encounter Diagnosis Rhytides(Discharge Diagnosis) - 10/01/22 Discharge Disposition: Home or Self Care Attending Physician: Topher Valentin DO Allergies, Adverse Reactions, Alerts No Known Medication Allergies Medications biotin 10 mg oral tablet 10 mg = 1 tab, Oral, Daily, # 30 tab, 0 Refill(s) Start Date: 10/01/22 Status: Ordered mercaptopurine 50 mg oral tablet 150 mg = 3 tab, Oral, Daily, # 90 tab, 0 Refill(s) Start Date: 10/01/22 Status: Ordered Vitamin C 500 mg oral tablet 500 mg = 1 tab, Oral, Daily, # 30 tab, 0 Refill(s) Start Date: 10/01/22 Status: Ordered Vitamin D with Minerals oral tablet 1 tab, Oral, Daily, # 30 tab, 0 Refill(s) Start Date: 10/01/22 Status: Ordered Problem List Condition Confirmation Course Effective Dates Status Health St atus Informant Anxiety Confirmed Active Social History Social History Type Response Sex Female Physician Outpatient Note * Topher Valentin DO: PERFORM, MODIFY Event Display: Office Clinic Note Physician Authored Date: [id number] JOE HI :1985 Age:37 years Sex:Female Visit Date:10/06/2022 Chief Complaint Established- C-Botox History of Present Illness Established patient in the office today for cosmetic Botox. Patient was last treated 10/07/21 for her forehead wrinkles. Review of Systems Negative for: no new cardiac, respiratory, GI, , hematologic, neurologic, psychological, allergic, traumatic or endocrine problems except as listed above Physical Exam GENERAL APPEARANCE:??The patient is awake, alert, and oriented and in no acute distress, Appears nutritionally sound, Healthy in appearance, Voice is strong, with no stridor or stertor, Handling secretions without difficulty.?PSYCH:??affect normal, good eye contact, oriented to person, oriented to place, oriented to time.?NEURO:??CN's II-XII grossly intact, Gait is normal, The patient has endpoint nystagmus only.?HEENT:??The patient is normocephalic with a normal facies with cranial nerves 2 through 12 bilaterally equal and intact. Pupils are equal and reactive to light with extraocular movements bilaterally equal and intact. There is no proptosis or enophthalmos, ?HEART:??regular rate and rhythm.?LUNGS:??clear to auscultation bilaterally, no wheezes/rhonchi/rales.?SKIN:??normal across the head and neck.?MUSCULOSKELETAL:??normal gait and station.?? Procedure Botox:?? Botox??The patient was placed in the facial plastic procedure room. Written consent was obtained for Botox administration with review of the risks and complications. The patient is feeling well todayand has no complaints. The patient is placed in a semi-supine position on the treatment table with the exam room door open. The skin was wiped with alcohol. 30 Units of botulinum toxin were injected into the treatment areas of facial rhytids as requested by the patient. The procedure was free of complications and the patient was able to ambulate with stability,there was no bleeding upon completion of the procedure. The patient is encouraged to call with post- procedure questions. ?? Assessment/Plan 1.??Rhytides??L98.8 Images botox $350 Problem List/Past Medical History Ongoing Anxiety Historical No qualifying data Medications biotin 10 mg oral tablet, 10 mg= 1 tab, Oral, Daily mercaptopurine 50 mg oral tablet, 150 mg= 3 tab, Oral, Daily Remicade 100 mg intravenous injection, 3 mg/kg, IV, Once Vitamin C 500 mg oral tablet, 500 mg= 1 tab, Oral, Daily Vitamin D with Minerals oral tablet, 1 tab, Oral, Daily Allergies No Known Medication Allergies Electronically Signed on 10/06/22 04:03 PM Topher Valentin, DO
--- OUTSIDE RECORDS SUMMARY | 2023-10-14 01:04 | XMS_ITS | Encounter Summary ---
[place] [address] Care Team Providers Care Other Wood Processing Machine Operator Name Role Phone Maria Dolores Delong MD Primary Care Provider [phone] Encounter Details Date Type Department Care Team (Late st Contact Info) Description 12/06/2020 Telephone [place] [id number] Damaris Trimble MD [facility] [place] [address] Social History Tobacco Use Types Packs/Day Years Used Date Smoking Tobacco: Former Cigarettes Smokeless Tobacco: Never Sex and Gender Information Value Date Recorded Sex Assigned at Female 01/20/2021 12:59 PM EDT Gender Identity Female 01/20/2021 12:59 PM EDT Sexual Orientation Straight 01/20/2021 12 :59 PM EDT documented as of this encounter Miscellaneous Notes * Telephone Encounter - Damaris Trimble MD - 12/06/2020 5:26 PM EDT I called to speak with Wilfredo regarding her recent biopsies. No answer. Left a message and will try her over the weekend/Wednesday. Damaris Trimble MD FACS [employer] electronics computer mechanic Division of Colon and Rectal Surgery [facility] Pager [phone] documented in this encounter Plan of Treatment Scheduled Procedures Name Priority Associated Diagnoses Date/Ti me COLONOSCOPY, DIAGNOSTIC (WRV U 3.26) Crohn's disease of small intestine with other complication documented as of this encounter Visit Diagnoses Not on filedocumented in this encounter Care Teams Other Wood Processing Machine Operator Relationship Specialty Start Date End Date Maria Dolores Delong MD [facility] [address] [facility] [place] [address] PCP - General 02/11/10 09/07/21 documented as of this encounter
--- OUTSIDE RECORDS SUMMARY | 2023-10-14 01:04 | XMS_ITS | Encounter Summary ---
Author Organization [facility] [place] [address] Care Team Providers Care Floor Grinder Name Role Phone None Primary Care Provider Unavailabl e Encounter Details Date Type Department Care Team (Late st Contact Info) Description 01/09/2022 Orders Only Gastroenterology at [facility] [place] [address] Damaris May MD [facility] [place] [address] Crohn's disease of small intestine with other complication; Crohn's disease of perianal region with complication Social History Tobacco Use Types Packs/Day Years [...] encounter Visit Diagnoses Diagnosis Crohn's disease of small intestine with other complication Crohn's disease of perianal region with complication documented in this encounter Care Teams Floor Grinder Relationship Specialty Start Date End Date None None PCP - General 09/08/21 documented as of this encounter
--- OUTSIDE RECORDS SUMMARY | 2023-10-14 01:04 | XMS_ITS | Encounter Summary ---
Author Organization [facility] [place] [address] Care Team Providers Care Coin Purse Assembler Name Role Phone Maria Dolores Delong MD Primary Care Provider [phone] Reason for Visit * Reason Onset Date Comments Reminder Appointment 03/03/2021 Encounter Details Date Type Department Care Team (Late st Contact Info) Description 03/03/2021 Telephone [place] [address] Nichole Ivan CCMA Reminder Appointment Social History Tobacco Use Types Packs/Day Years [...] encounter Miscellaneous Notes * Telephone Encounter - Nichole Ivan CCMA - 03/03/2021 9:28 AM EST Called patient to review medications and allergies for their upcoming gastroenterology Type of Appointment: Telehealth appointment. Reach Patient during MA Check: Yes Notes for the provider: Notes for the nurse: documented in this encounter Plan of Treatment Scheduled Procedures Name Priority Associated Diagnoses Date/Ti me COLONOSCOPY, DIAGNOSTIC (WRV U 3.26) Crohn's disease of small intestine with other complication documented as of this encounter Visit Diagnoses Not on filedocumented in this encounter Care Teams Coin Purse Assembler Relationship Specialty Start Date End Date Maria Dolores Delong MD [facility] [place] [address] PCP - General 02/11/10 09/07/21 documented as of this encounter
--- OUTSIDE RECORDS SUMMARY | 2023-10-14 01:04 | XMS_ITS | Encounter Summary ---
Author Organization [facility] [place] [address] Care Team Providers Care Charge Entry Specialist Name Role Phone None Primary Care Provider Unavailabl e Encounter Details Date Type Department Care Team (Late st Contact Info) Description 09/10/2021 Telephone [place] [phone] Jacklyn Morgan RN Social History Tobacco Use Types Packs/Day [...] Telephone Encounter - Irene Landis RN - 09/25/2021 4:32 PM EDT Approved 09/10/21-12/11/21 # [id number] 600mg every 8 weeks approved for 3 months contingent upon documentation showing improvement in symptoms. * Telephone Encounter - Jacklyn Morgan RN - 09/10/2021 9:59 AM EDT Prior Authorization ?? Facility:??[facility] TIN:??[id number] NPI:??[id number] [place] Medicaid ID# for facility:?[id number] ?? Medication:??Remicade J-code:??[id number] Dosage:??600 mg Frequency & Route:?every 8 weeks Insurance & Phone #:??[place] medicaid ID #:??[id number] Trialed (dosage, frequency):??budesonide, 6MP Diagnosis/ICD-10:?new dx crohns Notes: form and office notes faxed, marked as urgent documented in this encounter Plan of Treatment Scheduled Procedures Name Priority Associated Diagnoses Date/Ti me COLONOSCOPY, DIAGNOSTIC (WRV U 3.26) Crohn's disease of small intestine with other complication documented as of this encounter Visit Diagnoses Not on filedocumented in this encounter Care Teams Charge Entry Specialist Relationship Specialty Start Date End Date None None PCP - General 09/08/21 documented as of this encounter
--- OUTSIDE RECORDS SUMMARY | 2023-10-14 01:04 | XMS_ITS | Encounter Summary ---
Author Organization [facility] [place] [address] Care Team Providers Care Rim Roller Operator Name Role Phone Maria Dolores Delong MD Primary Care Provider [phone] Encounter Details Date Type Department Care Team (Latest Contact Info) Description 01/31/2021 11:57 AM EST - 01/31/2021 2:26 PM EST Hospital Encounter [place] [address] Damaris May MD [facility] [place] [address] Discharge Disposition: Home Social History Tobacco Use [...] Sign Reading Time Taken Comments Blood Pressure 116/81 01/31/2021 2:10 PM EST Pulse 79 01/31/2021 2:02 PM EST Temperature 37.3 ??C (99.1 ??F) 01/31/2021 12:[address] Respiratory Rate 18 01/31/2021 2:10 PM EST Oxygen Saturation 100% 01/31/2021 2:10 PM EST Inhaled Oxygen Concentration - - Weight 62.1 kg (137 lb) 01/31/2021 12:33 PM EST Height - - Body Mass Index 23.52 11/29/2020 10:58 AM EDT documented in this encounter Discharge Instructions * Discharge Instructions* Wolf Ordaz RN - 01/31/2021 2:03 PM EST Colonoscopy: What to Expect at Home Your Recovery Your doctor will talk to you about when you will need your next colonoscopy. Your doctor can help you decide how often you need to be checked. This will depend on the results of your test and your risk for colorectal cancer. After the test, you may be bloated or have gas pains. You may need to pass gas. If a biopsy was done or a polyp was removed, you may have streaks of blood in your stool (feces) for a few days. Problems such as heavy rectal bleeding may not occur until several weeks after the test. This isn't common. But it can happen after polyps are removed. This care sheet gives you a general idea about how long it will take for you to recover. But each person recovers at a different pace. Follow the steps below to get better as quickly as possible. How can you care for yourself at home? Activity Rest when you feel tired. ?? You can do your normal activities when it feels okay to do so. Diet ?? Follow your doctor's directions for eating. ?? Unless your doctor has told you not to, drink plenty of fluids. This helps to replace the fluidsthat were lost during the colon prep. ?? Do not drink alcohol. Medicines ?? Your doctor will tell you if and when you can restart your medicines. He or she will also give you instructions about taking any new medicines. ?? If you take blood thinners, such as warfarin (Coumadin), clopidogrel (Plavix), or aspirin, be sure to talk to your doctor. He or she will tell you if and when to start taking those medicines again. Make sure that you understand exactly what your doctor wants you to do. ?? If polyps were removed or a biopsy was done during the test, your doctor may tell you not to take aspirin or other anti-inflammatory medicines for a few days. These include ibuprofen (Advil, Motrin) and naproxen (Aleve). Other instructions ?? For your safety, do not drive or operate machinery until the medicine wears off and you can think clearly. Your doctor may tell you not to drive or operate machinery until the day after your test. ?? Do not sign legal documents or make major decisions until the medicine wears off and you can think clearly. The anesthesia can make it hard for you to fully understand what you are agreeing to. Additional Information for Sedation Patients For patients who received sedation: ?? You may have received medications before and/or during your procedure which effects your judgement and reaction time. ?? Do not drive, operate machinery, drink alcoholic beverages or make important decisions for 24 hours. ?? Be careful on stairs as you may be unsteady on your feet. ?? You may eat a regular diet as tolerated. ?? Do not smoke if you are alone. ?? IV site: Slight redness or tenderness is normal, you can use a warm compress if you would like. If tenderness and/or redness increase or if foul drainage occurs, please contact your Doctor. Please call [phone] before 8pm Mon-Fri with problems, questions or concerns. If you call after 8pm or on weekends, call the Hospital at [phone] and ask to speak to the Manager Wound information assurance and the tool grinder operator will contact that person for you. When should you call for help? Call [phone] anytime you think you may need emergency care. For example, call if: ?? You passed out (lost consciousness). ?? You pass maroon or bloody stools. ?? You have trouble breathing. Call your doctor now or seek immediate medical care if: ?? You have pain that does not get better after you take pain medicine. ?? You are sick to your stomach or cannot drink fluids. ?? You have new or worse belly pain. ?? You have blood in your stools. ?? You have a fever. ?? You cannot pass stools or gas. Watch closely for changes in your health, and be sure to contact your doctor if you have any problems. Where can you learn more? [email or web address] View your After Visit Summary and more online at [email or web address] If you would like to provide feedback about your hospital experience, please call the Office of Patient and Family Relations at . If you have received this After Visit Summary in error, please immediately return it in person to the department, or notify the [facility] Privacy Office by calling toll free at between the hours of 8AM and 5PM to arrange for our retrieval of the documents at no cost to you. Content Version: 12.2 ?? [id number] bookjam. Care instructions adapted under license by [facility]. If you have questions about a medical condition or this instruction, always ask your healthcare professional. bookjam disclaims any warranty or liability for your use of this information. documented in this encounter Medications at Time of Discharge Medication Sig Dispensed Refills Start Date End Date NIFEdipine, Bulk, Powder 0.2% in aquaphor or plastibase. Apply pea size amount twice daily x 6 weeks 100 g 1 01/21/2021 02/06/2021 documented as of this encounter H&P Notes * Damaris May MD - 01/31/2021 1:07 PM EST Patient Name: Wilfredo Niño Patient Age: 35 y.o. Birthdate: 1985 Admit date: 01/31/2021 Attending Physician: Damaris May MD Gastroenterology and Hepatology Pre-Procedure History and Physical Exam Procedure: Colonoscopy: Indication: suspected perianal Crohn's Patient Active Problem List Diagnosis Code ??? 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 ASA 2 - Patient with mild systemic disease with no functional limitations Sedation Plan: moderate (conscious sedation) Risks and benefits of the procedure explained to the patient. Consent signed. documented in this encounter Plan of Treatment Scheduled Procedures Name Priority Associated Diagnoses Date/Ti me COLONOSCOPY, DIAGNOSTIC (WRV U 3.26) Crohn's disease of small intestine with other complication documented as of this encounter Procedures Procedure Name Priority Date/Time Associated Diagnosis Comments SPECIMEN TO PATHOLOGY Routine 01/31/2021 1:55 PM EST SPECIMEN TO PATHOLOGY Routine 01/31/2021 1:55 PM EST SPECIMEN TO PATHOLOGY Routine 01/31/2021 1:55 PM EST SURGICAL PATHOLOGY REPORT Routine 01/31/2021 1:38 PM EST Colonoscopy, Biopsy ([id number]) 01/31/2021 1:07 PM EST Chronic anal fissure Colonoscopy, Diagnostic ([id number]) 01/31/2021 1:07 PM EST Chronic anal fissure COLONOSCOPY Routine 01/31/2021 12:43 PM EST documented in this encounter Results * Specimen to Pathology (01/31/2021 1:55 PM EST) AP Specimen 01/31/2021 1:55 PM EST 01/31/2021 1:55 PM EST Narrative [facility] - 01/31/2021 1:55 PM EST Specimen requisition ordered. ??Separate Pathology report to follow Damaris May MD PATHOLOGY/CYTOLOGY O RDCYRIL Performing Organization Address [facility] Co de Phone Number [facility] [place] [address] * Specimen to Pathology (01/31/2021 1:55 PM EST) AP Specimen 01/31/2021 1:55 PM EST 01/31/2021 1:55 PM EST Narrative [facility] - 01/31/2021 1:55 PM EST Specimen requisition ordered. ??Separate Pathology report to follow Damaris May MD PATHOLOGY/CYTOLOGY O RDERATERESITA Performing Organization Address City/[facility]/ZIP Co de Phone Number [facility] [place] [address] * Specimen to Pathology (01/31/2021 1:55 PM EST) AP Specimen 01/31/2021 1:55 PM EST 01/31/2021 1:55 PM EST Narrative [facility] - 01/31/2021 1:55 PM EST Specimen requisition ordered. ??Separate Pathology report to follow Damaris May MD PATHOLOGY/CYTOLOGY O RDERABLES Performing Organization Address City/[facility] Co de Phone Number [facility] [place] [address] * Surgical Pathology Report (01/31/2021 1:38 PM EST) FINAL DIAGNOSIS (AP) [id number] ? Location: 4T; EA07; A The signing pathologist has (i) examined the relevant preparation(s) for the specimen(s) and (ii) rendered or confirmed the diagnosis(es). . ?Surgical Pathology DIAGNOSIS A - Terminal ileum, biopsy (Multiple): - ??Mildly active chronic ileitis. - ??There is no evidence of dysplasia or granulomas. B - Random colon, biopsy (Multiple): - ??Colonic mucosa within normal limits. - ??There is no evidence of dysplasia or granulomas. C - Rectum biopsies, biopsy: - ??Inactive chronic colitis. - ??There is no evidence of dysplasia or granulomas. Electronically signed by: ?Gideon JACOBS PhD, Sarah Verified: ??02/07/2021 15:02 ??Pathologist Performed at: ??-[facility] Dept. of Pathology, [place], [place] DISCUSSION The histologic features are consistent with, though not diagnostic of, idiopathic inflammatory bowel disease. Infection, and drug-induced ileitis colitis should also be considered. ??Clinical correlation is required. SPECIMEN(S) SUBMITTED A - Terminal ileum, biopsy (Multiple) B - Random colon, biopsy (Multiple) C - Rectum biopsies, biopsy (1) CLINICAL INFORMATION Suspected Crohn's SPECIMEN PROCESSING A - Labeled/Fixativ e: Terminal ileum, formalin. Quantity/Size: Three, ranging 0.2-0.5 cm. Tissue Description: Soft, red-morrissey tissues. Sections/Proces sing: Submitted en toto ??in 1 cassette labeled A1. B - Labeled/Fixativ e: Random colon, formalin. Quantity/Size: Multiple, ranging 0.3-0.6 cm. Tissue Description: Soft, red-morrissey tissues. Sections/Proces sing: Submitted en toto ??in 2 cassettes labeled B1-B2. C - Labeled/Fixativ e: Rectal biopsies, formalin. Quantity/Size: Four, average 0.3 cm. Tissue Description: Soft, red-morrissey tissues. Sections/Proces sing: Submitted en toto ??in 1 cassette labeled C1. ??MLL 02/07/2021 3:02 PM EST [facility] 01/31/2021 1:38 PM EST Damaris May MD PATHOLOGY/CYTOLOGY O RDERABLES [facility] [place] [address] * COLONOSCOPY (01/31/2021 12:43 PM EST) COLONOSCOPY [facility] Endoscopy Procedure Date: 01/31/2021 12:43 PM ? Patient Name: Wilfredo Niño ? Date of : 1985 ? Age: 35 ? Order #: [id number] ? Instrument Name: [id number] ? Procedure: ? Colonoscopy Indications: ? Suspected Crohn's disease (perianal) Providers: ? Damaris May MD, Lilliam Parker, ? RN, Laura Marshall Referring : ?Damaris Trimble MD, Skye Padgett ? MD Lizbeth Medicines: ? Midazolam 4 mg IV, Fentanyl 250 ? micrograms IV Complications: ? No immediate complications. Procedure: ? The procedure, indications, benefits, ? risks and alternatives were explained ? to the patient. Specifically ? discussed were potential ? complications including, but not ? limited to, bleeding, perforation, ? infection, missing a cancer, and ? adverse medication reactions. The ? patient was placed in the left ? lateral decubitus position, and a ? digital rectal exam was performed. ? The Colonoscope was inserted in the ? anus and under direct visualization, ? advanced to the terminal ileum, with ? identification of the appendiceal ? orifice and IC valve. Careful ? inspection was made as the ? colonoscope was withdrawn. The ? colonoscopy was somewhat difficult ? due to significant looping. ? Successful completion of the ? procedure was aided by applying ? abdominal pressure. The patient ? tolerated the procedure well. The ? quality of the bowel preparation was ? excellent. The quality of the bowel ? preparation was evaluated using the ? BBPS ([place] Bowel Preparation Scale) ? with scores of: Right Colon = 3, ? Transverse Colon = 3 and Left Colon = ? 3 (entire mucosa seen well with no ? residual staining, small fragments of ? stool or opaque liquid). The total ? BBPS score equals 9. ? Findings: ? Skin tags were found on perianal exam. ? There was mild congestion, erythema and erosion at ? the ileocecal valve without apparent stricturing. The ? first few centimeters of terminal ileum were normal. ? There was then mild inflammation characterized by ? erythema, congestion and a few small superficial ? aphthous ulcerations for about 5 cm. Proximal to this ? for 10 cm (the extent of the exam) the terminal ileum ? was normal. Biopsies were taken with a cold forceps ? for histology. ? Normal mucosa was found in the entire colon except ? for mild erythema in the distal few centimeters of ? rectum. Biopsies were taken with a cold forceps for ? histology. ? Non-bleeding internal hemorrhoids and skin tags were ? found during retroflexion. The hemorrhoids were small. ? Moderate Sedation: ? Moderate (conscious) sedation was administered by the ? endoscopy nurse and supervised by the endoscopist. ? The following parameters were monitored: oxygen ? saturation, heart rate, blood pressure, and response ? to care. Impression: ?- Perianal skin tags found on ? perianal exam. ? - Mild terminal ileitis with ? involvement of the ileocecal valve. ? Biopsied. This would be consistent ? with Crohn's disease given perianal ? disease. ? - Mild distal rectal erythema, ? otherwise normal mucosa in the entire ? colon. Biopsied. ? - Non-bleeding internal hemorrhoids. Recommendation: ?- Await pathology results. ? - Follow-up in GI clinic. ? Attending Participation: ? I personally performed the entire procedure. ? __ Damaris May MD 01/31/2021 2:11:10 PM Number of Addenda: 0 Note Initiated On: 01/31/2021 12:43 PM PROVATION 01/31/2021 12:4 3 PM EST Damaris Trimble MD GENERAL SURGICAL ORD ERABLES PROVATION documented in this encounter Visit Diagnoses Not on filedocumented in this encounter Administered Medications Inactive Administered Medications - up to 3 most recent administrations Medication Order MAR Action Action Date Dose Rate Site lactated ringers infusion 100 mL/hr, Intravenous, CONTINUOUS, Starting on Wed01/31/21 at 1300, Until Wed01/31/21 at 1415, Endoscopy (Day of Procedure) New Bag 01/31/2021 12:36 PM EST 100 mL/hr 100 mL/hr documented in this encounter Active and Recently Administered Medications Times are shown in EST. Continuous Medication Order 01/29/2021 01/30/2021 01/31/2021 lactated ringers infusion (CANCELED) 100 mL/hr, Intravenous, CONTINUOUS, Starting on Wed01/31/21 at 1300, Until Wed01/31/21 at 1415, Endoscopy (Day of Procedure) 1236 (New Bag - Prov ider: Monique Snell, RUPA) PRN Medication Order 01/29/2021 01/30/2021 01/31/2021 fentaNYL (pf) (50 mcg/mL) multi-dose injection (CANCELED) ONCE PRN, Starting on Wed01/31/21 at 1310, Until Wed01/31/21 at 1632, Intra-Operative (Intra-Procedure), Routine 1310 (Given - Provid er: Lilliam Parker RN)1313 (Given - Provider: Lilliam Parker RN)1316 (Given - Provider: Lilliam Parker RN)1321 (Given - Provider: Lilliam Parker RN)1325 (Given - Provider: Lilliam Parker RN) midazolam (pf) (Versed) (1 mg/mL) multi-dose injection (CANCELED) ONCE PRN, Starting on Wed01/31/21 at 1310, Until Wed01/31/21 at 1632, Intra-Operative (Intra-Procedure), Routine 1310 (Given - Provid er: Lilliam Parker RN)1313 (Given - Provider: Lilliam Parker RN)1316 (Given - Provider: Lilliam Parker RN)1321 (Given - Provider: Lilliam Parker RN) documented in this encounter Care Teams Rim Roller Operator Relationship Specialty Start Date End Date Maria Dolores Delong MD [facility]ILD [facility] [place] [address] PCP - General 02/11/10 09/07/21 documented as of this encounter
--- OUTSIDE RECORDS SUMMARY | 2023-10-14 01:04 | XMS_ITS | Encounter Summary ---
Author Organization [facility] [place] [address] Care Team Providers Care Electric Motor Mechanic Name Role Phone None Primary Care Provider Unavailabl e Encounter Details Date Type Department Care Team (Late st Contact Info) Description 09/10/2021 Orders Only Gastroenterology at [facility] [place] [address] Jacklyn Morgan, RN Crohn's disease of perianal region with complication; Crohn's disease of small intestine with other complication Social History Tobacco Use Types Packs/Day [...] of small intestine with other complication documented in this encounter Care Teams Electric Motor Mechanic Relationship Specialty Start Date End Date None None PCP - General 09/08/21 documented as of this encounter
--- OUTSIDE RECORDS SUMMARY | 2023-10-14 01:04 | XMS_ITS | Encounter Summary ---
Author Organization [facility] [place] [address] Care Team Providers Care Software Computer Specialist Name Role Phone Maria Dolores Delong MD Primary Care Provider [phone] Reason for Visit * Reason Comments Medication Refill Encounter Details Date Type Department Care Team (Late st Contact Info) Description 06/04/2021 Refill [place] [address] Damaris May MD [facility] [place] [address] Crohn's disease of small intestine with other [...] complication documented in this encounter Care Teams Software Computer Specialist Relationship Specialty Start Date End Date Maria Dolores Delong MD [facility] [address] CHILD ADVOCACY [employer] [place] [address] PCP - General 02/11/10 09/07/21 documented as of this encounter
--- OUTSIDE RECORDS SUMMARY | 2023-10-14 01:04 | XMS_ITS | Encounter Summary ---
Author Organization [facility] [place] [address] Care Team Providers Care Abrasive Water Jet Cutter Operator Name Role Phone Maria Dolores Delong MD Primary Care Provider [phone] Encounter Details Date Type Department Care Team (Late st Contact Info) Description 02/20/2021 Orders [place] [address] Skye Nieves APRN [facility] [place] [address] Social History Tobacco Use Types Packs/Day Years [...] on filedocumented in this encounter Care Teams Abrasive Water Jet Cutter Operator Relationship Specialty Start Date End Date Maria Dolores Delong MD [facility] CHILD [facility]VOC[facility] [place] [address] PCP - General 11/23/10 6/19/22 documented as of this encounter
--- OUTSIDE RECORDS SUMMARY | 2023-10-14 01:04 | XMS_ITS | Encounter Summary ---
Author Organization [facility] [place] [address] Care Team Providers Care Mower Operator Name Role Phone Maria Dolores Delong MD Primary Care Provider [phone] Encounter Details Date Type Department Care Team (Late st Contact Info) Description 03/25/2021 Telephone [place] [id number] Damaris May MD [facility] [place] [address] Social History Tobacco Use Types Packs/Day Years [...] Miscellaneous Notes * Telephone Encounter - Damaris May MD - 03/25/2021 2:57 PM EST Talked with Wilfredo today. Reviewed the purpose of each drug. Reviewed her labs - TPMT is normal. Clarified the issue of COVID vaccine - the vaccination is SAFE on all of these medications (budesonide, 6-MP, Remicade) and will not delay her treatment, but the response may be blunted with steroids/immunomodulators. She understands this and emphasizes priority to start effective treatment. She will get vaccinated KALYN and continue precautions. Scripts sent for budesonide for ileal disease & dose 6-MP. Low likelihood 6-MP alone will help her perianal disease and anticipate use in combination with 6-MP - we will wait to hear from her about how she is doing. documented in this encounter Plan of Treatment Scheduled Procedures Name Priority Associated Diagnoses Date/Ti me COLONOSCOPY, DIAGNOSTIC (WRV U 3.26) Crohn's disease of small intestine with other complication documented as of this encounter Visit Diagnoses Not on filedocumented in this encounter Care Teams Mower Operator Relationship Specialty Start Date End Date Maria Dolores Delong MD [facility] CHILD ADVOCACY & [place] [address] PCP - General 02/11/10 09/07/21 documented as of this encounter
--- OUTSIDE RECORDS SUMMARY | 2023-10-14 01:04 | XMS_ITS | Encounter Summary ---
[place] [address] Care Team Providers Care Circular Ripsaw Operator Name Role Phone Maria Dolores Delong MD Primary Care Provider [phone] Encounter Details Date Type Department Care Team (Late st Contact Info) Description 08/14/2021 Telephone [place] [id number] Jacklyn Morgan RN Social History Tobacco Use [...] Telephone Encounter - Irene Landis RN - 08/28/2021 11:45 AM EDT Approved 08/14/2021=08/14/2022 auth # [id number] [employer] called with updated auth number * Telephone Encounter - Jacklyn Morgan RN - 08/14/2021 2:34 PM EDT Prior Authorization ?? Facility:??[facility] TIN:??[id number] NPI:??[id number] [place] Medicaid ID# for facility:?[id number] ?? Medication:??Remicade J-code:??[id number] Dosage:??300 mg Frequency & Route:?? every 8 weeks Insurance & Phone #:??[place]icaid ID #:??[id number] Trialed (dosage, frequency):??budesonide, 6MP Diagnosis/ICD-10:?new dx crohns Notes: form and office notes faxed, marked as urgent documented in this encounter Plan of Treatment Scheduled Procedures Name Priority Associated Diagnoses Date/Ti me COLONOSCOPY, DIAGNOSTIC (WRV U 3.26) Crohn's disease of small intestine with other complication documented as of this encounter Visit Diagnoses Not on filedocumented in this encounter Care Teams Circular Ripsaw Operator Relationship Specialty Start Date End Date Maria Dolores Delong MD [facility] [address] CHILD ADVOCACY [place] [address] PCP - General 02/11/10 09/07/21 documented as of this encounter
--- OUTSIDE RECORDS SUMMARY | 2023-10-14 01:04 | XMS_ITS | Encounter Summary ---
Author Organization [facility] [place] [address] Care Team Providers Care House Decorator Name Role Phone Maria Dolores Delong MD Primary Care Provider [phone] Encounter Details Date Type Department Care Team (Latest Contact Info) Description 02/18/2021 4:00 PM EST TH Visit (TeleHealth) [place] [address] Skye Nieves APRN [facility] [address] [place] [address] Crohn's disease of small intestine with other [...] as of this encounter Progress Notes * Skye Nieves APRN - 02/18/2021 4:00 PM EST [facility] Gastroenterology Telehealth Visit Primary care provider: Maria Dolores Delong MD ?? Referring provider: Dr. Damaris Trimble ?? Reason for visit: Crohn's disease, review recent colonoscopy path reports Problem List Patient Active Problem List Diagnosis Date Noted ??? 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 Current Gastroenterology Medications: nifedipine ointment DETAILED IBD HISTORY: Crohn's disease - initial presentation: perianal pain, bleeding with anal fissure and skin tags for a year - Initially seen Dr. Damaris Trimble, underwent Anoscopy: ??Findings include: no evidence of proctitis. ??Multiple fissures - posterior, left anterior, right anterior. Pathology showed epithelioid granulomas. ?? - TX: Protopic ointment 0.1 %, to external anal fissure twice daily x 8 weeks - 01/31/21 Colonoscopy ( Dr. May): Perianal skin tags found on perianal exam. Mild terminal ileitis with involvement of the ileocecal valve. Biopsied. This would be consistent with Crohn's diseasegiven perianal disease. Mild distal rectal erythema, otherwise normal mucosa in the entire colon. Biopsied. Non-bleeding internal hemorrhoids. A - Terminal ileum, biopsy (Multiple): Mildly active chronic ileitis. There is no evidence of dysplasia or granulomas. B - Random colon, biopsy (Multiple): Colonic mucosa within normal limits. There is no evidence of dysplasia or granulomas. C - Rectum biopsies, biopsy: Inactive chronic colitis. There is no evidence of dysplasia or granulomas. DISCUSSION The histologic features are consistent with, though not diagnostic of, idiopathic??inflammatory bowel disease. Infection, and drug-induced ileitis colitis should also ??be considered. ??Clinical correlation is required. # perianal fissure/skin tags, will try Protopic 0.1% ointment apply to perianal fissure BID x 8 weeks given no improvement on Nifedipine ointment. Interval History: Wilfredo presents for TH visit to review her colonoscopy pathology reports and treatment. She could not get the protopic ointment ( perianal fissure/skin tags) due to cost , insurance denied it and she was told that she needs to try other ointment first. She has been using Nifedipine ointment but not very helpful. Still having perianal pain. ?? Having Bm 3x/day, mostly formed then other times soft. Bleeding only with the fissure and less recently No abdominal pain She is eating. Weight stable. No nausea/vomiting No fever/chills. Review of systems as in the HPI, the rest of the review of systems were negative. Past Medical History, Social History and Family History is unchanged. Allergies/Adverse reactions Patient has no known allergies. No Physical Examination Performed Recent labs Admission on 01/31/2021, Discharged on 01/31/2021 Component Date Value Ref Range Status ??? COLONOSCOPY 01/31/2021 Final Value:[facility] Endoscopy Procedure Date: 01/31/2021 12:43 PM Patient Name: Wilfredo Niño Date of : 1985 Age: 35 Order #: [id number] Instrument Name: [id number] Procedure: Colonoscopy Indications: Suspected Crohn's disease (perianal) Providers: Damaris May MD, Lilliam Parker RN, Laura Hewitt MD: Damaris Trimble MD, Skye Nieves MD Medicines: Midazolam 4 mg IV, Fentanyl 250 micrograms IV Complications: No immediate complications. Procedure: The procedure, indications, benefits, risks and alternatives were explained to the patient. Specifically discussed were potential complications including, but not limited to, bleeding, perforation, infection, missing a cancer, and adverse medication reactions. The patient was placed in the left lateral decubitus position, and a digital rectal exam was performed. The Colonoscope was inserted in the anus and under direct visualization, advanced to the terminal ileum, with identification of the appendiceal orifice and IC valve. Careful inspection was made as the colonoscope was withdrawn. The colonoscopy was somewhat difficult due to significant looping. Successful completion of the procedure was aided by applying abdominal pressure. The patient tolerated the procedure well. The quality of the bowel preparation was excellent. The quality of the bowel preparation was evaluated using the BBPS ([place] Bowel Preparation Scale) with scores of: Right Colon = 3, Transverse Colon = 3 and Left Colon = 3 (entire mucosa seen well with no residual staining, small fragments of stool or opaque liquid). The total BBPS score equa ls 9. Findings: Skin tags were found on perianal exam. There was mild congestion, erythema and erosion at the ileocecal valve without apparent stricturing. The first few centimeters of terminal ileum were normal. There was then mild inflammation characterized by erythema, congestion and a few small superficial aphthous ulcerations for about 5 cm. Proximal to this for 10 cm (the extent of the exam) the terminal ileum was normal. Biopsies were taken with a cold forceps for histology. Normal mucosa was found in the entire colon except for mild erythema in the distal few centimeters of rectum. Biopsies were taken with a cold forceps for histology. Non-bleeding internal hemorrhoids and skin tags were found during retroflexion. The hemorrhoids were small. Modera te Sedation: Moderate (conscious) sedation was administered by the endoscopy nurse and supervised by the endoscopist. The following parameters were monitored: oxygen saturation, heart rate, blood pressure, and response to care. Impression: - Perianal skin tags found on perianal exam. - Mild terminal ileitis with involvement of the ileocecal valve. Biopsied. This would be consistent with Crohn's disease given perianal disease. - Mild distal rectal erythema, otherwise normal mucosa in the entire colon. Biopsied. - Non-bleeding internal hemorrhoids. Recommendation: - Await pathology results. - Follow-up in GI clinic. Attending Partic ipation: I personally performed the entire procedure. Damaris May MD 01/31/2021 2:11:10 PM Number of Addenda: 0 Note Initiated On: 01/31/2021 12:43 PM ??? Surgical Pathology Report 01/31/2021 Final Value:[id number] Location: 4T; EA07; A The signing pathologist has (i) examined the relevant preparation(s) for the specimen(s) and (ii) rendered or confirmed the diagnosis(es). . Surgical Pathology DIAGNOSIS A - Terminal ileum, biopsy (Multiple): - Mildly active chronic ileitis. - There is no evidence of dysplasia or granulomas. B - Random colon, biopsy (Multiple): - Colonic mucosa within normal limits. - There is no evidence of dysplasia or granulomas. C - Rectum biopsies, biopsy: - Inactive chronic colitis. - There is no evidence of dysplasia or granulomas. Electronically signed by: Gideon JACOBS PhD, Sarah Verified: 02/07/2021 15:02 Pathologist Performed at: -[facility] Dept. of Pathology, [place], [place] DISCUSSION The histologic features are consistent with, though not diagnostic of, idiopathic inflammatory bowel disease. Infection, and drug-i nduced ileitis colitis should also be considered. Clinical correlation is required. SPECIMEN(S) SUBMITTED A - Terminal ileum, biopsy (Multiple) B - Random colon, biopsy (Multiple) C - Rectum biopsies, biopsy (1) CLINICAL INFORMATION Suspected Crohn's SPECIMEN PROCESSING A - Labeled/Fixative: Terminal ileum, formalin. Quantity/Size: Three, ranging 0.2-0.5 cm. Tissue Description: Soft, red-morrissey tissues. Sections/Processing: Submitted en toto in 1 cassette labeled A1. B - Labeled/Fixative: Random colon, formalin. Quantity/Size: Multiple, ranging 0.3-0.6 cm. Tissue Description: Soft, red-morrissey tissues. Sections/Processing: Submitted en toto in 2 cassettes labeled B1-B2. C - Labeled/Fixative: Rectal biopsies, formalin. Quantity/Size: Four, average 0.3 cm. Tissue Description: Soft, red-morrissey tissues. Sections/Processing: Submitted en toto in 1 cassette labeled C1. [facility] Office Visit on 11/29/2020 Component Date Value Ref Range Status ??? Surgical Pathology Report 11/29/2020 Final Value:[id number] Location: 4L The signing pathologist has (i) examined the relevant preparation(s) for the specimen(s) and (ii) rendered or confirmed the diagnosis(es). . Surgical Pathology DIAGNOSIS A - Anterior anal canal and right anterior skin tag, biopsy: - Benign anal skin with chronic inflammation and epithelioid granulomas, consistent with involvement by Crohn's disease if supported by clinical findings. B - Posterior anal margin skin, biopsy: - Benign anal skin. Electronically signed by: Anton Hopkins MD Verified: 12/06/2020 16:16 Pathologist Performed at: -[facility] Dept. of Pathology, [place], [place] ADDITIONAL STUDIES Whole slide scan: A1 SPECIMEN(S) SUBMITTED A - Biopsies from anterior anal canal and right anterior skin tag., biopsy (Multiple) B - Posterior anal margin skin biopsy, biopsy (2) CLINICAL INFORMATION Atypical anal fissu res-R/O Crohn's disease, lichen sclerosis, cancer SPECIMEN PROCESSING A - Labeled/Fixative: #1, formalin. Quantity/Size: Three, 0.2 x 0.1 x 0.17 m-0.6 x 0.4 x 0.3 cm. Tissue Description: Two wispy morrissey-pink soft tissue fragments and a rubbery polypoid morrissey-pink skin fragment. Sections/Processing: Entirely submitted in 2 cassettes as follows: A1: Skin fragment, inked and trisected A2: 2 intact tissues B - Labeled/Fixative: #2, formalin. Quantity/Size: Two, 0.1 and 0.2 cm. Tissue Description: Soft, wispy morrissey-white tissues. Sections/Processing: Submitted en toto in 1 cassette labeled B1. ajw Recent endoscopic procedures As in detailed in history above Recent relevant imaging As in detailed in history above Impression/Plan: Wilfredo Niño is a 35 yo woman with h/o perianal pain and bleeding with associated skin tags that has been increasing in size for about a year now. She had a recent colonoscopy that showed Perianal skin tags found on perianal exam. Mild terminal ileitis with involvement of the ileocecal valve. This would be consistent with Crohn's disease given perianal disease. Mild distal rectal erythema, otherwise normal mucosa in the entire colon. Non-bleeding internal hemorrhoids. Her TI Bx showed Mildly active chronic ileitis. Random colon bx was normal. Rectal bx showed Inactive chronic colitis She is scheduled for MRE on 02/27. We had discussed previously use of biologic agent like Infliximab, Humira vs Cimzia. Reviewed briefly risks/benefits. I reviewed specifics on what we know about side-effects of anti-TNF agents (Remicade, Humira, Cimzia). Risks presented include immediate and delayed infusion/injection site reactions; development of antibodies to the medication might reduce efficacy or promote allergic reactions, infection, including rare opportunisitc infections, tuberculosis or histoplasmosis, or most commonly, upper respiratory infections; positive daqj-tcdqoq-elxcgstd DNA antibodies, and rarely a lupus-like syndrome; the possible risk of lymphoma is approximately 6 cases among 10,000 treated Crohn's disease patients (as opposed to baseline rate about 2/10,000; very rare demyelinating neurologic disease; worsening of CHF(if pre-existing); and rare sepsis related (approximately 4 cases among 1000 treated patients, but typically in older patients with comorbidities and taking concomitant immune suppressants). Expected benefit includes response in 60-70% of patients, with approximately 30-50% of those patients maintaining remission out to one year. Longer term remission data is uncertain. She is willing to try Infliximab. Will plan on getting Prometheus Risk Immune as well. Reviewed labs surveillance and IFX trough level on week 14 to help guide therapy. She would need health maintenance while on above medications. We did not discussed this today but will review at next visit. As far as her perianal disease, will try Pro topic 0.1% ointment apply to perianal fissure BID x 8 weeks given no improvement on Nifedipine ointment. Still needs to schedule MRI-pelvis to evaluate for any fistula or abscess. Plans: - Initiate Infliximab 5 mg/kg week 0, week 2, week 6 then every 8 weeks - Plan for IFX trough level on week 14 - Lab surveillance while on Infliximab per protocol. - Will get Prometheus Risk Immune. - Needs MRE 02/27 and schedule MRI pelvis - Start Protopic 0.1% ointment apply to perianal fissure BID x 8 weeks and stop Nifedipine since not very helpful. - Dr. May will see anum for f/u on a Wednesday in February tele health visit. ??Health maintenance while on immunosuppression : Not discussed today - yearly flu shot - Pneumonia vaccine ( Prevnar 13 ??then Pneumovax ) if she has not had one.??She would check with her PCP. ?? For patients who have not received Pneumococcal vaccination # Administer PCV13 (Prevnar) first, then administer PPSV23 (Pneumovax) > 8 weeks later ?? For patients who have received one dose of PPSV23 # Administer PCV13 (Prevnar) >1 year after having received PPSV23 (Pneumovax) # Next dose of PPSV23 (Pneumovax) should be given >5 years after first dose, and >8 weeks after PCV13 (Prevnar). ?? - Non Live Vaccine ( like Shingrix) . - Avoid LIVE Vaccines - COVID -19 vaccine - Dermatology with skin check yearly ?? 20 minutes of this 30 minute telehealth appointment were spent in direct counseling regarding treatment of patient's gastroenterology concern. Please contact me if there are any further questions regarding the care of this patient. Brittni Nieves APRN Gastroenterology Section [facility] documented in this encounter Plan of Treatment Scheduled Procedures Name Priority Associated Diagnoses Date/Ti me COLONOSCOPY, DIAGNOSTIC (WRV U 3.26) Crohn's disease of small intestine with other complication documented as of this encounter Visit Diagnoses Diagnosis Crohn's disease of small intestine with other complication documented in this encounter Care Teams House Decorator Relationship Specialty Start Date End Date Maria Dolores Delong MD [facility] CHILD [facility]VOC[facility]Y [place] [address] PCP - General 02/11/10 09/07/21 documented as of this encounter
--- OUTSIDE RECORDS SUMMARY | 2023-10-14 01:04 | XMS_ITS | Encounter Summary ---
Author Organization [facility] [place] [address] Care Team Providers Care Tip Tester Name Role Phone Maria Dolores Delong MD Primary Care Provider [phone] Encounter Details Date Type Department Care Team (Late st Contact Info) Description 03/25/2021 Orders [place] [address] Damaris May MD [facility] [place] [address] Crohn's disease of small intestine with other [...] complication documented in this encounter Care Teams Tip Tester Relationship Specialty Start Date End Date Maria Dolores Delong MD [facility] CHILD ADVOCACY & [place] [address] PCP - General 02/11/10 09/07/21 documented as of this encounter
--- OUTSIDE RECORDS SUMMARY | 2023-10-14 01:04 | XMS_ITS | Encounter Summary ---
Author Organization [facility] [place] [address] Care Team Providers Care Merchandise Coordinator Name Role Phone Maria Dolores Delong MD Primary Care Provider [phone] Encounter Details Date Type Department Care Team (Late st Contact Info) Description 03/25/2021 Orders [place] [address] Damaris May MD [facility] [place] [address] Crohn's disease of small intestine with other [...] complication documented in this encounter Care Teams Merchandise Coordinator Relationship Specialty Start Date End Date Maria Dolores Delong MD [facility] CHILD ADVOCACY & [place] [address] PCP - General 02/11/10 09/07/21 documented as of this encounter
--- OUTSIDE RECORDS SUMMARY | 2023-10-14 01:04 | XMS_ITS | Encounter Summary ---
[place] [address] Care Team Providers Care Cutlery Grinder Name Role Phone Maria Dolores Delong MD Primary Care Provider [phone] Reason for Visit * Reason Onset Date Comments Prior Authorization 02/20/2021 Encounter Details Date Type Department Care Team (Late st Contact Info) Description 02/20/2021 Telephone [place] [address] Milli Justice, CCMA Prior Authorization Social History Tobacco Use Types Packs/Day Years [...] encounter Miscellaneous Notes * Telephone Encounter - Milli Justice LNA - 02/20/2021 11:11 AM EST Medication Prior Authorization 4L Gastroenterology / [place] [address] Subscriber Insurance: [place] Medicaid Phone: Fax: Physician: Skye Nieves Return Pharmacy: [facility] Fax: Medication Requested: Tacrolimus Ointment Strength: 0.1% Frequency: Twice Daily Disp.: Refills: Currently taking: Diagnosis for this medication: Anal Fissures ICD-10 code: K60.1 Prior medications trialed in this patient: Nifedipine Ointment Medication: Outcome/Adverse Reactions: Treatment Failure Decision: Pending Request for Information: The patient must have had a documented side effect, allergy, or treatment failure (defined as daily treatment for at least one month) with at least one topical corticosteroidwithin the last 6 months. Tracking number/Case number/Reference number: [id number] Effective date: Start: End: documented in this encounter Plan of Treatment Scheduled Procedures Name Priority Associated Diagnoses Date/Ti ok COLONOSCOPY, DIAGNOSTIC (WRV U 3.26) Crohn's disease of small intestine with other complication documented as of this encounter Visit Diagnoses Not on filedocumented in this encounter Care Teams Cutlery Grinder Relationship Specialty Start Date End Date Maria Dolores Delong MD [facility] CHILD ADVOCACY & [place] [address] PCP - General 02/11/10 09/07/21 documented as of this encounter
--- OUTSIDE RECORDS SUMMARY | 2023-10-14 01:04 | XMS_ITS | Encounter Summary ---
[place] [address] Care Team Providers Care Poultry Culler Name Role Phone Maria Dolores Delong MD Primary Care Provider [phone] Encounter Details Date Type Department Care Team (Late st Contact Info) Description 05/02/2021 Ancillary [place] [id number] Damaris May MD [facility] [place] [address] Social History Tobacco Use Types Packs/Day Years [...] FILM LIBRARY STORAGE ONLY ULTRASOUND STUDY Routine 05/02/2021 12:00 AM EST documented in this encounter Results * Film Library- Storage Only Ultrasound Study (05/02/2021 12:00 AM EST) Narrative RAD - 02/18/2022 10:03 PM EST This exam is auto-finalizing. It's purpose is for storage only. Damaris May MD IMG FILM LIBRARY ORD ERABLES [place], [place] documented in this encounter Visit Diagnoses Not on filedocumented in this encounter Care Teams Poultry Culler Relationship Specialty Start Date End Date Maria Dolores Delong MD [facility] [address] CHILD ADVOC[facility]Y [facility] [place] [address] PCP - General 02/11/10 09/07/21 documented as of this encounter
--- OUTSIDE RECORDS SUMMARY | 2023-10-14 01:04 | XMS_ITS | Encounter Summary ---
Author Organization [facility] [place] [address] Care Team Providers Care Boot Turner Name Role Phone None Primary Care Provider Unavailabl e Encounter Details Date Type Department Care Team (Late st Contact Info) Description 11/17/2021 Telephone [place] [phone] Jacklyn Morgan RN Social History Tobacco Use [...] encounter Miscellaneous Notes * Telephone Encounter - Jacklyn Morgan RN - 11/17/2021 8:59 AM EDT Facility:??[facility] TIN:??[id number] NPI:??[id number] [place] Medicaid ID# for facility:?[id number] ?? Medication:??Remicade J-code:??[id number] Dosage:??600 mg Frequency & Route:?every 8 weeks Insurance & Phone #:??[place] medicaid ID #:??[id number] Trialed (dosage, frequency):??budesonide, 6MP Diagnosis/ICD-10:?new dx crohns Notes:??form and office notes faxed, marked as urgent documented in this encounter Plan of Treatment Scheduled Procedures Name Priority Associated Diagnoses Date/Ti me COLONOSCOPY, DIAGNOSTIC (WRV U 3.26) Crohn's disease of small intestine with other complication documented as of this encounter Visit Diagnoses Not on filedocumented in this encounter Care Teams Boot Turner Relationship Specialty Start Date End Date None None PCP - General 09/08/21 documented as of this encounter
--- OUTSIDE RECORDS SUMMARY | 2023-10-14 01:04 | XMS_ITS | Encounter Summary ---
Author Organization [facility] [place] [address] Care Team Providers Care Game Programmer Name Role Phone Maria Dolores Delong MD Primary Care Provider [phone] Encounter Details Date Type Department Care Team (Late st Contact Info) Description 02/06/2021 Orders [place] [address] Skye Nieves APRN [facility] [place] [address] Social History Tobacco Use Types Packs/Day Years [...] Progress Notes * Skye Nieves APRN - 02/06/2021 2:04 PM EST I called Wilfredo as she called this afternoon and would like to speak with me. She reported that she was upset about her condition and not necessarily at me as she had seen 2 prior providers and so far has not had any relief from her symptoms. She was referred to us by Dr. Damaris Trimble ( Colorectal surgery) regarding anal fissure, ? Crohn'sdisease and I saw her on 01/21 until she could be seen by IBD MD. Initially plan to schedule her with Dr. Gonzales but she told me that she prefers female provider so I will switch her to see Dr. May. I scheduled her for colonoscopy , MRI-pelvis and MRE for evaluation. I had send a Rx for Nifedipine ointment for the anal fissure. Unfortunately her pharmacy did not get our Rx eventhough it was sent. We send it to a compounded pharmacy. She said that she was not aware about this. Please see nursing notes. She is miserable due to anal pain. Recently having more looser stools up to 6x/day and some abdominal discomfort that she suspect since she started taking oral iron. She had her colonoscopy on 01/[address] May: - Perianal skin tags found on perianal exam. - Mild terminal ileitis with involvement of the ileocecal valve. Biopsied. This would be consistent with Crohn's disease given perianal disease. - Mild distal rectal erythema, otherwise normal mucosa in the entire colon. Biopsied. Path still pending. MRE scheduled on 02/27 We discussed about her colonoscopy report, likely Crohn's disease. Once Bx reported, tx options: Discussed use of biologic agent like Infliximab, Humira [...] or most commonly, upper respiratory infections; positive gukj-achqyy-vdmyxtkc DNA antibodies, and rarely a lupus-like syndrome; [...] year. Longer term remission data is uncertain. Other option is clinical trial:Ozanimod. As far as her perianal disease, will try Protopic 0.1% ointment apply to perianal fissure BID x 8 weeks. Hold Nifedipine ointment for now. Consider Entocort but she prefers to take it once we have bx report. documented in this encounter Plan of Treatment Scheduled Procedures Name Priority Associated Diagnoses Date/Ti me COLONOSCOPY, DIAGNOSTIC (WRV U 3.26) Crohn's disease of small intestine with other complication documented as of this encounter Visit Diagnoses Not on filedocumented in this encounter Care Teams Game Programmer Relationship Specialty Start Date End Date Maria Dolores Delong MD [facility]ILD [facility] [place] [address] PCP - General 02/11/10 09/07/21 documented as of this encounter
--- OUTSIDE RECORDS SUMMARY | 2023-10-14 01:04 | XMS_ITS | Encounter Summary ---
[place] [address] Care Team Providers Care Regulatory Scientist Name Role Phone Maria Dolores Delong MD Primary Care Provider [phone] Encounter Details Date Type Department Care Team (Late st Contact Info) Description 04/14/2021 Telephone [place] [phone] Sarbjit Morales RN Social History Tobacco Use [...] Telephone Encounter - Sarbjit Morales RN - 04/14/2021 12:22 PM EST Wilfredo leaves a message. Would like Dr. May to know that she's been on the medications for several weeks now with no symptom improvement. documented in this encounter Plan of Treatment Scheduled Procedures Name Priority Associated Diagnoses Date/Ti ar COLONOSCOPY, DIAGNOSTIC (WRV U 3.26) Crohn's disease of small intestine with other complication documented as of this encounter Visit Diagnoses Not on filedocumented in this encounter Care Teams Regulatory Scientist Relationship Specialty Start Date End Date Maria Dolores Delong MD [facility] CHILD ADV[facility] [place] [address] PCP - General 02/11/10 09/07/21 documented as of this encounter
--- OUTSIDE RECORDS SUMMARY | 2023-10-14 01:04 | XMS_ITS | Encounter Summary ---
Author Organization [facility] [place] [address] Care Team Providers Care Manual Control Auger Press Operator Name Role Phone None Primary Care Provider Unavailabl e Encounter Details Date Type Department Care Team (Latest Contact Info) Description 09/08/2021 8:00 AM EDT TH Visit (TeleHealth) [place] [address] Damaris May MD [facility] [place] [address] Crohn's disease of perianal region with complication; Crohn's disease of small intestine with other complication; Anemia, unspecified type Social History Tobacco Use Types Packs/Day [...] * Patient Instructions* Damaris May MD - 09/09/2021 3:45 PM EDT Recommend: Check iron levels, repeat blood counts and liver tests, thiopurine metabolites and B12 - [facility] (if labs stable, routine labs can be about every 3 months) Increase Remicade to 600mg (10mg/kg) every 8 weeks Check Remicade level prior to next infusion, message me prior to next infusion so we can time the order appropriately Continue low dose 6-MP 25mg/day Call colorectal surgery Start pelvic floor physical therapy Start Miralax 1 cap per day (may take several days to 1 week to work) and adjust as needed to soften stools even more Start Nifedipine for 6 weeks Colonoscopy October 2021 to evaluate for mucosal healing of ileal disease - please call [phone] schedule Continue to avoid smoking tobacco Follow-up: 3 months documented in this encounter Progress Notes * Damaris May MD - 09/08/2021 8:00 AM EDT [facility] Section of Gastroenterology and Hepatology IBD Telemedicine Follow-Up Visit PCP: Maria Dolores Delong MD (Inactive) Referring provider: Adia Nieves NP Colorectal: Damaris Trimble MD HPI This is a 36 y.o. female former smoker who is engaging in follow-up for Crohn's disease manifestingas severe perianal fissures with histologic inactive proctitis and mild ileal disease. Interval follow-up Labs 05/22/2021: WBC 5.1, Hgb 11.1 (note Hgb 01/23/2021 was 8.4), Plts 243, AST/ALT 21/22, T bili 1.1,D bili 0.3, CRP < 0.05 Labs 08/29/2021: WBC 5.1, Hgb 10.0, Plts 330, T bili 0.8, AST 47, ALT 39, CRP 0.06 Perianal area: Two largest fissures - one closed completely in the first month, the other one has not healed, scar tissue skin tag has grown and new skin tag in the fissure. Discomfort in the anorectal area with BMs only, 80% of the time there is bleeding regardless of stool consistency, but blood is typically just on the tissue paper rather than in the bowl and is a small amount, wipes softly/blots. Seems like there are some smaller fissures developing. Skin tags are really uncomfortable - intimacy, certain exercises like squats - really wants these to heal (look normal, feel normal). Most progress happened early on during induction. BMs: at least 1x/day, occasionally 2-3 (depends on caffeine and iron supplement), stool is formed, usually soft but occasionally firm - normal for her, occasionally strains but tries not to - feels muscles are tired, hard to get the muscle to relax No abdominal pain Menses: yes, heavy - had blood drawn during menses and was very heavy (known fibroids) Not using anything rectal right now Weight 142 lbs Next infusion is October week, 300mg every 8 weeks Taking 1/2 tab of 6-MP Weight stable No questionnaires on file. IBD Qorus Provider Questionnaire Review of systems: 14-point review of systems [...] with no blood ?? CRP (05/22/21) <0.05 Patient Active Problem List Diagnosis Code ??? 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 mercaptopurine (Purinethol) 50 mg tablet, TAKE ONE-HALF TABLET BY MOUTH EVERY DAY FOR CROHNS DISEASE Indications: Crohn's disease, Disp: 45 tablet, Rfl: 3 ? ? budesonide EC (Entocort EC) 3 mg Capsule, Delayed & Ext.Release, Take 3 capsules by mouth daily for 4 weeks, 2 capsules for 2 weeks and 1 capsule for 2 weeks., Disp: 126 capsule, Rfl: 0 ??? lidocaine/hydrocortisone ac (lidocaine HCl-hydrocortison ac) 2 %-2 % (7 gram) Kit, Place 1 Application rectally 2 times daily as needed (perianal pain). Apply pea sized amount to affected perianal area twice daily as needed x 4 weeks, Disp: 1 kit, Rfl: 0 ??? NIFEdipine, Bulk, Powder, 0.2% in aquaphor or plastibase. Apply pea size amount twice daily x 6weeks, Disp: 100 g, Rfl: 1 ??? tacrolimus (Protopic) 0.1 % Ointment, Apply to external anal fissure twice daily x 8 weeks (Patient not taking: Reported on 03/03/2021), Disp: 60 g, Rfl: 0 No Known Allergies No past medical history on file. Past Surgical History: Procedure Laterality Date ??? PRO COLONOSCOPY, BIOPSY N/A 01/31/2021 COLONOSCOPY FLEXIBLE, WITH BX (WRVU 3.66) performed by Damaris May MD at [facility] ENDOSCOPY ??? PRO COLONOSCOPY, DIAGNOSTIC N/A 01/31/2021 COLONOSCOPY, DIAGNOSTIC performed by Damaris May MD at [facility] ENDOSCOPY Social History Socioeconomic History ??? Marital status: Single Spouse name: Not on file ??? Number of children: Not on file ??? Years of education: Not on file ??? Highest education level: Not on file Occupational History ??? Not on file Tobacco Use ??? Smoking status: Former Smoker Packs/day: 1.00 Types: Cigarettes ??? Smokeless tobacco: Never Used Vaping Use ??? Vaping Use: Never used [...] As noted above Impression: Wilfredo is a 36 y.o. female former smoker who is engaging in follow-up for Crohn's disease. Mitchell of disease and symptoms are perianal fissures (+granulomas on biopsy) and recurrent (skin tags) without detectable fistula on MRI pelvis. 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 Small perianal cyst on MRI, doubt this would be an abscess given the absence of a fistula. She does have mild inflammatory ileal disease with IC valve involvement. Partial benefit with Remicade in healing of perianal fissure but this was greatest during induction- she continues to have pain and bleeding due to persistent fissures. I recommend dose-escalation. May take more time. Also counseled on treatment of any potential underlying pelvic floor dysfunctionwhich can develop in this setting and inhibit healing. Mildly abnormal LFTs. Broad differential, may be transient- on a very low dose of 6-MP; will repeat. Recommend: ?? Check iron levels, repeat blood counts and liver tests, [facility]iopurine metabolites and [facility], routine labs can be about every 3 months) ?? Increase Remicade to 600mg (10mg/kg) every 8 weeks ?? Check Remicade level prior to next infusion, will look at where she can do this, asked her to message me prior to her next infusion so we can time the order appropriately ?? Continue low dose 6-MP 25mg/day ?? Call colorectal surgery, appreciate re-evaluation by Dr. Trimble to help us measure progress and see if there are any additional recommendations ?? Start pelvic floor physical therapy (she has an outside referral) ?? Start Miralax 1 cap per day and adjust as needed to soften stools even more ?? Start Nifedipine for 6 weeks ?? Colonoscopy October 2021 to evaluate for mucosal healing of ileal disease - please call [phone] to schedule ?? Continue to avoid smoking tobacco Follow-up: 3 months (IBD patient, ok to be seen by Adia) IBD Health Maintenance (updated periodically) (1) Colonoscopy / Colon cancer surveillance: -Colonic disease: histologic proctitis only (2) Tobacco use: former (3) Vaccinations: Focus on COVID vaccine -Flu: Recommend yearly. -Pneumonia vaccine (PCV15 or [...] -Prior use of AZA, MTX or anti-TNF: Current -Dermatology: Will need follow-up moving forward (7) Bone Health Risk assessment -Age (M>50 or post-menopausal): 36 y.o. -Gender: F -Prednisone use: No - [...] with above. The patient was located in [place] at the time of their visit. TIME SPENT WITH PATIENT Time spent reviewing records prior to this encounter on the day of the encounter: 5 minutes Time spent face to face with patient on the day of the encounter: 33 minutes Total time day of encounter: 38 minutes Damaris Mya MD 09/08/21 Damaris May MD Senior Principalhybrid powertrain development engineer Section of Gastroenterology and Hepatology [facility] [email or web address] (p) documented in this encounter Plan of Treatment Scheduled Orders Name Type Priority Associated Diagnoses Orde r Schedule ENDOSCOPY CASE REQUEST: COLONOSCOPY, DIAGNOSTIC Procedures Routine Crohn's disease of small intestine with other complication Ordered: 09/08/2021 Scheduled Procedures Name Priority Associated Diagnoses Date/Ti me COLONOSCOPY, DIAGNOSTIC (WRV U 3.26) Crohn's disease of small intestine with other complication documented as of this encounter Visit Diagnoses Diagnosis Crohn's disease of perianal region with complication Crohn's disease of small intestine with other complication Anemia, unspecified type documented in this encounter Care Teams Manual Control Auger Press Operator Relationship Specialty Start Date End Date None None PCP - General 09/08/21 documented as of this encounter
--- OUTSIDE RECORDS SUMMARY | 2023-10-14 01:04 | XMS_ITS | Encounter Summary ---
[place] [address] Care Team Providers Care Electrician Journeyman Wireman Name Role Phone Maria Dolores Delong MD Primary Care Provider [phone] Encounter Details Date Type Department Care Team (Late st Contact Info) Description 03/25/2021 Telephone [place] [address] Sarbjit Morales RN Social History Tobacco Use [...] Telephone Encounter - Sarbjit Morales RN - 03/25/2021 1:20 PM EST Wilfredo leaves a message asking if she should start the new medication that's at her pharmacy. Assuming she is talking about budesonide, Dr. May's instructions are I don't want you to start until 2 weeks after the second dose of your vaccine. Attempted to call Shawn. LYON with above. Sent her myD-H message as well. documented in this encounter Plan of Treatment Scheduled Procedures Name Priority Associated Diagnoses Date/Ti me COLONOSCOPY, DIAGNOSTIC (WRV U 3.26) Crohn's disease of small intestine with other complication documented as of this encounter Visit Diagnoses Not on filedocumented in this encounter Care Teams Electrician Journeyman Wireman Relationship Specialty Start Date End Date Maria Dolores Delong MD [facility] [address] CHILD ADVOCACY [place] [address] PCP - General 02/11/10 09/07/21 documented as of this encounter
--- OUTSIDE RECORDS SUMMARY | 2023-10-14 01:04 | XMS_ITS | Encounter Summary ---
[place] [address] Care Team Providers Care Chief Strategy Officer Name Role Phone Maria Dolores Delong MD Primary Care Provider Encounter Details Date Type Department Care Team (Late st Contact Info) Description 01/21/2021 Telephone [place] [phone] Sherie Mendoza CMA GASTROENTEROLOGY DEPT Social History Tobacco Use Types Packs/Day Years Used Date Smoking Tobacco: Former Cigarettes Smokeless Tobacco: Never Sex and Gender Information Value Date Recorded Sex Assigned at Female 01/20/2021 12:59 PM EDT Gender Identity Female 01/20/2021 12:59 PM EDT Sexual Orientation Straight 01/20/2021 12 :59 PM EDT documented as of this encounter Miscellaneous Notes * Telephone Encounter - Sherie Mendoza CMA - 01/21/2021 9:27 AM EDT Called patient to review medications and allergies [...] on filedocumented in this encounter Care Teams Chief Strategy Officer Relationship Specialty Start Date End Date Maria Dolores Delong MD [facility] CHILD ADVOC[facility]Y [place] [address] PCP - General 02/11/10 09/07/21 documented as of this encounter
--- OUTSIDE RECORDS SUMMARY | 2023-10-14 01:04 | XMS_ITS | Encounter Summary ---
Author Organization [facility] [place] [address] Care Team Providers Care Water Trainer Name Role Phone Maria Dolores Delong MD Primary Care Provider [phone] Encounter Details Date Type Department Care Team (Late st Contact Info) Description 01/27/2021 [place] [address] Roberto Portillo MD [facility] DIAGNOSTIC [place] [address] Social History Tobacco Use Types Packs/Day Years [...] on filedocumented in this encounter Care Teams Water Trainer Relationship Specialty Start Date End Date Maria Dolores Delong MD [facility]ILD [facility] [place] [address] PCP - General 02/11/10 09/07/21 documented as of this encounter
--- OUTSIDE RECORDS SUMMARY | 2023-10-14 01:04 | XMS_ITS | Encounter Summary ---
[place] [address] Care Team Providers Care Wind Operations Manager Name Role Phone Maria Dolores Delong MD Primary Care Provider [phone] Encounter Details Date Type Department Care Team (Late st Contact Info) Description 02/12/2021 Telephone [place] [phone] Jacklyn Morgan RN Social History Tobacco Use [...] Telephone Encounter - Jacklyn Morgan RN - 02/12/2021 10:15 AM EST Wilfredo calls because she saw her path results come up on the patient portal and would like clarification what this means in terms of diagnosis and treatment plan documented in this encounter Plan of Treatment Scheduled Procedures Name Priority Associated Diagnoses Date/Ti me COLONOSCOPY, DIAGNOSTIC (WRV U 3.26) Crohn's disease of small intestine with other complication documented as of this encounter Visit Diagnoses Not on filedocumented in this encounter Care Teams Wind Operations Manager Relationship Specialty Start Date End Date Maria Dolores Delong MD [facility] CHILD ADVOCACY [facility] [place] [address] PCP - General 02/11/10 09/07/21 documented as of this encounter
--- OUTSIDE RECORDS SUMMARY | 2023-10-14 01:04 | XMS_ITS | Encounter Summary ---
Author Organization [facility] [address] Care Team Providers Care Fruit Trimmer Name Role Phone Maria Dolores Delong MD Primary Care Provider [phone] Encounter Details Date Type Department Care Team (Late st Contact Info) Description 01/31/2021 1:02 PM EST - 01/31/2021 2:12 PM EST [place] [address] Damaris May MD [facility] [place] [address] COLONOSCOPY, DIAGNOSTIC (WRVU 3.26) Social History Tobacco Use Types Packs/Day Years [...] occurs, please contact your Doctor. Please call [phone] before 8pm Mon-Fri with problems, questions or concerns. If you call after 8pm or on weekends, call the Hospital at [phone] and ask to speak to the Electrician Front environmental marketer and the concrete saw operator will contact that person for you. When should you call for help? Call [phone] anytime you think you may need emergency [...] any problems. Where can you learn more? [facility] View your After Visit Summary and more online at [email or web address] If you would like to provide feedback [...] cost to you. Content Version: 12.2 ?? 0825-8504 [employer]. Care instructions adapted under license by [facility]. If you have questions about a medical condition or this instruction, always ask your healthcare professional. [employer] disclaims any warranty or liability for your [...] Routine 01/31/2021 1:38 PM EST Colonoscopy, Biopsy ([id number]) 01/31/2021 1:07 PM EST Chronic anal fissure Colonoscopy, Diagnostic ([id number]) 01/31/2021 1:07 PM EST Chronic anal fissure COLONOSCOPY Routine 01/31/2021 12:43 PM EST documented in this encounter Results * Specimen to Pathology (01/31/2021 1:55 PM EST) AP Specimen 01/31/2021 1:55 PM EST 01/31/2021 1:55 PM EST Narrative [facility] - 01/31/2021 1:55 PM EST Specimen requisition ordered. ??Separate Pathology report to follow Damaris May MD PATHOLOGY/CYTOLOGY O DOYLE Performing Organization Address City/State/[facility] Co de Phone Number [facility] [place] [address] * Specimen to Pathology (01/31/2021 1:55 PM EST) AP Specimen 01/31/2021 1:55 PM EST 01/31/2021 1:55 PM EST Narrative [facility] - 01/31/2021 1:55 PM EST Specimen requisition ordered. ??Separate Pathology report to follow Damaris May MD PATHOLOGY/CYTOLOGY O RDERABLES Performing Organization Address City/[facility] Co de Phone Number [facility] [place] [address] * Specimen to Pathology (01/31/2021 1:55 PM EST) AP Specimen 01/31/2021 1:55 PM EST 01/31/2021 1:55 PM EST Narrative [facility] - 01/31/2021 1:55 PM EST Specimen requisition ordered. ??Separate Pathology report to follow Damaris May MD PATHOLOGY/CYTOLOGY O RDERABLES Performing Organization Address [facility] Co de Phone Number [facility] [place] [address] * Surgical Pathology Report (01/31/2021 1:38 PM EST) FINAL DIAGNOSIS (AP) [id number] ? Location: 4; EA07; A The signing pathologist has (i) [...] Sarah Verified: ??02/07/2021 15:02 ??Pathologist Performed at: ??-[facility] Dept. of Pathology, [place], [place] DISCUSSION The histologic features are consistent [...] labeled C1. ??MLL 02/07/2021 3:02 PM EST [facility] 01/31/2021 1:38 PM EST Damaris May MD PATHOLOGY/CYTOLOGY O RDERABLES [facility] [place] [address] * COLONOSCOPY (01/31/2021 12:43 PM EST) COLONOSCOPY [facility] Endoscopy Procedure Date: 01/31/2021 12:43 PM ? Patient Name: Wilfredo Niño ? Date of : 1985 ? Age: 35 ? Order #: [id number] ? Instrument Name: [id number] ? Procedure: ? Colonoscopy Indications: ? Suspected [...] preparation was evaluated using the ? BBPS ([place] Bowel Preparation Scale) ? with scores of: [...] PROVATION documented in this encounter Visit Diagnoses Diagnosis Chronic anal fissure Anal fissure documented in this encounter Administered Medications Inactive Administered Medications - up to 3 most recent administrations Medication Order MAR Action Action Date Dose Rate Site fentaNYL (pf) (50 mcg/mL) multi-dose injection ONCE PRN, Starting on Wed01/31/21 at 1310, Until Wed01/31/21 at 1632, Intra-Operative (Intra-Procedure), Routine Given 01/31/2021 1:25 PM EST 50 mcg Right Arm Given 01/31/2021 1:21 PM EST 50 mcg Ri ght Arm Given 01/31/2021 1:16 PM EST 50 mcg Ri ght Arm lactated ringers infusion 100 mL/hr, Intravenous, CONTINUOUS, Starting on Wed01/31/21 at 1300, Until Wed01/31/21 at 1415, Endoscopy (Day of Procedure) New Bag 01/31/2021 12:36 PM EST 100 mL/hr 100 mL/hr midazolam (pf) (Versed) (1 mg/mL) multi-dose injection ONCE PRN, Starting on Wed01/31/21 at 1310, Until Wed01/31/21 at 1632, Intra-Operative (Intra-Procedure), Routine Given 01/31/2021 1:21 PM EST 1 mg Given 01/31/2021 1:16 PM EST 1 mg Given 01/31/2021 1:13 PM EST 1 mg documented in this encounter Active and Recently Administered Medications Times are shown in EST. Continuous Medication Order 01/29/2021 01/30/2021 01/31/2021 lactated ringers infusion (CANCELED) 100 mL/hr, Intravenous, CONTINUOUS, Starting on Wed01/31/21 at 1300, Until Wed01/31/21 at 1415, Endoscopy (Day of Procedure) 1236 (New Bag - Prov ider: Monique Snell RN) PRN Medication Order 01/29/2021 01/30/2021 01/31/2021 fentaNYL [...] RN) documented in this encounter Care Teams Fruit Trimmer Relationship Specialty Start Date End Date Maria Dolores Delong MD [facility] DR CHILD ADVOCACY & [place] [address] PCP - General 02/11/10 09/07/21 documented as of this encounter
--- OUTSIDE RECORDS SUMMARY | 2023-10-14 01:04 | XMS_ITS | Encounter Summary ---
Author Organization [facility] [place] [address] Care Team Providers Care Industrial Chemist Name Role Phone None Primary Care Provider Unavailabl e Encounter Details Date Type Department Care Team (Late st Contact Info) Description 12/16/2021 Notes Only Gastroenterology at [facility] [place] [address] Jacklyn Morgan RN Social History Tobacco Use [...] as of this encounter Progress Notes * Jacklyn Morgan RN - 12/16/2021 12:45 PM EDT Orders sent to [facility] for remicade 300 mg IV every 8 weeks per request of Wilfredo. documented in this encounter Plan of Treatment Scheduled Procedures Name Priority Associated Diagnoses Date/Ti me COLONOSCOPY, DIAGNOSTIC (WRV U 3.26) Crohn's disease of small intestine with other complication documented as of this encounter Visit Diagnoses Not on filedocumented in this encounter Care Teams Industrial Chemist Relationship Specialty Start Date End Date None None PCP - General 09/08/21 documented as of this encounter
--- OUTSIDE RECORDS SUMMARY | 2023-10-14 01:04 | XMS_ITS | Encounter Summary ---
[place] [address] Care Team Providers Care Retail Associate Name Role Phone Maria Dolores Delong MD Primary Care Provider [phone] Reason for Referral * Diagnostic Test (Routine) - Closed Specialty Diagnoses / Procedures Referred By Contac t Referred To Contact Radiology Diagnoses Chronic anal fissure Procedures MRI Pelvis Soft Tissue (GI KETTLE TENDER) wwo Contrast MRI Pelvis Soft Tissue (GI KETTLE TENDER) w Contrast Skye Nieves APRN [facility] DR GASTROENTER[place] [address] [place] [address] Referral ID Status Reason Start Date Expiration Date V isits Requested Visits Authorized [id number] Closed Specialty Service Requested 01/21/2021 07/21/2022 1 1 Reason for Visit * Consultation (Routine) - Closed Specialty Diagnoses / Procedures Referred By Contac t Referred To Contact Gastroenterology Diagnoses Crohn's disease of perianal region with other complication New diagnosis perianal Crohn's disease. Seen in colorectal for fissures - has atypical disease and biopsies consistent with Crohn's. Has had flex sig at [facility]SH Damaris Trimble MD [facility] [place] [address] [facility] [place] [address] [address] Referral ID Status Reason Start Date Expiration Date V isits Requested Visits Authorized [id number] Closed Consult, Test & Treat 12/07/2020 12/07/2021 1 1 Encounter Details Date Type Department Care Team (Latest Contact Info) Description 01/21/2021 1:30 PM EDT TH Visit (TeleHealth) [place] [address] Skye Nieves, MACHINE OPERATOR GENERAL [facility] GASTROENTER[place] [address] Chronic anal fissure Social History Tobacco Use Types Packs/Day Years Used Date Smoking Tobacco: Former Cigarettes Smokeless Tobacco: Never Sex and Gender Information Value Date Recorded Sex Assigned at Female 01/20/2021 12:59 PM EDT Gender Identity Female 01/20/2021 12:59 PM EDT Sexual Orientation Straight 01/20/2021 12 :59 PM EDT documented as of this encounter Progress Notes * Skye Nieves, MACHINE OPERATOR GENERAL - 01/21/2021 1:30 PM EDT [facility] Gastroenterology Telehealth Visit Primary care provider: Maria Dolores Delong MD Referring provider: Dr. Damaris Trimble Reason for visit: suspected Crohn's disease, for evaluation Problem List Patient Active Problem List Diagnosis Date Noted ??? 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 History of Present Illness: Wilfredo Niño is a 35 yo woman with h/o anal pain and bleeding with associated skin tags that has been increasing in size for about a year now who saw Dr. Damaris Trimble, Colorectal surgeon and underwent Anoscopy: Findings include: no evidence of proctitis. Multiple fissures - posterior, left anterior, right anterior. Pathology showed epithelioid granulomas. She was referred to our IBD Center for further work up and evaluation for Crohn's disease. She reports no prior history of constipation and her anal pain, fissure came on suddenly about a year ago. She saw a cover remover in ID in June this year and had a flex-sigmoidoscopy found chronic anal fissure and she was referred to see colorectal surgery with Dr Damaris Trimble here at [facility] with above findings. She has not tried any medication for the anal fissure per patient. Her bowels have been unchanged for the past couple of years. BM 3-4x/day. She drinks plenty of fluids to keep her stool soft to loose to avoid painful defecation. She notes blood on the stool from the fissure on wiping. No nocturnal BM. No abdominal pain. She is eating. Weight stable. No nausea/vomiting No fever/chills. ?? Review of systems as in the HPI, the rest of the review of systems were negative. 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 Quit smoking 10+ years ago 2 drinks of ETOH, trying to cut back FH: No colorectal cancer nor other GI malignancies. No IBD No outpatient medications prior to visit. No facility-administered medications prior to visit. Allergies/Adverse reactions Patient has no known allergies. No Physical Examination Performed Recent labs Office Visit on 11/29/2020 Component Date Value Ref Range Status ??? Surgical Pathology Report 11/29/2020 Final Value:[id number] Location: 4L The signing pathologist has (i) [...] MD Verified: 12/06/2020 16:16 Pathologist Performed at: -[facility] Dept. of Pathology, [place], [place] ADDITIONAL STUDIES Whole slide scan: A1 [...] imaging As in detailed in history above Impression/Plan Wilfredo Niño is a 35 yo woman with h/o anal pain and bleeding with associated skin tags that has been increasing in size for about a year now who saw Dr. Damaris Trimble, Colorectal surgeon and underwent Anoscopy: Findings include: no evidence of proctitis. Multiple fissures - posterior, left anterior, right anterior. Pathology showed epithelioid granulomas. She was referred to our IBD Center for evaluation of Crohn's disease. We discussed further work up to evaluate possibility of Crohn's disease. Once we have clear diagnosis then will discuss Crohn's treatment options that include biologic agent. For now, - Labs: CBC, CMP, ESR, CRP, QTB, hepBSAg, hepBSAb, hepC Ab - Stool studies: Culture, C diff and calprotectin - Colonoscopy - MRI pelvis and MRE - will try Nifedipine ointment, 0.2 % in Aquaphor or plastibase. Apply pea size amount twice daily x 6 weeks - Sitz bath QID or after each BM. - F/U with Dr. Gonzales 30 minutes of this 30 minute telehealth appointment were spent in direct counseling regarding treatment of patient's gastroenterology concern. Please contact me if there are any further questions regarding the care of this patient. Brittni Nieves APRN [facility] Section of Gastroenterology and Hepatology [address] [address] documented in this encounter Plan of Treatment Scheduled Orders Name Type Priority Associated Diagnoses Orde r Schedule ENDOSCOPY CASE REQUEST: COLONOSCOPY, DIAGNOSTIC Procedures Routine Chronic anal fissure Ordered: 01/21/2021 Scheduled Procedures Name Priority Associated Diagnoses Date/Ti me COLONOSCOPY, DIAGNOSTIC (WRV U 3.26) Crohn's disease of small intestine with other complication documented as of this encounter Results * MRI Pelvis Soft Tissue (GI KETTLE TENDER) wwo Contrast (02/27/2021 10:56 AM EST) Anatomical Region Laterality Modality Pelvis Magnetic Resonan ce Addenda Addendum by Hector Dias MD on 03/04/2021 9:11 AM EST --------ADDENDUM #1-------- On second review, the small cyst is adjacent to the tip of the coccyx. Differential includes epidermal inclusion cyst and pilonidal cyst. No adjacent inflammation. Thank you for letting us participate in the care of this patient. ??If you are a health care provider and have any questions regarding this report, please contact the number below. ??For patients who have questions please contact the health childcare center administrator that requested your imaging first. ? --------ORIGINAL REPORT -------- EXAMINATION: MRI PELVIS SOFT TISSUE (GI KETTLE TENDER) WWO CONTRAST CLINICAL HISTORY: perianal pain with fissure, skin tag, ? Crohn's disease, ? fistula TECHNIQUE: Multisequence, multiplanar high-resolution MRI of the pelvis was performed prior to and following the intravenous administration of 13ml Dotarem. COMPARISON: None FINDINGS: Anal fistula: None. Ischioanal fossa: Normal signal; a 5 mm T2 hyperintense, T1 hypointense, nonenhancing cyst at the right posterolateral aspect (series 8 image 3). Peritoneum: No free fluid or loculated collection. Lymph nodes: No adenopathy. GI tract: No bowel wall thickening or dilatation. No adjacent inflammation. Reproductive structures: Multifibroid uterus with T2 hypointense, enhancing intramural leiomyomas. Largest in the posterior wall measuring 6 cm. Marrow signal: Normal. IMPRESSION: 1. ??No anal fistula. 2. ??Small perianal cyst. 3. ??Enlarged multi fibroid uterus with numerous, viable intramural fibroids. I have personally reviewed the image(s) and the resident's interpretation and agree with the findings, Hector Dias MD at 02/27/2021 3:58 PM Thank you for letting us participate in the care of this patient. ??If you are a health care provider and have any questions regarding this report, please contact the number below. ??For patients who have questions please contact the health childcare center administrator that requested your imaging first. ? Impressions 02/27/2021 3:58 PM EST 1. ??No anal fistula. 2. ??Small perianal cyst. 3. ??Enlarged multi fibroid uterus with numerous, viable intramural fibroids. I have personally reviewed the image(s) and the resident's interpretation and agree with the findings, Hector Dias MD at 02/27/2021 3:58 PM Thank you for letting us participate in the care of this patient. ??If you are a health care provider and have any questions regarding this report, please contact the number below. ??For patients who have questions please contact the health childcare center administrator that requested your imaging first. ? Narrative 02/27/2021 3:58 PM EST EXAMINATION: MRI PELVIS SOFT TISSUE (GI KETTLE TENDER) WWO CONTRAST CLINICAL HISTORY: perianal pain with fissure, skin tag, ? Crohn's disease, ? fistula TECHNIQUE: Multisequence, multiplanar high-resolution MRI of the pelvis was performed prior to and following the intravenous administration of 13ml Dotarem. COMPARISON: None FINDINGS: Anal fistula: None. Ischioanal fossa: Normal signal; a 5 mm T2 hyperintense, T1 hypointense, nonenhancing cyst at the right posterolateral aspect (series 8 image 3). Peritoneum: No free fluid or loculated collection. Lymph nodes: No adenopathy. GI tract: No bowel wall thickening or dilatation. No adjacent inflammation. Reproductive structures: Multifibroid uterus with T2 hypointense, enhancing intramural leiomyomas. Largest in the posterior wall measuring 6 cm. Marrow signal: Normal. Procedure Note Hector Dias MD - 02/27/2021 EXAMINATION: MRI PELVIS SOFT TISSUE (GI KETTLE TENDER) WWO CONTRAST CLINICAL HISTORY: perianal pain with fissure, skin tag, ? Crohn's disease,? fistula TECHNIQUE: Multisequence, multiplanar high-resolution MRI of the pelviswas performed prior to and following the intravenous administration of 13mlDotarem. COMPARISON: None FINDINGS: Anal fistula: None. Ischioanal fossa: Normal signal; a 5 mm T2 hyperintense, T1 hypointense, nonenhancing cyst at the right posterolateral aspect (series 8 image 3). Peritoneum: No free fluid or loculated collection. Lymph nodes: No adenopathy. GI tract: No bowel wall thickening or dilatation. No adjacentinflammation. Reproductive structures: Multifibroid uterus with T2 hypointense,enhancing intramural leiomyomas. Largest in the posterior wall measuring 6 cm. Marrow signal: Normal. IMPRESSION 1. No anal fistula. 2. Small perianal cyst. 3. Enlarged multi fibroid uterus with numerous, viable intramuralfibroids. I have personally reviewed the image(s) and the resident's interpretationand agree with the findings, Hector Dias MD at 02/27/2021 3:58 PM Thank you for letting us participate in the care of this patient. If youare a health care provider and have any questions regarding this report,please contact the number below. For patients who have questions please contactthe health childcare center administrator that requested your imaging first. Skye Nieves MACHINE OPERATOR GENERAL IMG MRI ORDERABLE S documented in this encounter Visit Diagnoses Diagnosis Chronic anal fissure Anal fissure Chronic anal fissure Anal fissure documented in this encounter Care Teams Retail Associate Relationship Specialty Start Date End Date Maria Dolores Delong MD [facility] CHILD ADVOCACY & [place] [address] PCP - General 02/11/10 09/07/21 documented as of this encounter
--- OUTSIDE RECORDS SUMMARY | 2023-10-14 01:04 | XMS_ITS | Encounter Summary ---
Author Organization [facility] [place] [address] Care Team Providers Care Multilith Operator Name Role Phone Maria Dolores Delong MD Primary Care Provider [phone] Encounter Details Date Type Department Care Team (Late st Contact Info) Description 02/06/2021 Telephone [place] [id number] Shirley Boyd Social History Tobacco Use Types Packs/Day Years [...] encounter Miscellaneous Notes * Telephone Encounter - Shirley Boyd - 02/06/2021 1:25 PM EST The patient's mother contacted the office this afternoon asking to speak with Adia Nieves. The patient's mother was informed that we have no personal rep form on file to speak to her on behalf of the patient. The patient came on the line and shared her displeasure with the care and treatment she has been receiving in the last two months. The patient was asked to stop using swear words during the conversation. The patient shared more unhappiness with GI and gave verbal permission for this typewriter repairer to speakher mother because the patient doesn't want to go into it. The patient's mother shared that she and her daughter feel that the patient has received no recommendations or any plans to move forward with the patient's care. The patient's mother stated that the patient has stopped eating because she is afraid to go to the bathroom due to the fact that the patient's skin is tearing near her rectum, she is unable to work and it is affecting her quality of life. The patient's mother declined to speak with the nursing staff when offered because she didn't know what they could do. She said she was surprised that her daughter has not received any care or relief at the [facility]. The patient's mother is aware a note is being sent to the team to inform. The patient can be reached at [phone]. documented in this encounter Plan of Treatment Scheduled Procedures Name Priority Associated Diagnoses Date/Ti me COLONOSCOPY, DIAGNOSTIC (WRV U 3.26) Crohn's disease of small intestine with other complication documented as of this encounter Visit Diagnoses Not on filedocumented in this encounter Care Teams Multilith Operator Relationship Specialty Start Date End Date Maria Dolores Delong MD [facility] DR CHILD ADVOCACY & [place] [address] PCP - General 02/11/10 09/07/21 documented as of this encounter
--- OUTSIDE RECORDS SUMMARY | 2023-10-14 01:04 | XMS_ITS | Encounter Summary ---
Author Organization [facility] [place] [address] Care Team Providers Care Manager Trust Name Role Phone None Primary Care Provider Unavailabl e Encounter Details Date Type Department Care Team (Late st Contact Info) Description 09/17/2021 Telephone [place] [phone] Lynn Ness Social History Tobacco Use Types Packs/Day Years [...] encounter Miscellaneous Notes * Telephone Encounter - Lynn Ness - 09/17/2021 12:38 PM EDT Left message. Need to schedule follow-up with Adia in December documented in this encounter Plan of Treatment Scheduled Procedures Name Priority Associated Diagnoses Date/Ti me COLONOSCOPY, DIAGNOSTIC (WRV U 3.26) Crohn's disease of small intestine with other complication documented as of this encounter Visit Diagnoses Not on filedocumented in this encounter Care Teams Manager Trust Relationship Specialty Start Date End Date None None PCP - General 09/08/21 documented as of this encounter
--- OUTSIDE RECORDS SUMMARY | 2023-10-14 01:04 | XMS_ITS | Encounter Summary ---
Author Organization [facility] [place] [address] Care Team Providers Care Road Engineer Freight Name Role Phone Maria Dolores Delong MD Primary Care Provider [phone] Reason for Visit * Reason Onset Date Comments Medication Refill 02/06/2021 Encounter Details Date Type Department Care Team (Late st Contact Info) Description 02/06/2021 [place] [address] Jacklyn Morgan, RN Social History Tobacco Use Types Packs/Day [...] on filedocumented in this encounter Care Teams Road Engineer Freight Relationship Specialty Start Date End Date Maria Dolores Delong MD [facility] CHILD ADVOCACY [employer] [place] [address] PCP - General 02/11/10 09/07/21 documented as of this encounter
--- OUTSIDE RECORDS SUMMARY | 2023-10-14 01:04 | XMS_ITS | Encounter Summary ---
[place] [address] Care Team Providers Care Creative Services Intern Name Role Phone Maria Dolores Delong MD Primary Care Provider [phone] Encounter Details Date Type Department Care Team (Late st Contact Info) Description 02/18/2021 Telephone [place] [phone] Sherie Mendoza CMA GASTROENTEROLOGY DEPT Social History [...] Telephone Encounter - Sherie Mendoza CMA - 02/18/2021 3:44 PM EST Called patient to review medications and [...] on filedocumented in this encounter Care Teams Creative Services Intern Relationship Specialty Start Date End Date Maria Dolores Delong MD [facility] CHILD ADVOCACY & [place] [address] PCP - General 02/11/10 09/07/21 documented as of this encounter
--- OUTSIDE RECORDS SUMMARY | 2023-10-14 01:04 | XMS_ITS | Encounter Summary ---
Author Organization [facility] [place] [address] Care Team Providers Care Donor Floor Technician Name Role Phone Maria Dolores Delong MD Primary Care Provider [phone] Reason for Visit * Reason Onset Date Comments Prior Authorization 02/20/2021 Encounter Details Date Type Department Care Team (Late st Contact Info) Description 02/20/2021 Telephone [place] [address] Jacklyn Morgan RN Prior Authorization Social History Tobacco Use Types [...] Telephone Encounter - Sarbjit Morales RN - 02/27/2021 12:27 PM EST Notification received that patient must have tried at least 2 of the following drug classes previously with treatment failure or adverse reaction: amino salicylates, antiobiotics, corticosteroids, and immunomodulators. * Telephone Encounter - Jacklyn Morgan RN - 02/20/2021 11:04 AM EST Prior Authorization Facility: [facility] TIN: [id number] [place] Medicaid ID# for facility: [id number] Medication: Remicade J-code: [id number] Dosage: 300 mg Frequency & Route: IV week 0,2,6, then every 8 weeks Insurance & Phone #: [place] medicaid ID #: [id number] Trialed (dosage, frequency): Diagnosis/ICD-10: new dx crohns Notes: Sent to [facility] with notes documented in this encounter Plan of Treatment Scheduled Procedures Name Priority Associated Diagnoses Date/Ti me COLONOSCOPY, DIAGNOSTIC (WRV U 3.26) Crohn's disease of small intestine with other complication documented as of this encounter Visit Diagnoses Not on filedocumented in this encounter Care Teams Donor Floor Technician Relationship Specialty Start Date End Date Maria Dolores Delong MD [facility] [address] CHILD ADVOCACY & [place] [address] PCP - General 02/11/10 09/07/21 documented as of this encounter
--- OUTSIDE RECORDS SUMMARY | 2023-10-14 01:04 | XMS_ITS | Encounter Summary ---
Author Organization [place] [id number] Care Team Providers Care Utility Worker Roller Shop Name Role Phone None Primary Care Provider Unavailabl e Reason for Referral * Consultation (Routine) - Closed Specialty Diagnoses / Procedures Referred By Contashley t Referred To Contact General Surgery Diagnoses Crohn's disease with complication, unspecified gastrointestinal tract location Lynn Cedeño DO [address] [place] [address] [place] [address] [facility] [address] [address] Referral ID Status Reason Start Date Expiration Date V isits Requested Visits Authorized [id number] Closed Consult, Test & Treat PCP Updated and/or Approved 01/14/2022 01/14/2023 6 6 Encounter Details Date Type Department Care Team (Latest Contact Info) Description 01/14/2022 Transcribe Orders eDH Incoming Referrals [phone] Lynn Cedeño DO [address] [place] [phone] Crohn's disease with complication, unspecified gastrointestinal tract [...] Associated Diagnoses Orde r Schedule Referral to Colorectal Surgery Outpatient Referral Routine Crohn's disease with complication, unspecified gastrointestinal tract location Ordered: 01/14/2022 documented as of this encounter Visit Diagnoses Diagnosis Crohn's disease with complication, unspecified gastrointestinal tract location documented in this encounter Care Teams Utility Worker Roller Shop Relationship Specialty Start Date End Date None None PCP - General 09/08/21 documented as of this encounter
--- OUTSIDE RECORDS SUMMARY | 2023-10-14 01:04 | XMS_ITS | Encounter Summary ---
Author Organization [facility]ly [facility] [place] [address] Care Team Providers Care Patternmaker Name Role Phone Maria Dolores Delong MD Primary Care Provider [phone] Reason for Visit * Reason Onset Date Comments Medication Refill 02/06/2021 Encounter Details Date Type Department Care Team (Late st Contact Info) Description 02/06/2021 Ref[place] [address] Skye Nieves APRN [facility] DR [place] [address] Social History Tobacco Use Types Packs/Day Years [...] on filedocumented in this encounter Care Teams Patternmaker Relationship Specialty Start Date End Date Maria Dolores Delong MD [facility] DR CHILD ADVOCACY & [place] [address] PCP - General 02/11/10 09/07/21 documented as of this encounter
--- OUTSIDE RECORDS SUMMARY | 2023-10-14 01:04 | XMS_ITS | Encounter Summary ---
[place] [address] Care Team Providers Care Investment Officer Name Role Phone Maria Dolores Delong MD Primary Care Provider [phone] Encounter Details Date Type Department Care Team (Late st Contact Info) Description 03/13/2021 Telephone [place] [phone] Lynn Ness Social History Tobacco Use Types [...] * Telephone Encounter - Lynn Ness - 03/13/2021 3:57 PM EST Spoke with patient to set up appointment to see Adia in Apr and Dr. May in spring. She asked that we hold off, she is going to message Dr. May to talk with her before she schedules anything. She will call us to schedule. documented in this encounter Plan of Treatment Scheduled Procedures Name Priority Associated Diagnoses Date/Ti me COLONOSCOPY, DIAGNOSTIC (WRV U 3.26) Crohn's disease of small intestine with other complication documented as of this encounter Visit Diagnoses Not on filedocumented in this encounter Care Teams Investment Officer Relationship Specialty Start Date End Date Maria Dolores Delong MD [facility] CHILD ADVOCACY & [place] [address] PCP - General 02/11/10 09/07/21 documented as of this encounter
--- OUTSIDE RECORDS SUMMARY | 2023-10-14 01:04 | XMS_ITS | Encounter Summary ---
Author Organization [facility]ly [facility] [place] [address] Care Team Providers Care Christmas Tree Farmer Name Role Phone None Primary Care Provider Unavailabl e Encounter Details Date Type Department Care Team (Late st Contact Info) Description 10/27/2021 Telephone [place] [phone] Irene Landis RN Social History Tobacco Use [...] Telephone Encounter - Irene Landis RN - 10/27/2021 11:54 AM EDT TC to [facility] lab regarding incorrect test run for Thiopurine metabolites. Spoke with Lesley from lab. Charges will be reversed from Wilfredo's account and a draw charge will be waived when she returns in one month to get test drawn. TC to Wilfredo to let her know the update. documented in this encounter Plan of Treatment Scheduled Procedures Name Priority Associated Diagnoses Date/Ti me COLONOSCOPY, DIAGNOSTIC (WRV U 3.26) Crohn's disease of small intestine with other complication documented as of this encounter Visit Diagnoses Not on filedocumented in this encounter Care Teams Christmas Tree Farmer Relationship Specialty Start Date End Date None None PCP - General 09/08/21 documented as of this encounter
--- OUTSIDE RECORDS SUMMARY | 2023-10-14 01:04 | XMS_ITS | Encounter Summary ---
[place] [address] Care Team Providers Care Television Inspector Name Role Phone Maria Dolores Delong MD Primary Care Provider [phone] Reason for Referral * Consultation (Routine) - Closed Specialty Diagnoses / Procedures Referred By Contac t Referred To Contact Gastroenterology Diagnoses Crohn's disease of perianal region with other complication New diagnosis perianal Crohn's disease. Seen in colorectal for fissures - has atypical disease and biopsies consistent with Crohn's. Has had flex sig at [facility] Damaris Trimble MD [facility] [place] [address] [facility] [place] [address] [address] Referral ID Status Reason Start Date Expiration Date V isits Requested Visits Authorized [id number] Closed Consult, Test & Treat 12/07/2020 12/07/2021 1 1 Encounter Details Date Type Department Care Team (Late st Contact Info) Description 12/07/2020 Telephone [place] [address] Damaris Trimble MD [facility] [place] [address] Social History Tobacco Use Types Packs/Day Years Used Date Smoking Tobacco: Former Cigarettes Smokeless Tobacco: Never Sex and Gender Information Value Date Recorded Sex Assigned at Female 01/20/2021 12:59 PM EDT Gender Identity Female 01/20/2021 12:59 PM EDT Sexual Orientation Straight 01/20/2021 12 :59 PM EDT documented as of this encounter Miscellaneous Notes * Telephone Encounter - Damaris Trimble MD - 12/07/2020 2:40 PM EDT I spoke with Wilfredo regarding her biopsy results. Perianal tags were biopsied in the office during evaluation for anal fissures that were atypical in appearance. Pathology showed epithelioid granulomas. I have recommended referral to gastroenterology for further work up and evaluation for Crohn's disease. Discussed that topical treatments for typical fissures would not likely be helpful for her type of fissures. More likely will need full colonoscopy, imaging, and discussion about systemic treatment. May be able to use topical treatments like steroids as an adjunct. She is hopeful that she can have the tags removed and we discussed that in the setting of Crohn's, removal of the tags could lead to non-healing large wounds and I strongly discouraged her against having these removed. She is interested in being seen by our IBD group at [facility] and a referral was placed. Damaris Trimble MD FACS FASCRS senior vice president Division of Colon and Rectal Surgery [facility] Pager [phone] ? Surgical Pathology DIAGNOSIS A - Anterior anal canal and right anterior skin tag, biopsy: - Benign anal skin with chronic inflammation and epithelioid granulomas, consistent ??with involvement by Crohn's disease if supported by clinical findings. B - Posterior anal margin skin, biopsy: - Benign anal skin. documented in this encounter Plan of Treatment Scheduled Procedures Name Priority Associated Diagnoses Date/Ti me COLONOSCOPY, DIAGNOSTIC (WRV U 3.26) Crohn's disease of small intestine with other complication Scheduled Referrals Name Type Priority Associated Diagnoses Order Schedule Referral to Gastroenterology Outpatient Referral Routine Crohn's disease of perianal region with other complication Ordered: 12/07/2020 documented as of this encounter Visit Diagnoses Diagnosis Crohn's disease of perianal region with other complication documented in this encounter Care Teams Television Inspector Relationship Specialty Start Date End Date Maria Dolores Delong MD [facility] DR CHILD ADVOCACY [place] [address] PCP - General 02/11/10 09/07/21 documented as of this encounter
--- OUTSIDE RECORDS SUMMARY | 2023-10-14 01:04 | XMS_ITS | Encounter Summary ---
Author Organization [facility] [place] [address] Care Team Providers Care Potato Seed Cutter Name Role Phone None Primary Care Provider Unavailabl e Encounter Details Date Type Department Care Team (Late st Contact Info) Description 11/12/2021 Telephone [place] [phone] Jacklyn Moragn RN Social History Tobacco Use Types Packs/Day [...] Telephone Encounter - Jacklyn Morgan RN - 11/12/2021 11:31 AM EDT Call placed to Wilfredo for an update on her disease and symptoms after the increase of her Remicade dosing to 600 mg every 8 weeks from 300 mg every 8 weeks due to partial response. She has had two doses so far at 600 mg every 8 weeks, due for reauth Dec 11, 2021 Recent Infliximab level 33 Wilfredo states she has been feeling better, bleeding has subsided and anal fissures are healing. Next follow up in clinic 12/15/[address]. Will submit for continuation of Prior Auth for Remicade 600 mg every 8 weeks in light of positive response with increased dosing, documented in this encounter Plan of Treatment Scheduled Procedures Name Priority Associated Diagnoses Date/Ti me COLONOSCOPY, DIAGNOSTIC (WRV U 3.26) Crohn's disease of small intestine with other complication documented as of this encounter Visit Diagnoses Not on filedocumented in this encounter Care Teams Potato Seed Cutter Relationship Specialty Start Date End Date None None PCP - General 09/08/21 documented as of this encounter
--- OUTSIDE RECORDS SUMMARY | 2023-10-14 01:04 | XMS_ITS | Encounter Summary ---
Author Organization [facility]oul [facility] [place] [address] Care Team Providers Care Aircraft Fueler Name Role Phone Maria Dolores Delong MD Primary Care Provider [phone] Reason for Visit * Reason Comments Medication Refill Encounter Details Date Type Department Care Team (Late st Contact Info) Description 08/26/2021 Refill [place] [address] Skye Nieves APRN [facility] [address] [place] [address] Crohn's disease of small intestine with other [...] complication documented in this encounter Care Teams Aircraft Fueler Relationship Specialty Start Date End Date Maria Dolores Delong MD [facility] CHILD ADVOCACY & [place] [address] PCP - General 02/11/10 09/07/21 documented as of this encounter
--- OUTSIDE RECORDS SUMMARY | 2023-10-14 01:04 | XMS_ITS | Encounter Summary ---
[place] [address] Care Team Providers Care Bar Gauger And Lubricator Tender Name Role Phone Maria Dolores Delong MD Primary Care Provider [phone] Encounter Details Date Type Department Care Team (Late st Contact Info) Description 04/21/2021 [place] [phone] Jacklyn Morgan RN Social History Tobacco Use [...] Telephone Encounter - Sarbjit Morales RN - 05/01/2021 10:11 AM EST Approved 04/21/21 - 07/19/21 For induction dosing Auth # [id number] Patient provided us with approval letter. Faxed to [facility]. Will need to resubmit PA for maintenance dosing after induction * Telephone Encounter - Sarbjit Morales RN - 04/28/2021 2:03 PM EST Faxed orders to [facility]. Note that PA is still pending * Telephone Encounter - Jacklyn Morgan RN - 04/21/2021 1:41 PM EST Prior Authorization ?? Facility: [facility] TIN: [id number] NPI:??[id number] [place] Medicaid ID# for facility: [id number] ?? Medication: Remicade J-code:??[id number] Dosage:??300 mg Frequency & Route: IV week 0,2,6, then every 8 weeks Insurance & Phone #:??[place] medicaid ID #:??[id number] Trialed (dosage, frequency):??budesonide, 6MP Diagnosis/ICD-10:?new dx crohns Notes: form and office notes faxed, marked as urgent documented in this encounter Plan of Treatment Scheduled Procedures Name Priority Associated Diagnoses Date/Ti me COLONOSCOPY, DIAGNOSTIC (WRV U 3.26) Crohn's disease of small intestine with other complication documented as of this encounter Visit Diagnoses Not on filedocumented in this encounter Care Teams Bar Gauger And Lubricator Tender Relationship Specialty Start Date End Date Maria Dolores Delong MD [facility] CHILD ADVOCACY [place] [address] PCP - General 02/11/10 09/07/21 documented as of this encounter
--- OUTSIDE RECORDS SUMMARY | 2023-10-14 01:04 | XMS_ITS | Encounter Summary ---
Author Organization [facility] [place] [address] Care Team Providers Care Meeting Manager Name Role Phone Maria Dolores Delong MD Primary Care Provider [phone] Encounter Details Date Type Department Care Team (Late st Contact Info) Description 01/27/2021 Telephone [place] [phone] Chanell Bernabe Social History Tobacco Use Types Packs/Day Years Used Date Smoking Tobacco: Former Cigarettes Smokeless Tobacco: Never Sex and Gender Information Value Date Recorded Sex Assigned at Female 01/20/2021 12:59 PM EDT Gender Identity Female 01/20/2021 12:59 PM EDT Sexual Orientation Straight 01/20/2021 12 :59 PM EDT documented as of this encounter Miscellaneous Notes * Telephone Encounter - Chanell Bernabe - 01/27/2021 12:39 PM EST Wilfredo Niño [phone] Diagnosis/Indication: H/O perianal fissure, skin tag for over a year, needs ot evaluate for possible Crohn's disease 1. Have you ever had a/an Colonoscopy before? No If yes, did you have any problems with the procedure? No What type of sedation was used: None 2. Do you take any blood thinners or have you been diagnosed with a bleeding disorder that increases your risk of bleeding with procedures? No 3. Do you have a Pacemaker or Defibrillator device? No 4. Are you a diabetic? No 5. Do you have any Allergies to Eggs, Latex or Medications? No 6. Do you take any Oral Iron Supplements (Including multi-vitamins)? Yes (Multivitamin) 7. Do you have a history of three or more abdominal surgeries? No 8. Have you had a problem with sedation or anesthesia? No 9. Do you use a c-pap machine or oxygen tank? Neither 10. Do you take prescription narcotic pain medications, including suboxone or methodone? No 11. Do you have a preference regarding the gender of your provider? Yes: Female 12. Is there any other information you would like to us to note for the provider and nursing team who will perform your case? Yes: [place]/ tags / Bleeding 13. Say to patient: You must have a responsible green party who will drive you to your procedure, stay [place] for the entire duration of your procedure, and drive you home from your procedure? *Please Verify the height and weight, and adjust if height and/or weight have changed* Estimated body mass index is 23.74 kg/m?? as calculated from the following: Height as of 11/29/20: 162.6 cm (5' 4). Weight as of 11/29/20: 62.7 kg (138 lb 4.8 oz). Age:35 y.o. documented in this encounter Plan of Treatment Scheduled Procedures Name Priority Associated Diagnoses Date/Ti me COLONOSCOPY, DIAGNOSTIC (WRV U 3.26) Crohn's disease of small intestine with other complication documented as of this encounter Visit Diagnoses Not on filedocumented in this encounter Care Teams Meeting Manager Relationship Specialty Start Date End Date Maria Dolores Delong MD [facility] CHILD ADVOCACY [place] [address] PCP - General 02/11/10 09/07/21 documented as of this encounter
--- OUTSIDE RECORDS SUMMARY | 2023-10-14 01:04 | XMS_ITS | Encounter Summary ---
Author Organization [facility] [place] [address] Care Team Providers Care Configuration Analyst Name Role Phone Maria Dolores Delong MD Primary Care Provider [phone] Encounter Details Date Type Department Care Team (Late st Contact Info) Description 05/20/2021 Orders [place] [address] Damaris May MD [facility] [place] [address] Social History Tobacco Use Types Packs/Day Years [...] on filedocumented in this encounter Care Teams Configuration Analyst Relationship Specialty Start Date End Date Maria Dolores Delong MD [facility] CHILD ADVOCACY & [place] [address] PCP - General 02/11/10 09/07/21 documented as of this encounter
--- OUTSIDE RECORDS SUMMARY | 2023-10-14 01:04 | XMS_ITS | Encounter Summary ---
Author Organization [facility] [place] [address] Care Team Providers Care Associate Director Of Development Name Role Phone None Primary Care Provider Unavailabl e Encounter Details Date Type Department Care Team (Late st Contact Info) Description 10/27/2021 Orders Only Gastroenterology at [facility] [place] [address] Irene Landis RN Crohn's disease of perianal region with complication; Anemia, unspecified type; Crohn's disease of small intestine with other [...] as of this encounter Progress Notes * Irene Landis RN - 10/27/2021 9:38 AM EDT lab documented in this encounter Plan of Treatment Scheduled Procedures Name Priority Associated Diagnoses Date/Ti me COLONOSCOPY, DIAGNOSTIC (WRV U 3.26) Crohn's disease of small intestine with other complication documented as of this encounter Visit Diagnoses Diagnosis Crohn's disease of perianal region with complication Anemia, unspecified type Crohn's disease of small intestine with other complication documented in this encounter Care Teams Associate Director Of Development Relationship Specialty Start Date End Date None None PCP - General 09/08/21 documented as of this encounter
--- OUTSIDE RECORDS SUMMARY | 2023-10-14 01:04 | XMS_ITS | Encounter Summary ---
Author Organization Formerly [facility] [place] [address] Care Team Providers Care Bench Hand Name Role Phone Maria Dolores Delong MD Primary Care Provider [phone] Encounter Details Date Type Department Care Team (Latest Contact Info) Description 03/03/2021 11:30 AM EST TH Visit (TeleHealth) [place] [address] Damaris May MD [facility] [place] [address] Crohn's disease of small intestine with other [...] * Patient Instructions* Damaris May MD - 03/03/2021 11:30 AM EST Recommend: ?? Nifedpine for 6 weeks - give us an update on how your fissures are doing at the end of this time ?? Lidocaine for 2 weeks ?? Hold off on protopic ?? Please please get your COVID vaccine KALYN - let us know when you do! ?? COVID precautions - wear a mask everywhere you go (preferably an N95), social distance, avoid large crowds and indoor settings, keep good hand hygiene ?? Blood tests: Check TPMT (to make sure it is safe for you to take an oral medication immunomodulator for Crohn's disease called 6-MP) & one more hepatitis B test (core antibody) KALYN - these orders have been sent to [facility] ?? Two weeks after your second COVID vaccine dose, we can start 6-MP and budesonide. Your insurancerequires that we use both of these medications BEFORE we can get you Remicade. ?? I recommend a short 8 week course of budesonide to treat the inflammation in your small intestine. Budesonide is a very mild steroid. Most people have zero side effects in the short term. It workslocally in the small intestine and not much of it is absorbed into the body. I already sent this [facility] pharmacy, so you can pick it up, but I don't want you to start until 2 weeks after the second dose of your vaccine. Budesonide should not have a significant impact on your immune system, but I am just being cautious here as we don't need to use it immediately. ?? I recommend we use 6-MP in combination with Remicade. As we discussed, this will help the Remicade work better and prevent antibodies to Remicade as you are starting up the medication. 6-MP is an immunomodulator (see below for more information about treatment and medications) so this does satisfy your insurance as well. You will be able to start this along with budesonide. Again, you want to wait 2 weeks after your second COVID vaccine dose to start it. This medication can reduce your body'sability to fight infections like COVID. We will use a low dose and you will have some good protection if you are vaccinated. We will need to monitor your blood tests regularly when you are on 6-MP: Every 2 weeks for 1 month, every month for 3 months, then every 3-4 months. I anticipate we will use this medication for 6 to 12 months and then we can likely stop it. ?? We should then be able to start Remicade which I think is what you need to heal the fissures. Blood test monitoring is important on this as well (initially every couple of weeks, then monthly, andthen every 3-6 months). ?? In , healthy mom = healthy baby. Please let's try to get your Crohn's under control over the next 6 months or so, so you can more safely get and have a healthy baby. These medications I am recommending are ALL safe in and when . ?? Continue to avoid smoking tobacco ?? Get a flu vaccine if you have not had ?? Take Vitamin D3 1,000 IU per day, eat a calcium-rich diet Follow-up: I would like you to have a visit with Adia a few weeks after you start 6-MP and then with me in the Spring. TREATMENT GOALS (1) Get rid of symptoms (induce remission) (2) Keep symptoms controlled (maintain remission) (3) Heal the intestines and perianal area (4) Prevent complications and damage to the intestines and perianal area (to prevent complications) EDUCATION ABOUT CROHNS DISEASE ?? Crohn???s disease is a lifelong disease that causes worsening damage to the intestines and perianal area over time. ?? Crohn's disease causes inflammation (redness, swelling, sores or ulcers) in the intestine. It can cause fissures, infections (abscesses) and fistulas in the perianal area. Inflammation that is nottreated leads to damage. ?? We don't have a cure for Crohn's diease, but we do have good treatments. ?? The earlier we start treatment of the inflammation, the better chance we have of preventing the damage from Crohn's disease. ?? The symptoms of Crohn???s disease can be different for different people. It depends on where theCrohn's is located. Sometimes it doesn't cause symptoms! Symptoms don't always match up with the disease inflammation. ?? Biologic medications are the most effective medications in Crohn's disease. TREATMENT Biologics ?? Anti-TNF: Humira (injectable) or Remicade (IV) ?? Anti-integrin: Vedolizumab (IV) ?? Anti-IL 12/23: Stelara (IV) Risks of anti-TNFs like Remicade ?? immediate and delayed injection site reactions ?? development of antibodies to the medication might reduce efficacy or promote allergic reactions ?? infection ?? Abnormal blood and liver tests ?? psoriasis and similar skin reactions, rarely a lupus-like syndrome ?? the rare possible risk of lymphoma is approximately 6 cases among 10,000 treated Crohn's diseasepatients (as opposed to baseline rate about 2/10,000) ?? very rare complications including demyelinating neurologic disease like MS ?? Slight increased risk of skin cancers (melanoma) Immunomodulators (immune suppressant to maintain remission) in combination with the above (1) 6-MP- oral (2) Methotrexate - oral - we should avoid this because you would like to get in the near future Some risks of 6-MP ?? More common side effects: Nausea, headache, fatigue, mild liver or blood tests abnormalities ?? Less common: Infection, severe abnormal liver blood tests or severe suppression of the bone marrow ?? Infrequent or rare: Severe liver injury, pancreatitis, lymphoma ?? Other: Non-melanoma skin cancer documented in this encounter Progress Notes * Damaris May MD - 03/03/2021 11:30 AM EST [facility] Section of Gastroenterology and Hepatology IBD Telemedicine Follow-Up Visit PCP: Maria Dolores Delong MD Referring provider: Adia Nieves NP Colorectal: Damaris Trimble MD HPI This is a 35 y.o. female former smoker who is engaging in follow-up for Crohn's disease manifestingas severe perianal fissures with histologic inactive proctitis and mild ileal disease. Patient's primary concern today: perianal pain - would like to heal the fissures; eventually would like to have skin tags removed Interval follow-up Doesn't feel sick Has perianal pain. Nifedipine BID - 2.5 weeks - has noticed some difference - less bleeding, frequently longer without bleeding. At the worst - anorectal bleeding would be oozing into her underwear -has not been like this in a couple of months Trying to stay more hydrated and eating differently, less bulky stools. Was sometimes having 5-6 BMs/day, now about 3 BMs/day, a little more formed on iron, soft. Sometimes the muscle feels like it is in spasm and tired - tries to avoid straining, noticed in thepast this straining would also cause bleeding Leans forward a bit, rests forearms on thighs Started doing some sitz baths - puts on over the toilet Concerned about side effects of meds with COVID. She is not vaccinated. Local to [facility] Tobacco: Former : would like to in the near future Review of systems: 14-point review of systems [...] to insurance ?? Colonoscopy done by me last month with prominent perianal skin tags, mild inflammation (congestion, erythema, erosion at the IC valve without stricture) with an area of normal mucosa followed by mild inflammation (congestion, erythema, aphthous ulcers for 5cm), normal colon except mild erythema in the distal rectum, path with mild chronic active ileitis and inactive chronic proctitis with normal colon biopsies. ?? MRI pelvis 02/27/2021 not noting any fistula but reporting a 5mm perianal cyst? ?? Baseline ESR 23 (normal < 20) ?? Perianal pain persists Patient Active Problem List Diagnosis Code ??? 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 lidocaine/hydrocortisone ac (lidocaine HCl-hydrocortison ac) 2 [...] external anal fissure twice daily x 8 weeks, Disp: 60 g, Rfl: 0 No Known Allergies No past medical history on file. Past Surgical History: Procedure Laterality Date ??? PRO COLONOSCOPY, BIOPSY N/A 01/31/2021 COLONOSCOPY FLEXIBLE, WITH BX (WRVU 3.66) performed by Damaris May MD at [facility] END[facility]COPY ??? PRO COLONOSCOPY, DIAGNOSTIC N/A 01/31/2021 COLONOSCOPY, DIAGNOSTIC performed by Damaris May MD at [facility] Social History Socioeconomic History ??? Marital [...] As noted above Impression: Wilfredo is a 35 y.o. female former smoker who is engaging in follow-up for Crohn's disease. [place] of disease and symptoms are perianal fissures (+granulomas on biopsy) and recurrent (skin tags) without detectable fistula on MRI pelvis. 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 Small perianal cyst on MRI, doubt this would be an abscess given the absence of a fistula. She does have mild inflammatory ileal disease with IC valve involvement. While some fissures could be treated adequately with standard topical treatments, I think Wilfredo needs Crohn's-directed therapy. [facility] data shows some individuals with fissures can go on to progress to fistulas and/or strictures, with granulomas being a marker of severity. Data suggests clinical response (reduction in anal pain) in patients with fissures can be rapid after induction with a biologic (infliximab) in a large percentage of patients (80%). See below. Recommend infliximab plus theaddition of 6-MP for a short duration 6 to 12 months. Insurance will only approve infliximab after steroid + immunomodulator. We can use a short course of budesonide for her ileal disease but this will not treat perianal disease, I do not want to get her on an immunomodulator at this time given sheis unvaccinated for COVID - she is ready to get the vaccine, erc [employer], will need to check TPMT and in about 6 weeks from vaccination we can start 6-MP and budesonide. See: Naomy Cohen et al continuous churn buttermaker outcome of non-fistulizing (ulcers, stricture) perianal Crohn's in patient's treated with infliximab 2008 (Retrospective review) Naomy Cohen et al Non-fistulzing perianal Crohn's disease: Clinical features, epidemiology and treatment 2009 Recommend: ?? Nifedpine for 6 weeks - give us an update on how your fissures are doing at the end of this time ?? Lidocaine for 2 weeks ?? Hold off on protopic ?? Please please get your COVID vaccine KALYN - let us know when you do! ?? COVID precautions - wear a mask everywhere you go (preferably an N95), social distance, avoid large crowds and indoor settings, keep good hand hygiene ?? Blood tests: Check TPMT (to make sure it is safe for you to take an oral medication immunomodulator for Crohn's disease called 6-MP) & one more hepatitis B test (core antibody) KALYN - these orders have been sent to [facility] ?? Two weeks after your second COVID vaccine dose, we can start 6-MP and budesonide. Your insurancerequires that we use both of these medications BEFORE we can get you Remicade. ?? I recommend a short 8 week course of budesonide to treat the inflammation in your small intestine. Budesonide is a very mild steroid. Most people have zero side effects in the short term. It workslocally in the small intestine and not much of it is absorbed into the body. I already sent this [facility] pharmacy, so you can pick it up, but I don't want you to start until 2 weeks after the second dose of your vaccine. Budesonide should not have a significant impact on your immune system, but I am just being cautious here as we don't need to use it immediately. ?? I recommend we use 6-MP in combination with Remicade. As we discussed, this will help the Remicade work better and prevent antibodies to Remicade as you are starting up the medication. 6-MP is an immunomodulator (see below for more information about treatment and medications) so this does satisfy your insurance as well. You will be able to start this along with budesonide. Again, you want to wait 2 weeks after your second COVID vaccine dose to start it. This medication can reduce your body'sability to fight infections like COVID. We will use a low dose and you will have some good protection if you are vaccinated. We will need to monitor your blood tests regularly when you are on 6-MP: Every 2 weeks for 1 month, every month for 3 months, then every 3-4 months. I anticipate we will use this medication for 6 to 12 months and then we can likely stop it. ?? We should then be able to start Remicade which I think is what you need to heal the fissures. Blood test monitoring is important on this as well (initially every couple of weeks, then monthly, andthen every 3-6 months). ?? In , healthy mom = healthy baby. Please let's try to get your Crohn's under control over the next 6 months or so, so you can more safely get and have a healthy baby. These medications I am recommending are ALL safe in and when . ?? Continue to avoid smoking tobacco ?? Get a flu vaccine if you have not had ?? Review MRI - ? Perianal cyst ?? Metro 10% gel would need to be compounded and likely not covered so can hold off Follow-up: I would like you to have a visit with Adia a few weeks after you start 6-MP and then with me in the Spring. TREATMENT GOALS (1) Get rid of symptoms (induce remission) (2) Keep symptoms controlled (maintain remission) (3) Heal the intestines and perianal area (4) Prevent complications and damage to the intestines and perianal area (to prevent complications) EDUCATION ABOUT CROHNS DISEASE ?? Crohn???s disease is a lifelong disease that causes worsening damage to the intestines and perianal area over time. ?? Crohn's disease causes inflammation (redness, swelling, sores or ulcers) in the intestine. It can cause fissures, infections (abscesses) and fistulas in the perianal area. Inflammation that is nottreated leads to damage. ?? We don't have a cure for Crohn's diease, but we do have good treatments. ?? The earlier we start treatment of the inflammation, the better chance we have of preventing the damage from Crohn's disease. ?? The symptoms of Crohn???s disease can be different for different people. It depends on where theCrohn's is located. Sometimes it doesn't cause symptoms! Symptoms don't always match up with the disease inflammation. ?? Biologic medications are the most effective medications in Crohn's disease. ?? Take Vitamin D3 1,000 IU per day, eat a calcium-rich diet TREATMENT Biologics ?? Anti-TNF: Humira (injectable) or Remicade (IV) ?? Anti-integrin: Vedolizumab (IV) ?? Anti-IL 12/23: Stelara (IV) Risks of anti-TNFs like Remicade ?? immediate and delayed injection site reactions ?? development of antibodies to the medication might reduce efficacy or promote allergic reactions ?? infection ?? Abnormal blood and liver tests ?? psoriasis and similar skin reactions, rarely a lupus-like syndrome ?? the rare possible risk of lymphoma is approximately 6 cases among 10,000 treated Crohn's diseasepatients (as opposed to baseline rate about 2/10,000) ?? very rare complications including demyelinating neurologic disease like MS ?? Slight increased risk of skin cancers (melanoma) Immunomodulators (immune suppressant to maintain remission) in combination with the above (1) 6-MP- oral (2) Methotrexate - oral - we should avoid this because you would like to get in the near future Some risks of 6-MP ?? More common side effects: Nausea, headache, fatigue, mild liver or blood tests abnormalities ?? Less common: Infection, severe abnormal liver blood tests or severe suppression of the bone marrow ?? Infrequent or rare: Severe liver injury, pancreatitis, lymphoma ?? Other: Non-melanoma skin cancer IBD Health Maintenance (updated periodically) (1) Colonoscopy / Colon cancer surveillance: -Colonic disease: histologic proctitis only (2) Tobacco use: former (3) Vaccinations: Focus on COVID vaccine -Flu: Recommend yearly. -PCV13 (Prevnar): -PPSV23 (Pneumovax) Adult patients with IBD receiving immunosuppressive therapy should receive pneumococcal vaccinationwith both the PCV-13 and PPSV23, in accordance with national guidelines. If no prior vaccination, given PCV-13 first followed > 8 weeks later by PPSV23. Repeat PPSV23 in 5 years but not twice before age 65yo. -HPV (under age 45yo): -Varicella exposure previously [...] -Prior use of AZA, MTX or anti-TNF: No -Dermatology: Will need follow-up moving forward (7) Bone Health Risk assessment -Age (M>50 or post-menopausal) -Gender: -Prednisone use: -Prior fracture: -Vitamin D: -Hypogonadism: -Bone mineral density screening exam (DEXA): Recommend at diagnosis and consider it every 2-3 years thereafter (8) Last pap smear if female: Women with IBD on immunosuppressive therapy should undergo annual cervical cancer screening. (9) Radiation exposure (CTs): The risks, benefits and alternatives were discussed with the patient who understands and agrees with above. The patient was located in [place] at the time of their visit. TIME SPENT WITH PATIENT Time spent during encounter with patient including counseling: Greater than 30 minutes Time spent documenting encounter after office visit: Greater than 10 minutes Total visit time: Greater than 40 minutes Damaris May MD 03/02/21 Damaris May MD Professor Of [employer] Section of Gastroenterology and Hepatology [facility] [email or web address]) documented in this encounter Plan of Treatment Scheduled Procedures Name Priority Associated Diagnoses Date/Ti me COLONOSCOPY, DIAGNOSTIC (WRV U 3.26) Crohn's disease of small intestine with other complication documented as of this encounter Visit Diagnoses Diagnosis Crohn's disease of small intestine with other complication Crohn's disease of perianal region with complication documented in this encounter Care Teams Bench Hand Relationship Specialty Start Date End Date Maria Dolores Delong MD [facility] [place] [address] PCP - General 02/11/10 09/07/21 documented as of this encounter
--- OUTSIDE RECORDS SUMMARY | 2023-10-14 01:04 | XMS_ITS | Encounter Summary ---
[place] [address] Care Team Providers Care Motorbike Courier Name Role Phone Maria Dolores Delong MD Primary Care Provider [phone] Reason for Referral * Diagnostic Test (Routine) - Closed Specialty Diagnoses / Procedures Referred By Contac t Referred To Contact Radiology Diagnoses Chronic anal fissure Procedures MRI Pelvis Soft Tissue (GI AUTOMATIC HEMMER) wwo Contrast MRI Pelvis Soft Tissue (GI AUTOMATIC HEMMER) w Contrast Skye Nieves APRN [facility] [place] [address] [place] [address] Referral ID Status Reason Start Date Expiration Date V isits Requested Visits Authorized [id number] Closed Specialty Service Requested 01/21/2021 07/21/2022 1 1 Reason for Visit * Diagnostic Test (Routine) - Closed Specialty Diagnoses / Procedures Referred By Contac t Referred To Contact Radiology Diagnoses Chronic anal fissure Procedures MRI Pelvis Soft Tissue (GI AUTOMATIC HEMMER) wwo Contrast MRI Pelvis Soft Tissue (GI AUTOMATIC HEMMER) w Contrast Skye Nieves APRN [facility] [place] [address] [place] [address] Referral ID Status Reason Start Date Expiration Date V isits Requested Visits Authorized [id number] Closed Specialty Service Requested 01/21/2021 07/21/2022 1 1 Encounter Details Date Type Department Care Team (Latest Contact Info) Description 02/27/2021 9:15 AM EST - 02/27/2021 11:59 PM EST Hospital [place] [address] Skye Nieves, [facility] [place] [address] Chronic anal fissure Discharge Disposition: Home Social History Tobacco Use [...] Sig Dispensed Refills Start Date End Date lidocaine/hydrocortiso ne ac (lidocaine HCl-hydrocortison ac) 2 %-2 % [...] 02/06/2021 04/16/2022 documented as of this encounter Plan of Treatment Scheduled Procedures Name Priority Associated Diagnoses Date/Ti me COLONOSCOPY, DIAGNOSTIC (WRV U 3.26) Crohn's disease of small intestine with other complication documented as of this encounter Procedures Procedure Name Priority Date/Time Associated Diagnosis Comments MRI PELVIS SOFT TISSUE (GI AUTOMATIC HEMMER) WWO CONTRAST Routine 02/27/2021 10:56 AM EST Chronic anal fissure documented in this encounter Results * MRI Pelvis Soft Tissue (GI AUTOMATIC HEMMER) wwo Contrast (02/27/2021 10:56 AM EST) Anatomical [...] who have questions please contact the health customer care representative that requested your imaging first. ? Electronically signed by: Hector Dias MD, [facility] ([phone]), at 03/04/2021 9:06 AM --------ORIGINAL REPORT -------- EXAMINATION: MRI PELVIS SOFT TISSUE (GI AUTOMATIC HEMMER) WWO CONTRAST CLINICAL HISTORY: perianal pain with [...] who have questions please contact the health customer care representative that requested your imaging first. ? Electronically signed by: Hector Dias MD, [facility] ([phone]), at 02/27/2021 3:58 PM Impressions 02/27/2021 3:58 PM EST 1. ??No [...] who have questions please contact the health customer care representative that requested your imaging first. ? Electronically signed by: Hector Dias MD, [facility] ([phone]), at 02/27/2021 3:58 PM Narrative 02/27/2021 3:58 PM EST EXAMINATION: MRI PELVIS SOFT TISSUE (GI AUTOMATIC HEMMER) WWO CONTRAST CLINICAL HISTORY: perianal pain with [...] 02/27/2021 EXAMINATION: MRI PELVIS SOFT TISSUE (GI AUTOMATIC HEMMER) WWO CONTRAST CLINICAL HISTORY: perianal pain with [...] patients who have questions please contactthe health customer care representative that requested your imaging first. Electronically signed by: Hector Dias MD, [facility]([phone]), at 02/27/2021 3:58 PM Skye Nair Korey Nieves BANK WORKER IMG MRI ORDERABLE S documented in this encounter Visit Diagnoses Diagnosis Chronic anal fissure Anal fissure documented in this encounter Administered Medications Inactive Administered Medications - up to 3 most recent administrations Medication Order MAR Action Action Date Dose Rate Site gadoterate meglumine (Dotarem) (0.5 mMol/mL) injection solution 0-100 mL 0-100 mL, Intravenous, ONCE PRN, 1 dose, Starting on Veronica 02/27/21 at 1005, Until Veronica 02/27/21 at 1047, Per Protocol, Radiology Contrast, Routine Given 02/27/2021 10:47 AM EST 13 mLs documented in this encounter Care Teams Motorbike Courier Relationship Specialty Start Date End Date Maria Dolores Delong MD [facility] [place] [address] PCP - General 02/11/10 09/07/21 documented as of this encounter
--- OUTSIDE RECORDS SUMMARY | 2023-10-14 01:04 | XMS_ITS | Encounter Summary ---
Author Organization [facility] [place] [address] Care Team Providers Care Fitness Professional Name Role Phone Maria Dolores Delong MD Primary Care Provider [phone] Encounter Details Date Type Department Care Team (Late st Contact Info) Description 08/14/2021 [place]phone [place] [address] Jacklyn Morgan RN Social History Tobacco Use [...] Encounter - Jacklyn Morgan RN - 08/14/2021 2:18 PM EDT Call placed to Wilfredo for update on status since starting Remicade. Due for her first maintenance dose soon. She states that one of her perinanal fissures has closed up considerably since starting the Remicade. The larger of the two fissures is still there but better then previously. Perianal pain much improved. She has also noted a decrease in bowel movements from up to 6 a day to now around 3 a day. Stools are formed with no blood. Most recent CRP (05/22/21) <0.05 Will submit PA for remicade 300 mg every 8 week maintenance dosing,. documented in this encounter Plan of Treatment Scheduled Procedures Name Priority Associated Diagnoses Date/Ti me COLONOSCOPY, DIAGNOSTIC (WRV U 3.26) Crohn's disease of small intestine with other complication documented as of this encounter Visit Diagnoses Not on filedocumented in this encounter Care Teams Fitness Professional Relationship Specialty Start Date End Date Maria Dolores Delong MD [facility] [address] CHILD ADVOCACY & [place] [address] PCP - General 02/11/10 09/07/21 documented as of this encounter
--- OUTSIDE RECORDS SUMMARY | 2023-10-14 01:04 | XMS_ITS | Encounter Summary ---
Author Organization [facility] [place] [address] Care Team Providers Care Book Repairer Name Role Phone Mraia Dolores Delong MD Primary Care Provider [phone] Reason for Visit * Reason Onset Date Comments Medication Refill 01/21/2021 Encounter Details Date Type Department Care Team (Late st Contact Info) Description 01/21/2021 [place] [address] Jacklyn Morgan, RN Social History Tobacco Use [...] on filedocumented in this encounter Care Teams Book Repairer Relationship Specialty Start Date End Date Maria Dolores Delong MD [facility] CHILD ADVOCACY & [place] [address] PCP - General 02/11/10 09/07/21 documented as of this encounter
--- OUTSIDE RECORDS SUMMARY | 2023-10-14 01:04 | XMS_ITS | Encounter Summary ---
Author Organization [facility] [place] [address] Care Team Providers Care Tool Hardener Name Role Phone Maria Dolores Delong MD Primary Care Provider [phone] Encounter Details Date Type Department Care Team (Late st Contact Info) Description 02/06/2021 [place] [address] Jacklyn Morgan RN Social History [...] Telephone Encounter - Jacklyn Morgan RN - 02/06/2021 7:59 AM EST Ridge placed to Wilfredo regarding her Nifedipine prescription. [facility] never received it. Call to [facility] revealed that they do compound at their location. Closest compounding pharmacy appears to be [facility] in [place]. Will send script there. Message left for pt Will also send message via portal documented in this encounter Plan of Treatment Scheduled Procedures Name Priority Associated Diagnoses Date/Ti me COLONOSCOPY, DIAGNOSTIC (WRV U 3.26) Crohn's disease of small intestine with other complication documented as of this encounter Visit Diagnoses Not on filedocumented in this encounter Care Teams Tool Hardener Relationship Specialty Start Date End Date Maria Dolores Delong MD [facility] DR CHILD [facility]VOCACY & [place] [address] PCP - General 02/11/10 09/07/21 documented as of this encounter
--- OUTSIDE RECORDS SUMMARY | 2023-10-14 01:04 | XMS_ITS | Encounter Summary ---
Author Organization Formerly [facility] [place] [address] Care Team Providers Care Urologic Surgeon Name Role Phone None Primary Care Provider Unavailabl e Encounter Details Date Type Department Care Team (Late st Contact Info) Description 01/06/2022 Telephone [place] [phone] Irene Landis RN Social History Tobacco Use [...] Telephone Encounter - Irene Landis RN - 01/09/2022 8:50 AM EDT AJAY Villalobos, provided number to MRI. Order changed to STAT priority * Telephone Encounter - Irene Landis RN - 01/07/2022 12:[address] Yadira Andrews would like her to get a pelvic MRI at [facility] as soon as possible. Let her know that it is OK to continue with infusions unless she becomes febrile. Requested she called our office if she is. Connected with Lynn to facilitate MRI scheduling. * Telephone Encounter - Irene Landis RN - 01/06/2022 2:42 PM EDT TC from Wilfredo, She went to her regular gynecologist today as she started having discharge yesterday from her vagina each time she had a bowel movement. Discharge yellow in color. Wilfredo states that per gynecologist at [facility] they noted fullness in her vagina that they believe is related toher bowels. Concerned for possible fistula and requested she contacted our office. Wilfredo is not having fevers, endorsing cramping. States her LMP ended a few days ago and she confirmed with her provider that this is not related to that. She continues to have healing with her current fissures and states the one that is newer is minor and not near her vagina. Due for her next Remicade dose 01/20. Requested she called our office back if she develops a fever. Will discuss with Dr. May documented in this encounter Plan of Treatment Scheduled Procedures Name Priority Associated Diagnoses Date/Ti me COLONOSCOPY, DIAGNOSTIC (WRV U 3.26) Crohn's disease of small intestine with other complication documented as of this encounter Visit Diagnoses Not on filedocumented in this encounter Care Teams Urologic Surgeon Relationship Specialty Start Date End Date None None PCP - General 09/08/21 documented as of this encounter
--- OUTSIDE RECORDS SUMMARY | 2023-10-14 01:04 | XMS_ITS | Encounter Summary ---
Author Organization [facility] [place] [address] Care Team Providers Care Marketing Automation Analyst Name Role Phone None Primary Care Provider Unavailabl e Reason for Referral * Diagnostic Test (Routine) - Closed Specialty Diagnoses / Procedures Referred By Shalini mark Referred To Contact Radiology Diagnoses Crohn's disease of perianal region with complication Procedures MRI Pelvis Soft Tissue (GI TOE PUNCHER) wwo Contrast Damaris May MD [facility] [place] [address] [place] [address] Referral ID Status Reason Start Date Expiration Date V isits Requested Visits Authorized [id number] Closed Specialty Service Requested 01/07/2022 07/09/2023 1 1 Encounter Details Date Type Department Care Team (Late st Contact Info) Description 01/07/2022 Orders [place] [address] [facility] [place] [address] Crohn's disease of perianal region with complication [...] Results * MRI Pelvis Soft Tissue (GI TOE PUNCHER) wwo Contrast (01/22/2022 6:57 AM EDT) Anatomical [...] who have questions please contact the health child care leader that requested your imaging first. ? Narrative 01/22/2022 10:57 AM EDT EXAMINATION: MRI PELVIS SOFT TISSUE (GI TOE PUNCHER) WWO CONTRAST CLINICAL HISTORY: perianal Crohn's disease. fullness around vagina on TOE PUNCHER exam and discharge with BMs, concern for [...] 01/22/2022 EXAMINATION: MRI PELVIS SOFT TISSUE (GI TOE PUNCHER) WWO CONTRAST CLINICAL HISTORY: perianal Crohn's disease. [...] patients who have questions please contactthe health child care leader that requested your imaging first. Damaris May MD IMG MRI ORDERABLES documented in this encounter Visit Diagnoses Diagnosis Crohn's disease of perianal region with complication Crohn's disease of perianal region with complication documented in this encounter Care Teams Marketing Automation Analyst Relationship Specialty Start Date End Date None None PCP - General 09/08/21 documented as of this encounter
--- OUTSIDE RECORDS SUMMARY | 2023-10-14 01:04 | XMS_ITS | Encounter Summary ---
Author Organization [facility] [place] [address] Care Team Providers Care Title I Paraprofessional Name Role Phone None Primary Care Provider Unavailabl e Encounter Details Date Type Department Care Team (Late st Contact Info) Description 12/17/2021 Telephone [place] [phone] Irene Landis RN Social History Tobacco Use [...] Telephone Encounter - Irene Landis RN - 12/17/2021 10:51 AM EDT error documented in this encounter Plan of Treatment Scheduled Procedures Name Priority Associated Diagnoses Date/Ti me COLONOSCOPY, DIAGNOSTIC (WRV U 3.26) Crohn's disease of small intestine with other complication documented as of this encounter Visit Diagnoses Not on filedocumented in this encounter Care Teams Title I Paraprofessional Relationship Specialty Start Date End Date None None PCP - General 09/08/21 documented as of this encounter
--- OUTSIDE RECORDS SUMMARY | 2023-10-14 01:04 | XMS_ITS | Encounter Summary ---
[place] [address] Care Team Providers Care Data Security Coordinator Name Role Phone Maria Dolores Delong MD Primary Care Provider [phone] Reason for Visit * Consultation (Routine) - Closed Specialty Diagnoses / Procedures Referred By Contac t Referred To Contact Colon and Rectal Surgery / General Surgery Diagnoses Anal fissure Anal skin tag Self mail [facility] Surgery [address] [place] [address] Referral ID Status Reason Start Date Expiration Date Visits Re quested Visits Authorized [id number] Closed 10/15/2020 10/15/2021 1 1 Encounter Details Date Type Department Care Team (Late st Contact Info) Description 11/29/2020 11:00 AM EDT Office [place] [address] Damaris Trimble MD [facility] [place] [address] Chronic anal fissure Social History Tobacco Use [...] Sign Reading Time Taken Comments Blood Pressure 138/89 11/29/2020 10:58 AM EDT Pulse 79 11/29/2020 10:58 AM EDT Temperature 36.8 ??C (98.3 ??F) 11/29/2020 10:58 AM E DT Respiratory Rate 16 11/29/2020 10:58 AM EDT Oxygen Saturation 100% 11/29/2020 10:58 AM EDT Inhaled Oxygen Concentration - - Weight 62.7 kg (138 lb 4.8 oz) 11/29/2020 10:58 AM EDT Height 162.6 cm (5' 4) 11/29/2020 10:58 AM EDT Body Mass Index 23.74 11/29/2020 10:58 AM EDT documented in this encounter Progress Notes * Damaris Trimble MD - 11/29/2020 11:00 AM EDT Colorectal Surgery Outpatient Consultation ~ Division of Colon and Rectal Surgery ~ [facility] HPI: Wilfredo Niño is a pleasant 35 y.o. female who we were asked to see by Dr. Smith regarding No chief complaint on file. . The patient's PCP is Maria Dolores Delong MD. Wilfredo Niño is a 35 yo woman who developed anal pain and bleeding last January/February. She see blood on the TP and in the toilet. She then develop associated skin tags that have been increasing in size and are very bothersome when she is exercising and sitting. She notes a burning pain with bowel movements that lasts for 30-60 minutes after a BM. She was treated with 2 types of cream. One sounds like a suppository but she does not remember the name. The other was diltiazem cream. She underwent a flex sig with Dr. Sousa 06/2020 who noted a chronic appearing anal fissure and associated skin tags. She was started on diltiazem ointment with a recommended course of 14 days to 6 weeks. She completed 4 weeks, applying the cream 3 times a day with no significant change in symptoms. 3 BMs a day, stools are soft and formed to loose. Eats a vegan diet. No other GI symptoms. She does note some vaginal symptoms - mainly associated discomfort at the vaginal opening - reports skin tags are anterior. No vaginal drainage. No history of STDs. She is otherwise healthy, no prior surgeries, no family history of CRCA or IBD. Review of Systems Constitutional: Negative for fever, weight loss and malaise/fatigue. Respiratory: Negative for cough and shortness of breath. Genitourinary: Negative for vaginal discharge. Gastrointestinal: Negative for abdominal discomfort. Psychiatric/Behavioral: Negative for depression and physiological symptoms of anxiety. Hematologic/Lymphatic: Negative for easy bleeding. Does not bruise/bleed easily. Allergic/Immunologic: Negative for immunocompromised state. Musculoskeletal: Negative for joint pain. Cardiovascular: Negative for leg edema. Skin: Negative for raised rash. COREFO Responses 11/29/2020 Incontinence Scale 2.77 Social Impact Scale 13.88 Frequency Scale 25 Stool Releated Aspects 100 Medication Scale 50 Total COREFO Score 25 The COREFO questionnaire is a validated questionnaire with 27 questions to assess colorectal functional outcome. Patients are asked to consider the two week period prior before filling out the questionnaire. Category scores range from zero to 100. A total score is calculated from the categories above, also ranging from zero to 100. A higher score represents an increased level of functional disturbance. Past medical history: No past medical history on file. Past surgical history: No past surgical history on file. Allergies: Patient has no known allergies. Medications: reviewed in the electronic medical record. No current outpatient medications on file prior to visit. No current facility-administered medications on file prior to visit. Social history: reports that she has quit smoking. Her smoking use included cigarettes. She smoked 1.00 pack per day. She has never used smokeless tobacco. Family medical history: No family history on file. Patient denies a family history of: colorectal cancer, colorectal polyps, diverticular disease, Crohn disease and ulcerative colitis. Patient admits a family history of: none. Physical exam: Vitals:Blood pressure 138/89, pulse 79, temperature 36.8 ??C (98.3 ??F), temperaturesource Temporal, resp. rate 16, height 162.6 cm (5' 4), weight 62.7 kg (138 lb 4.8 oz), SpO2 100 %.@BMI BMI: Body mass index is 23.74 kg/m??. General Appearance: NAD Neuro: normal gait Psych: Normal affect Eyes: EOMI ENT: Mask CV: NSR Resp: CTAB Lymph: No cervical LAD GI Abdomen: Soft NT ND Digital Rectal Exam: The patient was examined in the prone alma knife position with Mary and Pierre assisting. The perianal skin has chronic changes to the perianal skin - especially in the posterior. There are 2, 8mm firm skin tags in the right anterior and left anterior anal margin. There are chronic appearing fissures on the right and left lateral side of the anus and smaller fissures in the posterior anal canal. The anus is closed. On digital rectal exam resting tone is normal and squeeze tone is normal. There is normal relaxation with valsalva. There are no masses. There is no gross blood. There is minimal tenderness to palpation. Anoscopy: The well lubricated anoscope was inserted into the anal canal and the entire anal canal and distal rectum were inspected. Findings include: no evidence of proctitis. Multiple fissures - posterior, left anterior, right anterior. A photo was taken for the chart Discussed finding of atypical fissures, recommended biopsy to assess for Crohn's disease, lichen sclerosis, other causes of atypical fissures. Ms. Niño agreed to proceed. After cleaning the skin with hibiclens, the skin and anal canal were numbed with 5cc 1% lido w epi Biopsy forceps and incisonal biopsy with 15 blade we used to biopsy both the fissures and and the skin tag. Separate biopsy of posteior anal margin skin was taken with biopsy forceps. NO bleeding after the biopsies. Ext: No LE edema. Endoscopy: reviewed. Path: reviewed. Impression/Plan: Wilfredo Niño is a 35 yo woman with anal pain and bleeding for about 10 months. Normal flex sig besides chronic anal fissures. Did not improve with 4 weeks of diltiazem ointment. On exam, she has multiple fissures which are lateral and associated with perianal skin changes and largeskin tags which are atypical in location. Given these findings, biopsies were done today to rule out other pathology. I will call her with biopsy results (may take 7-10 business days). Discussed possible diagnoses and treatment options. I did give her the handout for setting up a [facility] account and let her know that her pathology would be visible to her at the time I can see it. Will finalize a treatment plan and follow up once her pathology is back Damaris Trimble MD FACS FASCRS cable lacer Division of Colon and Rectal Surgery [facility] Pager [phone] documented in this encounter Plan of Treatment Scheduled Procedures Name Priority Associated Diagnoses Date/Ti me COLONOSCOPY, DIAGNOSTIC (WRV U 3.26) Crohn's disease of small intestine with other complication documented as of this encounter Procedures Procedure Name Priority Date/Time Associated Diagnosis Comments SPECIMEN TO PATHOLOGY Routine 11/29/2020 11:53 AM EDT Chronic anal fissure SPECIMEN TO PATHOLOGY Routine 11/29/2020 11:53 AM EDT Chronic anal fissure SURGICAL PATHOLOGY REPORT Routine 11/29/2020 11:52 AM EDT documented in this encounter Results * Specimen to Pathology (11/29/2020 11:53 AM EDT) AP Specimen 11/29/2020 11:5 3 AM EDT 11/29/2020 11:53 AM EDT Narrative [facility] - 11/29/2020 11:53 AM EDT Specimen requisition ordered. ??Separate Pathology report to follow Damaris Trimble MD PATHOLOGY/CYTOLOGY O DOYLE Performing Organization Address [facility] Co de Phone Number [facility] [place] [address] * Specimen to Pathology (11/29/2020 11:53 AM EDT) AP Specimen 11/29/2020 11:5 3 AM EDT 11/29/2020 11:53 AM EDT Narrative [facility] - 11/29/2020 11:53 AM EDT Specimen requisition ordered. ??Separate Pathology report to follow Damaris Trimble MD PATHOLOGY/CYTOLOGY O DOYLE Performing Organization Address [facility] Co de Phone Number [facility] [place] [address] * Surgical Pathology Report (11/29/2020 11:52 AM EDT) FINAL DIAGNOSIS (AP) [id number] ? Location: 4L The signing pathologist has (i) examined the relevant preparation(s) for the specimen(s) and (ii) rendered or confirmed the diagnosis(es). . ?Surgical Pathology DIAGNOSIS A - Anterior anal canal and right anterior skin tag, biopsy: - Benign anal skin with chronic inflammation and epithelioid granulomas, consistent with involvement by Crohn's disease if supported by clinical findings. B - Posterior anal margin skin, biopsy: - Benign anal skin. Electronically signed by: ?Anton Hopkins MD Verified: ??12/06/2020 16:16 ??Pathologist Performed at: ??-[facility] Dept. of Pathology, [place], [place] ADDITIONAL STUDIES Whole slide scan: A1 SPECIMEN(S) SUBMITTED A - Biopsies from anterior anal canal and right anterior skin tag., biopsy (Multiple) B - Posterior anal margin skin biopsy, biopsy (2) CLINICAL INFORMATION Atypical anal fissures-R/O Crohn's disease, lichen sclerosis, cancer SPECIMEN PROCESSING A - Labeled/Fixative : #1, formalin. Quantity/Size: Three, 0.2 x 0.1 x 0.17 m-0.6 x 0.4 x 0.3 cm. Tissue Description: Two wispy morrissey-pink soft tissue fragments and a rubbery polypoid morrissey-pink skin fragment. Sections/Process ing: Entirely submitted in 2 cassettes as follows: ?A1: ??Skin fragment, inked and trisected ?A2: ??2 intact tissues B - Labeled/Fixative : #2, formalin. Quantity/Size: Two, 0.1 and 0.2 cm. Tissue Description: Soft, wispy morrissey-white tissues. Sections/Process ing: Submitted en toto ??in 1 cassette labeled B1. ??ajw 12/06/2020 4:16 PM EDT [facility] 11/29/2020 11:5 2 AM EDT Damaris Trimble MD PATHOLOGY/CYTOLOGY O RDCYRIL [facility] [place] [address] documented in this encounter Visit Diagnoses Diagnosis Chronic anal fissure Anal fissure documented in this encounter Care Teams Data Security Coordinator Relationship Specialty Start Date End Date Maria Dolores Delong MD [facility] [address] CHILD ADVOC[facility]Y [place] [address] PCP - General 02/11/10 09/07/21 documented as of this encounter
--- OUTSIDE RECORDS SUMMARY | 2023-10-14 01:04 | XMS_ITS | Encounter Summary ---
Author Organization [facility] [place] [address] Care Team Providers Care Door Paneler Name Role Phone Maria Dolores Delong MD Primary Care Provider [phone] Encounter Details Date Type Department Care Team (Late st Contact Info) Description 01/30/2021 Orders [place] [address] Skye Nieves APRN [facility] [place] [address] Chronic anal fissure Social History Tobacco Use [...] as of this encounter Visit Diagnoses Diagnosis Chronic anal fissure Anal fissure documented in this encounter Care Teams Door Paneler Relationship Specialty Start Date End Date Maria Dolores Delong MD [facility] CHILD ADVOCACY [facility] [place] [address] PCP - General 02/11/10 09/07/21 documented as of this encounter
--- OUTSIDE RECORDS SUMMARY | 2023-10-14 01:04 | XMS_ITS | Encounter Summary ---
Author Organization [facility] [place] [address] Care Team Providers Care It Architecture Consultant Name Role Phone None Primary Care Provider Unavailabl e Encounter Details Date Type Department Care Team (Latest Contact Info) Description 12/15/2021 8:00 AM EDT TH Visit (TeleHealth) [place] [address] Damaris May MD [facility] [place] [address] Crohn's disease of perianal region with complication; [...] * Patient Instructions* Damaris May MD - 12/15/2021 8:00 AM EDT Mildly abnormal LFTs - improved. Recommend: Resume Remicade at lower dose for now 300mg (5mg/kg) ([facility]), would move back to 10 mg/kg when able Continue low dose 6-MP 25mg/day - be consistent about taking this and limit sun exposure Labs with celiac disease blood tests and stool calprotectin (to measure inflammation in the bowels)- [facility] Talk to OB/new PCP about iron - consider infusions Colonoscopy to evaluate for mucosal healing of ileal disease - please call [phone] to schedule- ok to hold off a few months while fissures are healing if labs are stable and calprotectin is notsignificantly elevated, but favor sooner rather than later Pelvic floor physical therapy Use Miralax if needed Continue to avoid smoking tobacco Follow-up: 5 months with me (if sooner follow-up is needed, with Adia) documented in this encounter Progress Notes * Damaris May MD - 12/15/2021 8:00 AM EDT [facility] Section of Gastroenterology and Hepatology IBD Telemedicine Follow-Up Visit PCP: None Referring provider: Adia Nieves NP Colorectal: Damaris Trimble MD HPI This is a 36 y.o. female former smoker who is engaging in follow-up for Crohn's disease manifestingas severe perianal fissures with histologic inactive proctitis and mild ileal disease. Meds: Remicade 600mg Q8 weeks, 1/2 tab of 6-MP Interval follow-up Since last visit we upped her Remicade to 10mg/kg, got one dose in October Nifedipine x 6 weeks She cancelled her infusion 12/11 04/23 to a rash She has not met with colorectal since our last visit Rash: Face (itchy), neck, chest, abdomen - was wearing a bathing suit. Improving. 50% better. Went to a taffy puller who didn't seem to confident in dx. Suspicion is that it could be sun exposure, sunscreen - photosensitive dermatitis. Sporadic with 6-MP perhaps that also was why per derm. No specific med for it. Fissures improving - new one trying to develop but seems not as aggressive Feeling of fullness when Crohn's is inflamed. When she took the larger dose - felt really good for 2 weeks - felt like there was no inflammation (no bloating, heaviness and fullness) in her gut, then felt sicker - weak, no energy, weak, struggling - almost like a crash - persisted. More fatigued. Hair loss. BMs 1-2x in the AM Avoiding spicy foods Heavy menses - fibroid Repeat labs September 25 2021 ALT 28, AST 22, ferritin 13, iron sat 7%, B12 390, IFX 33 - mid-cycle (4 week level), Hgb 11.2, Hct34, WBC 3.5 No questionnaires on file. IBD Qorus Provider [...] Hgb 01/23/2021 was 8.4), Plts 243, AST/ALT , T bili 1.1, D bili 0.3, CRP [...] somewhat ?? IFX 33 mid-cycle after 300mg Patient Active Problem List Diagnosis Code ??? 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 Crohn's disease of perianal region with complication K50.119 ??? Crohn's disease of small intestine with other complication K50.018 Current Outpatient Medications: ??? mercaptopurine (Purinethol) 50 mg tablet, TAKE ONE-HALF TABLET BY MOUTH EVERY DAY FOR CROHNS DISEASE Indications: Crohn's disease, Disp: 45 tablet, Rfl: 3 ??? lidocaine/hydrocortisone ac (lidocaine HCl-hydrocortison ac) 2 %-2 % (7 gram) Kit, Place 1 Application rectally 2 times daily as needed (perianal pain). Apply pea sized amount to affected perianal area twice daily as needed x 4 weeks (Patient not taking: Reported on 09/08/2021), Disp: 1 kit, Rfl: 0 ??? NIFEdipine, Bulk, Powder, 0.2% in aquaphor or plastibase. Apply pea size amount twice daily x 6weeks (Patient not taking: Reported on 09/08/2021), Disp: 100 g, Rfl: 1 ??? tacrolimus (Protopic) 0.1 % Ointment, Apply to external anal fissure twice daily x 8 weeks (Patient not taking: No sig reported), Disp: 60 g, Rfl: 0 No Known Allergies No past medical history on file. Past Surgical History: Procedure Laterality Date ??? PRO COLONOSCOPY, BIOPSY N/A 01/31/2021 COLONOSCOPY FLEXIBLE, WITH BX (WRVU 3.66) performed by Damaris May MD at [facility] ENDOSCOPY ??? PRO COLONOSCOPY, DIAGNOSTIC N/A 01/31/2021 COLONOSCOPY, DIAGNOSTIC performed by Damaris May MD at [facility] ENDOSCOPY Social History Socioeconomic History ??? [...] is engaging in follow-up for Crohn's disease. [place] of disease and symptoms are perianal fissures (+granulomas on biopsy) and recurrent (skin tags) without detectable fistula on MRI pelvis. 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 Small perianal cyst on MRI, doubt this would be an abscess given the absence of a fistula. She does have mild inflammatory ileal disease with IC valve involvement. Fissures healing on Remicade, but incomplete. New rash - likely photosensitivity per dermatology in the setting of 6-MP. Improving. She'd like tocontinue 6-MP. Seems less likely related to infliximab. Counseled on sun exposure. Fatigue and abdominal bloating - she noticed a significant improvement in symptoms for 2 weeks after her infliximab dose and then a worsening again, feels this may be inflammation. Her ileal disease has bene mild and I question If this is more related to fibroids & EVELIN +/- other factors than Crohn's. Would be helpful to have a true trough but we do know that mid-cycle (4 weeks s/p infusion) her level was 33 and antibodies are unlikely with 6-MP. I had hoped we could continue the higher doseof infliximab; Wilfredo really prefers to re- introduce infliximab at a lower dose so we will try this first. Mildly abnormal LFTs - improved. Recommend: ?? Resume Remicade at lower dose for now per pt preference 300mg (5mg/kg) Q8 weeks ([facility]), would move back to 10 mg/kg when able ?? Continue low dose 6-MP 25mg/day - be consistent about taking this and limit sun exposure ?? Labs with celiac serologies for EVELIN and stool calprotectin ?? Talk to OB/new PCP about iron - consider infusions as oral iron is not well tolerated (harder stools) ?? Colonoscopy to evaluate for mucosal healing of ileal disease - please call [phone] to schedule - ok to hold off a few months while fissures are healing if labs are stable and calprotectin is not significantly elevated, but favor sooner rather than later ?? Pelvic floor physical therapy ?? Use Miralax if needed ?? Continue to avoid smoking tobacco Follow-up: 5 months with me (if sooner follow-up is needed, with Adia) IBD Health Maintenance (updated periodically) (1) [...] with above. The patient was located in [place] at the time of their visit. TIME SPENT WITH PATIENT Time spent face to face with patient on the day of the encounter: 30 minutes Time spent documenting after encounter on the day of the encounter: 5 minutes Total time: 35 minutes Damaris May MD 12/16/21 Damaris May MD [employer] Section of Gastroenterology and Hepatology [facility] [email or web address] ([email or web address]) documented in this encounter Plan of Treatment Scheduled Procedures Name Priority Associated Diagnoses Date/Ti me COLONOSCOPY, DIAGNOSTIC (WRV U 3.26) Crohn's disease of small intestine with other complication documented as of this encounter Procedures Procedure Name Priority Date/Time Associated Diagnosis Comments ORDS - PROVIDER CARE SCAN 12/16/2021 12:00 AM EDT documented in this encounter Results * SCAN DOC: ORDS - PROVIDER CARE (12/16/2021 12:00 AM EDT) Narrative 12/16/2021 12:00 AM EDT Ordered by an unspecified provider. Scanning Provider MEDIA MGR SCAN EXT O RDR/RSLT documented in this encounter Visit Diagnoses Diagnosis Crohn's disease of perianal region with complication Crohn's disease of small intestine with other complication documented in this encounter Care Teams It Architecture Consultant Relationship Specialty Start Date End Date None None PCP - General 09/08/21 documented as of this encounter
--- NOTE | 2023-10-14 13:00 | DI.US_ITS ---
Exam(s) US PELVIS EXAM: US PELVIS CLINICAL HISTORY: check uterine fibroids, post embolization,D25.9 TECHNIQUE: Ultrasound of the pelvis was performed transabdominally. Patient apparently refused martinez svaginal exam. COMPARISON: US US PELVIS TRANSVAGINAL from 08/24/2022 FINDINGS: UTERUS: Patient underwent uterine fibroid embolization in August 2022 Uterus measures 11.4 cm length x 6.2 cm AP x 6.6 cm wide. There are 3 uterine fibroids noted, all exhibiting echogenic circumferences, not previously present a nd most probably reflecting interval treatment.With respect to the largest fibroid which previously m easured 8 cm, it is again noted to be in the posterior myometrium and presently measures 5.1 x 5.0 x 6.4 cm There 2 other posterior myometrial fibroids measuring 2.3 x 2.3 x 3.0 cm and 2.6 x 2.7 x 2.6 cm. Endometrial thickness: Difficult to get accurate reading as there is no transvaginal study and is aga in noted to be somewhat compressed by the largest 6.4 cm subserosal fibroid. The visualize part the endometrial lining measures 1.5 cm (15 mm). There is no obvious fluid in the endometrial canal. CERVIX: There are no obvious nabothian cysts. RIGHT OVARY: Measures 3.9 x 2.4 x 3.9 cm No significant cysts nor masses evident in the right ovary. LEFT OVARY: Measures 3.3 x 1.9 x 2.8 cm No significant cysts nor masses evident in the left ovary. CUL-DE-SAC: No free fluid evident. IMPRESSION: 1. When compared to the prior ultrasound of 08/24/2022 the largest fibroid now exhibits maximum measu rement of 6.4 cm. Previously measured 8 cm. All 3 uterine fibroids now exhibit identical circumfere ntial hyperechoic rims which are most probably related to the interval embolization treatment. Parti ally visualized endometrium measures 15 mm. 2. No abnormal ovarian/adnexal findings. 3. No free fluid evident in the adnexal regions and cul-de-sac. DATA REPOSITORY:
== END ==
PROVIDERS: Visit Provider Obstetrics & Gynecology
DX: D25.9 Leiomyoma of uterus, unspecified (principal)
CPT/HCPCS: 76856

== ENCOUNTER 2024-07-10 02:00 | Outpatient (CLI) | payer MEDICAID, SELFPAY ==
--- NOTE | 2024-07-10 09:20 | DI.RAD_ITS ---
Exam(s) XR FOOT LT COMPLETE EXAM: XR FOOT LT COMPLETE CLINICAL HISTORY: Left foot pain,m79.672. TECHNIQUE: 2D digital imaging was performed of the left foot. Three images were obtained. AP, obli que and lateral views were obtained. COMPARISON: CR XR FOOT LT COMPLETE from 12/21/2022 FINDINGS: BONES: No acute fracture is present. No bony destructive lesion is seen. There is again seen a bipart ite medial sesamoid at the head of the 1st metatarsal bone. JOINTS: No dislocation present. There is a hallux valgus deformity. SOFT TISSUE: Normal. IMPRESSION: Hallux valgus deformity is present. DATA REPOSITORY: RADIATION DOSE DELIVERED:
== END 2024-07-10 02:20 ==
LOC: DI 02:00
PROVIDERS: PCP Nurse Practitioner Family; Visit Provider Podiatrist
DX: M79.672 Pain in left foot (principal); M20.12 Hallux valgus (acquired), left foot
CPT/HCPCS: 73630

== ENCOUNTER 2025-03-05 12:02 | Outpatient (REF) | payer MEDICAID, SELFPAY ==
--- NOTE | 2025-03-05 11:30 | PAPFT_PTH ---
PATIENT: Wilfredo Niño LOC: [facility] U#:[id number] AGE/SX: 39/F ROOM: RE03/05/[address]: Lynn Cedeño DO : 1985 BED: DIS: 03/05/2025 SPEC #: [id number] RECD: 03/05/25 12:57 STATUS: DARLINGSarah REQ #: [id number] TEO: 03/05/25 11:[address]: Lynn Cedeño DEPT: [facility] Cytology RECD BY: Sheryl Nicolas ENTERED: 03/05/25 12:58 SP TYPE: PAPFT OTHR DR: CAROL CARTAGENA NP Tissues: 1 - CX/ENDOCX FOR PAP SMEARS Procedures: PAP THIN PREP/[facility] Screening HPV DNA PROBE Comments: [id number] (HPV 16 & 18/45)
== END 2025-03-05 12:03 | disposition home or self-care (01) ==
LOC: LBN 12:02
PROVIDERS: PCP Nurse Practitioner Family; Visit Provider Obstetrics & Gynecology
DX: Z12.4 Encounter for screening for malignant neoplasm of cervix (principal)
CPT/HCPCS: 88142; 87624